=== PATIENT | male | born 1960 | race Caucasian/White ===

== ENCOUNTER 2016-12-14 13:12 | Observation (INO) | payer MEDICAID, MEDICARE ==
[~2016-12-14] VITALS: Ht 165.1 cm; Wt 77.8 kg
[~2016-12-14 13:12] MED LIST: ACET-1600 PO; ACET325T14 PO; AMLO10TA2 PO; ASPI-496 PO; ASPI-515 PO; ASPI-621 PO; CARV-39 PO; CARV3.1212 PO; CARV3.122 PO; CARV6.2512 PO; CLOP75TA PO; ENAL5TAB PO; ENAL5TAB34 PO; ESCI10TA10 PO; ESCI20TA PO; FLUO20CA8 PO; FURO-92 PO; FURO-93 PO; GABA300C PO; GABA600T2 PO; GLYB2.5T2 PO; HYDR-3138 PO; HYDR-3240 PO; IBUP800T PO; INSU100V8 SQ; INSULIN GLARGINE HUM REC ANLOG SQ; ISOS30TA8 PO; LISI2.5T PO; LISI40TA PO; LISI5TAB7 PO; LITH150C PO; LORA-445 PO; LORA10TA62 PO; MAGN400T26 PO; MAGN64TA9 PO; METF100010 PO; METF10002 PO; METF500T3 PO; METH500T7 PO; METO10TA2 PO; METO5TAB57 PO; MULT-257 PO; NITR0.4T SL; OMEP20TA62 PO; OMEP40CA6 PO; OXYC5TAB3 PO; PANT40TA3 PO; POTA20TA14 PO; SIMV20TA PO; SIMV20TA3 PO; SIMV40TA3 PO; SPIR25TA3 PO; TRAM-28 PO
[2016-12-14] MEDS ORDERED: MAALOX/HYOSCYAMINE/LIDOCAINE 45 ML BOTTLE PO ONE (13:30)
[2016-12-14] MEDS ORDERED: PLEASE ENTER HEIGHT AND WEIGHT MC SCH (13:30)
[2016-12-14] MEDS ORDERED: ASPIRIN 81 MG TABLET CHEW PO ONE (13:30)
[2016-12-14] MEDS ORDERED: SODIUM CHLORIDE FLUSH 10ML SYR IVF ONE (13:30)
[2016-12-14] MEDS ORDERED: ONDANSETRON 2MG/ML, 2ML IVPush ONE (13:30)
[2016-12-14 13:52] LABS: BLOOD UREA NITROGEN 20 mg/dL (7-18)
[2016-12-14 13:59] LABS: IS PT STATUS REG ER OR PRE ER? YES
[2016-12-14] MEDS ORDERED: MORPHINE SULFATE 4 MG/ML, 1ML ONE ×2 (14:13→15:43)
[2016-12-14] MEDS ORDERED: ONDANSETRON 2MG/ML, 2ML ONE (14:13)
[2016-12-14] MEDS ORDERED: MAALOX/HYOSCYAMINE/LIDOCAINE 45 ML BOTTLE ONE (14:13)
[2016-12-14] MEDS: MORPHINE SULFATE 4 MG/ML, 1ML IVPush PRN ×2 (14:15→15:45)
[2016-12-14] MEDS ORDERED: SODIUM CHLORIDE FLUSH 10ML SYR IVF PRN (15:00)
[2016-12-14] MEDS ORDERED: HYDROcodone/APAP 5/325 TABLET PO PRN (15:30)
[2016-12-14] MEDS ORDERED: NITROGLYCERIN 0.4 MG BOTTLE (25 TABS) SL PRN (15:30)
[2016-12-14] MEDS ORDERED: ACETAMINOPHEN 325 MG TABLET PO PRN (15:30)
[2016-12-14] MEDS ORDERED: DOCUSATE 100 MG CAPSULE PO PRN (15:30)
[2016-12-14] MEDS ORDERED: hydrALAzine 20 MG/ML, 1ML IVPush PRN (15:30)
[2016-12-14] MEDS ORDERED: LORazepam 2 MG/ML, 1ML IVPush PRN (15:30)
[2016-12-14] MEDS ORDERED: morphine SULFATE 10 MG/ML, 1ML IVPush PRN (15:30)
[2016-12-14] MEDS ORDERED: ONDANSETRON 2MG/ML, 2ML IVPush PRN (15:30)
[2016-12-14] MEDS ORDERED: POLYETHYLENE GLYCOL 17 GM PACKET PO PRN (15:30)
[2016-12-14 16:04] VITALS: BP 111/76
[2016-12-14] MEDS: HEPARIN 5,000 UNITS/ML, 1ML SQ SCH (16:46)
[2016-12-14] MEDS ORDERED: SODIUM PHOSPHATE 30 MMOL in SODIUM CHLORIDE 0.9% 500 ML IV ONE (17:00)
[2016-12-14 19:34] LABS: IS PT STATUS REG ER OR PRE ER? NO
[2016-12-14 19:45] VITALS: BP 118/76
[2016-12-14] MEDS ORDERED: SIMVASTATIN 40 MG TABLET PO SCH (21:00)
[2016-12-14] MEDS ORDERED: QUETIAPINE 100MG TABLET PO PRN (21:00)
[2016-12-14] MEDS ORDERED: QUETIAPINE 100MG TABLET PO SCH (21:00)
[2016-12-15 01:22] VITALS: BP 150/80
[2016-12-15] MEDS: HEPARIN 5,000 UNITS/ML, 1ML SQ SCH ×2 (01:24→07:36)
[2016-12-15 02:32] LABS: ASPARTATE AMINO TRANSFERASE 13 U/L (15-37); BLOOD UREA NITROGEN 22 mg/dL (7-18)
[2016-12-15 02:37] LABS: IS PT STATUS REG ER OR PRE ER? NO
[2016-12-15 07:24] VITALS: BP 114/74
[2016-12-15] MEDS ORDERED: FLUOXETINE 20 MG CAPSULE PO SCH (09:00)
[2016-12-15] MEDS ORDERED: ASPIRIN 81 MG TABLET EC PO SCH (09:00)
[2016-12-15 10:12] VITALS: BP 173/102
[2016-12-15] MEDS ORDERED: LORA-446 PO (12:32)
[2016-12-15] MEDS ORDERED: HYDR25CA PO (13:01)
== END 2016-12-15 16:01 | disposition home or self-care (01) ==
LOC: ED 14:13 → EDIP 14:35 → INTOOBSV 14:35 → 5SO 16:06
PROVIDERS: ADMIT Internal Medicine; ATTEND Internal Medicine
DX: I25.110 Atherosclerotic heart disease of native coronary artery with unstable angina pectoris (principal); I50.22 Chronic systolic (congestive) heart failure; I13.0 Hypertensive heart and chronic kidney disease with heart failure and stage 1 through stage 4 chronic kidney disease, or unspecified chronic kidney disease; I25.5 Ischemic cardiomyopathy; E11.22 Type 2 diabetes mellitus with diabetic chronic kidney disease; N18.2 Chronic kidney disease, stage 2 (mild); E78.5 Hyperlipidemia, unspecified; F41.9 Anxiety disorder, unspecified; F31.9 Bipolar disorder, unspecified; F14.10 Cocaine abuse, uncomplicated; D72.829 Elevated white blood cell count, unspecified; E83.39 Other disorders of phosphorus metabolism; D63.8 Anemia in other chronic diseases classified elsewhere; I25.2 Old myocardial infarction; K21.9 Gastro-esophageal reflux disease without esophagitis; E66.9 Obesity, unspecified; Z95.1 Presence of aortocoronary bypass graft; Z95.0 Presence of cardiac pacemaker; Z91.5 Personal history of self-harm; Z91.14 Patient's other noncompliance with medication regimen; Z95.5 Presence of coronary angioplasty implant and graft; Z95.810 Presence of automatic (implantable) cardiac defibrillator; Z80.9 Family history of malignant neoplasm, unspecified; Z82.41 Family history of sudden cardiac death; Z82.49 Family history of ischemic heart disease and other diseases of the circulatory system
CPT/HCPCS: 36415; 71010; 80048; 80053; 80061; 82040; 82962; 83036; 83735; 83880; 84100; 84443; 84484; 85025; 93005; 96365; 96366; 96372; 96375; 96376; 99285; C8929; G0378; J1644; J2060; J2270; J2405; J7040

== ENCOUNTER 2016-12-17 05:45 | Emergency (ER) | payer MEDICARE, MEDICAID ==
[~2016-12-17 05:45] MED LIST changes: +HYDR25CA PO; +LORA-446 PO
[2016-12-17 05:47] VITALS: BP 132/90
[2016-12-17] MEDS ORDERED: DIPH,PERTUSS(ACELL),TET VAC/PF 0.5 ML IM-VACC ONE ×2 (06:00→06:06)
[2016-12-17] MEDS ORDERED: LIDOCAINE 1%, 20ML SQ ONE (06:00)
[2016-12-17] MEDS ORDERED: CLOP75TA22 PO (06:02)
[2016-12-17] MEDS ORDERED: HYDR25TA6 PO (06:03)
[2016-12-17] MEDS ORDERED: LIDOCAINE 1%, 20ML ONE (06:05)
== END 2016-12-17 07:52 | disposition home or self-care (01) ==
LOC: ED 07:09
DX: S01.311A Laceration without foreign body of right ear, initial encounter (principal); I11.0 Hypertensive heart disease with heart failure; I50.9 Heart failure, unspecified; E11.9 Type 2 diabetes mellitus without complications; I25.810 Atherosclerosis of coronary artery bypass graft(s) without angina pectoris; Z95.1 Presence of aortocoronary bypass graft; W19.XXXA Unspecified fall, initial encounter; Y93.89 Activity, other specified; Y92.009 Unspecified place in unspecified non-institutional (private) residence as the place of occurrence of the external cause; Y99.9 Unspecified external cause status
CPT/HCPCS: 12011; 70450; 90471; 90715

== ENCOUNTER 2017-01-11 09:30 | Observation (INO) | payer MEDICARE, MEDICAID ==
[~2017-01-11] VITALS: Ht 170.2 cm; Wt 82.8 kg
[~2017-01-11 09:30] MED LIST changes: +CLOP75TA22 PO; +HYDR25TA6 PO
[2017-01-11] MEDS ORDERED: ONDANSETRON 2MG/ML, 2ML ONE (09:50)
[2017-01-11] MEDS ORDERED: MORPHINE SULFATE 4 MG/ML, 1ML ONE ×2 (09:50→10:14)
[2017-01-11] MEDS: MORPHINE SULFATE 4 MG/ML, 1ML IVPush PRN ×2 (09:53→10:15)
[2017-01-11] MEDS ORDERED: ONDANSETRON 2MG/ML, 2ML IVPush ONE (10:00)
[2017-01-11] MEDS ORDERED: SODIUM CHLORIDE FLUSH 10ML SYR IVF ONE (10:00)
[2017-01-11 10:24] LABS: ASPARTATE AMINO TRANSFERASE 9 U/L (15-37); BLOOD UREA NITROGEN 22 mg/dL (7-18)
[2017-01-11 10:29] LABS: IS PT STATUS REG ER OR PRE ER? YES
[2017-01-11] MEDS ORDERED: ACAM333T7 PO (10:36)
[2017-01-11] MEDS ORDERED: PANT40TA5 PO (10:36)
[2017-01-11] MEDS ORDERED: FLUO20CA8 PO (10:36)
[2017-01-11] MEDS ORDERED: ESCI20TA PO (10:36)
[2017-01-11] MEDS ORDERED: GABA300C10 PO (10:36)
[2017-01-11] MEDS ORDERED: NAPR500T3 PO (10:36)
[2017-01-11] MEDS ORDERED: QUET100T PO (10:36)
[2017-01-11] MEDS ORDERED: SODIUM CHLORIDE 0.9% 1,000ML IVBOLUS ONE (11:30)
[2017-01-11] MEDS ORDERED: ENOXAPARIN 40 MG/0.4 ML ONE (12:27)
[2017-01-11] MEDS: ENOXAPARIN 40 MG/0.4 ML SQ SCH (12:29)
[2017-01-11] MEDS ORDERED: BISACODYL 10 MG SUPP PR PRN (12:30)
[2017-01-11] MEDS ORDERED: POLYETHYLENE GLYCOL 17 GM PACKET PO PRN (12:30)
[2017-01-11] MEDS ORDERED: ONDANSETRON 2MG/ML, 2ML IVPush PRN (12:30)
[2017-01-11] MEDS ORDERED: NITROGLYCERIN 0.4 MG BOTTLE (25 TABS) SL PRN (12:30)
[2017-01-11] MEDS ORDERED: ACETAMINOPHEN 325 MG TABLET PO PRN (12:30)
[2017-01-11] MEDS ORDERED: DOCUSATE 100 MG CAPSULE PO PRN (12:30)
[2017-01-11 14:01] VITALS: BP 125/84
[2017-01-11] MEDS: morphine SULFATE 10 MG/ML, 1ML IVPush PRN ×3 (14:34→21:16)
[2017-01-11 16:26] LABS: IS PT STATUS REG ER OR PRE ER? NO
[2017-01-11] MEDS: GABAPENTIN 300 MG CAPSULE PO SCH ×2 (17:24→21:17)
[2017-01-11] MEDS: ACAMPROSATE 333 MG TABLET.DR PO SCH ×2 (17:24→21:17)
[2017-01-11 17:33] LABS: DAU SCREEN DISCLAIMER
[2017-01-11 19:59] VITALS: BP 110/75
[2017-01-11] MEDS ORDERED: SIMVASTATIN 40 MG TABLET PO SCH (21:00)
[2017-01-11] MEDS: SODIUM CHLORIDE FLUSH 3ML SYRINGE IVF SCH (21:00)
[2017-01-11] MEDS ORDERED: QUETIAPINE 100MG TABLET PO SCH (21:00)
[2017-01-11] MEDS: PANTOPROZOLE 40MG TABLET PO SCH (21:17)
[2017-01-11] MEDS: NAPROXEN 500 MG TABLET PO SCH (21:17)
[2017-01-11 23:02] LABS: IS PT STATUS REG ER OR PRE ER? NO
[2017-01-12] MEDS: morphine SULFATE 10 MG/ML, 1ML IVPush PRN ×2 (00:36→06:26)
[2017-01-12 00:38] VITALS: BP 110/74
[2017-01-12 05:25] LABS: BLOOD UREA NITROGEN 21 mg/dL (7-18)
[2017-01-12 07:34] VITALS: BP 100/67
[2017-01-12] MEDS: PANTOPROZOLE 40MG TABLET PO SCH (07:55)
[2017-01-12] MEDS: ACAMPROSATE 333 MG TABLET.DR PO SCH ×2 (07:55→14:57)
[2017-01-12] MEDS: GABAPENTIN 300 MG CAPSULE PO SCH ×2 (07:55→14:57)
[2017-01-12] MEDS: NAPROXEN 500 MG TABLET PO SCH (07:55)
[2017-01-12] MEDS: SODIUM CHLORIDE FLUSH 3ML SYRINGE IVF SCH (07:56)
[2017-01-12] MEDS ORDERED: REGADENOSON 0.4 MG/5 ML SYRINGE ONE (08:00)
[2017-01-12] MEDS ORDERED: CITALOPRAM 20 MG TABLET PO SCH (09:00)
[2017-01-12] MEDS ORDERED: ASPIRIN 81 MG TABLET EC PO SCH (09:00)
[2017-01-12] MEDS ORDERED: FLUOXETINE 20 MG CAPSULE PO SCH (09:00)
[2017-01-12] MEDS ORDERED: CLOPIDOGREL 75 MG TABLET PO SCH (09:00)
[2017-01-12 11:33] VITALS: BP 162/78
[2017-01-12] MEDS: ENOXAPARIN 40 MG/0.4 ML SQ SCH (11:34)
[2017-01-12] MEDS ORDERED: OXYcodone IR 5MG TABLET ONE (13:10)
[2017-01-12] MEDS ORDERED: OXYcodone IR 5MG TABLET PO PRN (13:30)
[2017-01-12] MEDS ORDERED: OXYC5TAB3 PO (14:16)
[2017-01-12] MEDS ORDERED: ISOS30TA8 PO (14:16)
[2017-01-12] MEDS ORDERED: OMNIPAQUE 350 MG/ML, 100ML BOTTLE ONE (16:46)
== END 2017-01-12 17:30 | disposition home or self-care (01) ==
LOC: ED 11:39 → SUATTDRO 11:58 → EDIP 12:16 → INTOOBSV 12:16 → 5SO 13:47 → UNDODISIN 01-12 17:30
DX: R07.9 Chest pain, unspecified (principal); I13.0 Hypertensive heart and chronic kidney disease with heart failure and stage 1 through stage 4 chronic kidney disease, or unspecified chronic kidney disease; E11.22 Type 2 diabetes mellitus with diabetic chronic kidney disease; N18.2 Chronic kidney disease, stage 2 (mild); I50.22 Chronic systolic (congestive) heart failure; E87.2 Acidosis; E78.5 Hyperlipidemia, unspecified; D72.829 Elevated white blood cell count, unspecified; I42.9 Cardiomyopathy, unspecified; K21.9 Gastro-esophageal reflux disease without esophagitis; I25.2 Old myocardial infarction; F31.9 Bipolar disorder, unspecified; F12.90 Cannabis use, unspecified, uncomplicated; E86.0 Dehydration; D63.8 Anemia in other chronic diseases classified elsewhere; Z79.82 Long term (current) use of aspirin; Z95.810 Presence of automatic (implantable) cardiac defibrillator; Z95.5 Presence of coronary angioplasty implant and graft; Z91.5 Personal history of self-harm; Z87.891 Personal history of nicotine dependence; Z82.49 Family history of ischemic heart disease and other diseases of the circulatory system
CPT/HCPCS: 36415; 71010; 71275; 78452; 80048; 80053; 80061; 80307; 83036; 83880; 84484; 85025; 85379; 93005; 93017; 96372; 96374; 96375; 96376; 99285; A9502; C9898; G0378; J1650; J2270; J2405; J2785; J7030; Q9967

== ENCOUNTER 2017-01-22 12:16 | Emergency (ER) | payer MEDICARE, MEDICAID ==
[~2017-01-22] VITALS: Ht 165.1 cm; Wt 82.0 kg
[~2017-01-22 12:16] MED LIST changes: +ACAM333T7 PO; +GABA300C10 PO; +NAPR500T3 PO; +PANT40TA5 PO; +QUET100T PO
[2017-01-22] MEDS ORDERED: SODIUM CHLORIDE 0.9% 1,000 ML IV ONE (12:21)
[2017-01-22] MEDS ORDERED: SODIUM CHLORIDE FLUSH 10ML SYR IVF ONE (12:30)
[2017-01-22] MEDS ORDERED: MORPHINE SULFATE 4 MG/ML, 1ML IVPush PRN (12:30)
[2017-01-22] MEDS ORDERED: KETOROLAC 30 MG/1 ML IVPush ONE (13:00)
[2017-01-22 13:05] LABS: BLOOD UREA NITROGEN 22 mg/dL (7-18)
[2017-01-22 13:10] LABS: ASPARTATE AMINO TRANSFERASE 13 U/L (15-37)
[2017-01-22 13:11] LABS: IS PT STATUS REG ER OR PRE ER? YES
[2017-01-22] MEDS ORDERED: MORPHINE SULFATE 4 MG/ML, 1ML ONE (13:30)
[2017-01-22] MEDS ORDERED: ONDANSETRON 2MG/ML, 2ML ONE (13:30)
[2017-01-22] MEDS ORDERED: KETOROLAC 30 MG/1 ML ONE (14:16)
[2017-01-22] MEDS ORDERED: ONDANSETRON 2MG/ML, 2ML IVPush ONE (15:00)
[2017-01-22 15:14] VITALS: BP 119/80
== END 2017-01-22 15:31 | disposition home or self-care (01) ==
LOC: ED 12:35
DX: R07.89 Other chest pain (principal); E11.9 Type 2 diabetes mellitus without complications; E78.00 Pure hypercholesterolemia, unspecified; E66.9 Obesity, unspecified; I11.9 Hypertensive heart disease without heart failure; I25.10 Atherosclerotic heart disease of native coronary artery without angina pectoris; Z79.82 Long term (current) use of aspirin; Z95.0 Presence of cardiac pacemaker; Z95.1 Presence of aortocoronary bypass graft; Z95.5 Presence of coronary angioplasty implant and graft
CPT/HCPCS: 36415; 71010; 80053; 83690; 83880; 84484; 85025; 85379; 93005; 96374; 96375; 99285; J1885; J2405; J7030

== ENCOUNTER 2017-02-05 09:11 | Inpatient (IN) | payer MEDICARE, MEDICAID ==
[~2017-02-05] VITALS: Ht 165.1 cm; Wt 80.4 kg
[2017-02-05] MEDS ORDERED: SODIUM CHLORIDE FLUSH 10ML SYR IVF ONE (09:30)
[2017-02-05] MEDS ORDERED: MORPHINE SULFATE 4 MG/ML, 1ML ONE ×2 (09:49→11:07)
[2017-02-05] MEDS: MORPHINE SULFATE 4 MG/ML, 1ML IVPush PRN ×2 (09:51→11:11)
[2017-02-05 10:03] LABS: ASPARTATE AMINO TRANSFERASE 13 U/L (15-37); BLOOD UREA NITROGEN 14 mg/dL (7-18)
[2017-02-05 10:07] LABS: IS PT STATUS REG ER OR PRE ER? YES
[2017-02-05] MEDS ORDERED: SODIUM CHLORIDE FLUSH 10ML SYR IVF PRN (10:30)
[2017-02-05] MEDS ORDERED: METHOCARBAMOL 500 MG TABLET PO SCH (11:00)
[2017-02-05] MEDS ORDERED: METHOCARBAMOL 750 MG TABLET ONE ×2 (11:07→11:13)
[2017-02-05] MEDS ORDERED: ACETAMINOPHEN 650 MG/20.3 ML UDC PO PRN (11:30)
[2017-02-05] MEDS ORDERED: NITROGLYCERIN SINGLE TAB 0.4 MG SL PRN (11:30)
[2017-02-05] MEDS ORDERED: OXYcodone IR 5MG TABLET PO PRN (11:30)
[2017-02-05] MEDS ORDERED: morphine SULFATE 10 MG/ML, 1ML IV PRN (11:30)
[2017-02-05] MEDS ORDERED: KETOROLAC 30 MG/1 ML IVPush PRN (11:30)
[2017-02-05] MEDS ORDERED: ONDANSETRON 2MG/ML, 2ML IVP PRN (11:30)
[2017-02-05 12:15] VITALS: BP 107/73
[2017-02-05] MEDS: LIDODERM 5% PATCH TD SCH (13:04)
[2017-02-05] MEDS: ENOXAPARIN 40 MG/0.4 ML SQ SCH (13:04)
[2017-02-05] MEDS: GABAPENTIN 300 MG CAPSULE PO SCH ×2 (15:05→20:54)
[2017-02-05] MEDS: METHOCARBAMOL 750 MG TABLET PO SCH ×2 (15:05→20:54)
[2017-02-05 15:14] VITALS: BP 122/76
[2017-02-05 16:17] LABS: IS PT STATUS REG ER OR PRE ER? NO
[2017-02-05 20:35] VITALS: BP 119/82
[2017-02-05] MEDS: PANTOPROZOLE 40MG TABLET PO SCH (20:54)
[2017-02-05] MEDS: SODIUM CHLORIDE FLUSH 10ML SYR IVF SCH (20:54)
[2017-02-05] MEDS: OXYcodone IR 5MG TABLET PO PRN (20:55)
[2017-02-05] MEDS ORDERED: SIMVASTATIN 40 MG TABLET PO SCH (21:00)
[2017-02-05] MEDS ORDERED: QUETIAPINE 100MG TABLET PO SCH (21:00)
[2017-02-05 21:32] LABS: IS PT STATUS REG ER OR PRE ER? NO
[2017-02-06 01:03] VITALS: BP 149/81
[2017-02-06 05:12] LABS: BLOOD UREA NITROGEN 26 mg/dL (7-18)
[2017-02-06 05:15] LABS: ASPARTATE AMINO TRANSFERASE 13 U/L (15-37)
[2017-02-06] MEDS ORDERED: ASPIRIN 325 MG TABLET EC PO SCH (06:00)
[2017-02-06] MEDS: METHOCARBAMOL 750 MG TABLET PO SCH ×2 (07:08→09:57)
[2017-02-06 07:58] VITALS: BP 111/83
[2017-02-06] MEDS: PANTOPROZOLE 40MG TABLET PO SCH (08:24)
[2017-02-06] MEDS: OXYcodone IR 5MG TABLET PO PRN (08:24)
[2017-02-06] MEDS: SODIUM CHLORIDE FLUSH 10ML SYR IVF SCH (08:24)
[2017-02-06] MEDS: GABAPENTIN 300 MG CAPSULE PO SCH (08:25)
[2017-02-06] MEDS ORDERED: ISOSORBIDE MONONITRATE ER 30 MG TABLET PO SCH (09:00)
[2017-02-06] MEDS ORDERED: CITALOPRAM 20 MG TABLET PO SCH (09:00)
[2017-02-06] MEDS ORDERED: QUETIAPINE 100MG TABLET PO SCH (09:00)
[2017-02-06] MEDS ORDERED: OXYC5TAB3 PO (09:12)
[2017-02-06] MEDS ORDERED: METH750T2 PO (09:12)
[2017-02-06] MEDS ORDERED: GABA300C10 PO (09:12)
[2017-02-06] MEDS ORDERED: LIDO700A5 TD (09:12)
[2017-02-06] MEDS ORDERED: FENO54TA17 PO (09:12)
[2017-02-06] MEDS ORDERED: OMEG1CAP6 PO (09:12)
[2017-02-06] MEDS: ENOXAPARIN 40 MG/0.4 ML SQ SCH (11:00)
[2017-02-06] MEDS: LIDODERM 5% PATCH TD SCH (11:00)
[2017-02-06] MEDS ORDERED: GABAPENTIN 300 MG CAPSULE PO SCH (16:00)
[2017-02-07] MEDS ORDERED: OMEGA-3/FISH OIL CAPSULE PO SCH (09:00)
[2017-02-07] MEDS ORDERED: FENOFIBRATE 54 MG TABLET PO SCH (09:00)
== END 2017-02-06 13:25 | disposition home or self-care (01) | DRG 206 ==
LOC: ED 09:37 → EDIP 10:19 → 5SO 12:13 → DCLOUNGE 02-06 12:21
PROVIDERS: ADMIT Hospitalist; ATTEND Hospitalist
DX: M94.0 Chondrocostal junction syndrome [Tietze] (principal); I25.110 Atherosclerotic heart disease of native coronary artery with unstable angina pectoris; I50.22 Chronic systolic (congestive) heart failure; I13.0 Hypertensive heart and chronic kidney disease with heart failure and stage 1 through stage 4 chronic kidney disease, or unspecified chronic kidney disease; D63.8 Anemia in other chronic diseases classified elsewhere; E78.1 Pure hyperglyceridemia; E78.5 Hyperlipidemia, unspecified; F31.9 Bipolar disorder, unspecified; I25.5 Ischemic cardiomyopathy; K21.9 Gastro-esophageal reflux disease without esophagitis; F41.9 Anxiety disorder, unspecified; N18.2 Chronic kidney disease, stage 2 (mild); E11.22 Type 2 diabetes mellitus with diabetic chronic kidney disease; Z82.49 Family history of ischemic heart disease and other diseases of the circulatory system; I25.2 Old myocardial infarction; Z91.5 Personal history of self-harm; Z95.5 Presence of coronary angioplasty implant and graft; Z95.810 Presence of automatic (implantable) cardiac defibrillator; Z82.62 Family history of osteoporosis
CPT/HCPCS: 36415; 71010; 80053; 80061; 82962; 83880; 84484; 85025; 85610; 85730; 93005; 96374; 96375; J1650; J1885; Q0177

== ENCOUNTER 2017-02-16 20:17 | Emergency (ER) | payer MEDICARE, MEDICAID ==
[~2017-02-16] VITALS: Ht 172.7 cm; Wt 86.4 kg
[~2017-02-16 20:17] MED LIST changes: +FENO54TA17 PO; +LIDO700A5 TD; +METH750T2 PO; +OMEG1CAP6 PO
[2017-02-16] MEDS ORDERED: SODIUM CHLORIDE FLUSH 10ML SYR IVF ONE (20:30)
[2017-02-16 20:54] LABS: BLOOD UREA NITROGEN 24 mg/dL (7-18)
[2017-02-16] MEDS ORDERED: KETOROLAC 30 MG/1 ML IVPush ONE (21:30)
[2017-02-16] MEDS ORDERED: KETOROLAC 30 MG/1 ML ONE (22:10)
[2017-02-16 23:30] VITALS: BP 162/98
== END 2017-02-17 00:02 | disposition home or self-care (01) ==
LOC: ED 20:42
DX: R07.89 Other chest pain (principal); K21.9 Gastro-esophageal reflux disease without esophagitis; I11.0 Hypertensive heart disease with heart failure; I50.9 Heart failure, unspecified; E11.9 Type 2 diabetes mellitus without complications; I25.2 Old myocardial infarction; Z95.5 Presence of coronary angioplasty implant and graft; Z95.0 Presence of cardiac pacemaker
CPT/HCPCS: 36415; 71010; 80048; 82040; 84484; 85025; 93005; 96374; 99285; J1885

== ENCOUNTER 2017-04-19 10:19 | Inpatient (IN) | payer MEDICARE, MEDICAID ==
[~2017-04-19] VITALS: Ht 165.1 cm; Wt 80.0 kg
[~2017-04-19 10:19] MED LIST changes: -CLOP75TA22 PO; +CLOP75TA52 PO; -ENAL5TAB34 PO; +ENAL5TAB70 PO; -HYDR-3138 PO; +HYDR-3237 PO; +IBUP-1223 PO; -IBUP800T PO; -TRAM-28 PO; +TRAM-47 PO
[2017-04-19] MEDS ORDERED: HYDR10TA4 PO (10:46)
[2017-04-19] MEDS ORDERED: GABA300C10 PO (10:50)
[2017-04-19] MEDS ORDERED: NITR0.6T4 PO (10:52)
[2017-04-19] MEDS ORDERED: ACAM333T7 PO (10:53)
[2017-04-19] MEDS ORDERED: ONDANSETRON 2MG/ML, 2ML IVPush ONE (11:00)
[2017-04-19] MEDS ORDERED: SODIUM CHLORIDE FLUSH 10ML SYR IVF ONE (11:00)
[2017-04-19] MEDS ORDERED: PANT40TA5 PO (11:01)
[2017-04-19] MEDS ORDERED: NAPR500T3 PO (11:03)
[2017-04-19] MEDS ORDERED: LINA5TAB PO (11:04)
[2017-04-19] MEDS ORDERED: CLOP75TA52 PO (11:04)
[2017-04-19] MEDS ORDERED: FLUO20CA8 PO (11:05)
[2017-04-19] MEDS ORDERED: MORPHINE SULFATE 4 MG/ML, 1ML ONE ×2 (11:09→14:22)
[2017-04-19] MEDS ORDERED: ONDANSETRON 2MG/ML, 2ML ONE (11:09)
[2017-04-19] MEDS: MORPHINE SULFATE 4 MG/ML, 1ML IVPush PRN ×2 (11:11→14:23)
[2017-04-19 11:18] LABS: HEMATOCRIT 46.9 % (39.2-51.8); HEMOGLOBIN 15.8 g/dL (13.7-18.0); WHITE BLOOD COUNT 14.9 x10^3/uL (3.4-10)
[2017-04-19 11:32] LABS: ASPARTATE AMINO TRANSFERASE 12 U/L (15-37); BLOOD UREA NITROGEN 20 mg/dL (7-18)
[2017-04-19 11:37] LABS: IS PT STATUS REG ER OR PRE ER? YES
[2017-04-19] MEDS ORDERED: SODIUM CHLORIDE 0.9% 1,000 ML IV ONE (12:46)
[2017-04-19] MEDS ORDERED: SODIUM CHLORIDE FLUSH 10ML SYR IVF PRN (13:00)
[2017-04-19] MEDS ORDERED: morphine SULFATE 10 MG/ML, 1ML IVPush PRN (14:30)
[2017-04-19] MEDS ORDERED: BISACODYL 10 MG SUPP PR PRN (14:30)
[2017-04-19] MEDS ORDERED: ACETAMINOPHEN 325 MG TABLET PO PRN (14:30)
[2017-04-19] MEDS ORDERED: NITROGLYCERIN 0.4 MG BOTTLE (25 TABS) SL PRN ×2 (14:30)
[2017-04-19] MEDS ORDERED: LABETALOL 5MG/ML, 20ML IVPush PRN (14:30)
[2017-04-19] MEDS ORDERED: POLYETHYLENE GLYCOL 17 GM PACKET PO PRN (14:30)
[2017-04-19] MEDS ORDERED: ENALAPRILAT 1.25 MG/ML, 2ML IVPush PRN (14:30)
[2017-04-19] MEDS ORDERED: DEXTROSE 50%, 50ML SYRINGE IVPush PRN (15:00)
[2017-04-19] MEDS ORDERED: GLUCAGON 1 MG IM PRN (15:00)
[2017-04-19] MEDS ORDERED: DEXTROSE 4 GM TAB.CHEW PO PRN (15:00)
[2017-04-19 15:10] LABS: IS PT STATUS REG ER OR PRE ER? YES
[2017-04-19] MEDS: INSULIN ASPART 100 UNITS/ML, PEN SQ-INSULIN SCH ×2 (16:00→21:00)
[2017-04-19 16:33] VITALS: BP 114/80
[2017-04-19] MEDS: MAALOX/HYOSCYAMINE/LIDOCAINE 45 ML BTL PO PRN (18:43)
[2017-04-19 20:10] VITALS: BP 127/84
[2017-04-19] MEDS ORDERED: DOCUSATE 100 MG CAPSULE PO PRN (21:00)
[2017-04-19] MEDS: SIMVASTATIN 40 MG TABLET PO SCH (21:12)
[2017-04-19] MEDS: FAMOTIDINE 20 MG/2 ML IVPush SCH (21:12)
[2017-04-19] MEDS: GABAPENTIN 300 MG CAPSULE PO SCH (21:12)
[2017-04-19] MEDS: SODIUM CHLORIDE FLUSH 10ML SYR IVF SCH (21:14)
[2017-04-19 21:15] LABS: IS PT STATUS REG ER OR PRE ER? NO
[2017-04-19 21:16] VITALS: BP 134/93
[2017-04-19] MEDS: ONDANSETRON 2MG/ML, 2ML IVPush PRN (21:24)
[2017-04-19 21:37] VITALS: BP 176/110
[2017-04-19 21:45] VITALS: BP 143/95
[2017-04-19] MEDS: QUETIAPINE 100MG TABLET PO SCH (22:34)
[2017-04-20 01:59] VITALS: BP 117/77
[2017-04-20 05:19] LABS: HEMATOCRIT 42.5 % (39.2-51.8); HEMOGLOBIN 14.3 g/dL (13.7-18.0); WHITE BLOOD COUNT 11.3 x10^3/uL (3.4-10)
[2017-04-20 05:31] LABS: ASPARTATE AMINO TRANSFERASE 12 U/L (15-37); BLOOD UREA NITROGEN 30 mg/dL (7-18)
[2017-04-20] MEDS ORDERED: ASPIRIN 325 MG TABLET EC PO SCH (06:00)
[2017-04-20] MEDS: INSULIN ASPART 100 UNITS/ML, PEN SQ-INSULIN SCH ×4 (07:00→20:15)
[2017-04-20 07:35] VITALS: BP 134/72
[2017-04-20] MEDS: GABAPENTIN 300 MG CAPSULE PO SCH ×2 (08:39→20:06)
[2017-04-20] MEDS: CITALOPRAM 20 MG TABLET PO SCH (08:39)
[2017-04-20] MEDS: SODIUM CHLORIDE FLUSH 10ML SYR IVF SCH ×2 (08:39→20:05)
[2017-04-20] MEDS: CLOPIDOGREL 75 MG TABLET PO SCH (08:39)
[2017-04-20] MEDS: FAMOTIDINE 20 MG/2 ML IVPush SCH ×2 (08:39→20:05)
[2017-04-20] MEDS ORDERED: QUETIAPINE 100MG TABLET PO SCH (09:00)
[2017-04-20 14:17] VITALS: BP 147/79
[2017-04-20] MEDS: ISOSORBIDE MONONITRATE ER 30 MG TABLET PO SCH (14:18)
[2017-04-20] MEDS: METOPROLOL SUCCINATE 50 MG TAB.ER.24H PO SCH (14:19)
[2017-04-20 14:57] VITALS: BP 108/73
[2017-04-20] MEDS: MAALOX/HYOSCYAMINE/LIDOCAINE 45 ML BTL PO PRN (17:46)
[2017-04-20] MEDS: QUETIAPINE 100MG TABLET PO SCH (20:06)
[2017-04-20] MEDS: SIMVASTATIN 40 MG TABLET PO SCH (20:06)
[2017-04-20] MEDS: OXYcodone IR 5MG TABLET PO PRN (20:06)
[2017-04-20 21:08] VITALS: BP 101/66
[2017-04-21] VITALS (12 sets, daily range): BP systolic 69–136; BP diastolic 47–80
[2017-04-21] MEDS: INSULIN ASPART 100 UNITS/ML, PEN SQ-INSULIN SCH ×4 (07:00→20:06)
[2017-04-21] MEDS: ISOSORBIDE MONONITRATE ER 30 MG TABLET PO SCH (08:22)
[2017-04-21] MEDS: CITALOPRAM 20 MG TABLET PO SCH (08:22)
[2017-04-21] MEDS: ASPIRIN 81 MG TABLET EC PO SCH (08:22)
[2017-04-21] MEDS: CLOPIDOGREL 75 MG TABLET PO SCH (08:23)
[2017-04-21] MEDS: GABAPENTIN 300 MG CAPSULE PO SCH ×2 (08:24→20:26)
[2017-04-21] MEDS: SODIUM CHLORIDE FLUSH 10ML SYR IVF SCH ×2 (08:24→20:26)
[2017-04-21] MEDS: FAMOTIDINE 20 MG/2 ML IVPush SCH (08:24)
[2017-04-21] MEDS: MAALOX/HYOSCYAMINE/LIDOCAINE 45 ML BTL PO PRN (08:47)
[2017-04-21] MEDS: LISINOPRIL 5 MG TABLET PO SCH (10:58)
[2017-04-21] MEDS: OXYcodone IR 5MG TABLET PO PRN (10:58)
[2017-04-21] MEDS: OMEPRAZOLE 20 MG CAPSULE.DR PO SCH ×2 (10:58→20:26)
[2017-04-21 12:12] LABS: DAU SCREEN DISCLAIMER
[2017-04-21] MEDS: METOPROLOL SUCCINATE 50 MG TAB.ER.24H PO SCH (14:56)
[2017-04-21] MEDS: SIMVASTATIN 40 MG TABLET PO SCH (20:26)
[2017-04-21] MEDS: QUETIAPINE 100MG TABLET PO SCH (20:26)
[2017-04-22 00:23] VITALS: BP_SYST 149; BP_SYST 88; BP_DIAS 62; BP_DIAS 66
[2017-04-22] MEDS: ASPIRIN 81 MG TABLET EC PO SCH (06:34)
[2017-04-22] MEDS: METOPROLOL SUCCINATE 50 MG TAB.ER.24H PO SCH (06:34)
[2017-04-22] MEDS: INSULIN ASPART 100 UNITS/ML, PEN SQ-INSULIN SCH ×4 (07:00→20:28)
[2017-04-22 07:19] VITALS: BP 116/81
[2017-04-22] MEDS: ONDANSETRON 2MG/ML, 2ML IVPush PRN (07:25)
[2017-04-22] MEDS: SODIUM CHLORIDE FLUSH 10ML SYR IVF SCH ×2 (07:25→20:36)
[2017-04-22] MEDS: CLOPIDOGREL 75 MG TABLET PO SCH (08:19)
[2017-04-22] MEDS: ISOSORBIDE MONONITRATE ER 30 MG TABLET PO SCH (08:19)
[2017-04-22] MEDS: GABAPENTIN 300 MG CAPSULE PO SCH ×2 (08:19→20:36)
[2017-04-22] MEDS: OXYcodone IR 5MG TABLET PO PRN ×2 (08:19→16:58)
[2017-04-22] MEDS: CITALOPRAM 20 MG TABLET PO SCH (08:19)
[2017-04-22] MEDS: OMEPRAZOLE 20 MG CAPSULE.DR PO SCH ×2 (08:20→20:36)
[2017-04-22] MEDS: LISINOPRIL 5 MG TABLET PO SCH (08:20)
[2017-04-22 13:59] VITALS: BP 110/68
[2017-04-22 19:29] VITALS: BP 95/61
[2017-04-22] MEDS: SENNA/DOCUSATE TABLET PO SCH (20:36)
[2017-04-22] MEDS: SIMVASTATIN 40 MG TABLET PO SCH (20:36)
[2017-04-22] MEDS: QUETIAPINE 100MG TABLET PO SCH (20:36)
[2017-04-23 01:34] VITALS: BP 97/52
[2017-04-23] MEDS: METOPROLOL SUCCINATE 50 MG TAB.ER.24H PO SCH (06:33)
[2017-04-23] MEDS: ASPIRIN 81 MG TABLET EC PO SCH (06:33)
[2017-04-23] MEDS: INSULIN ASPART 100 UNITS/ML, PEN SQ-INSULIN SCH ×2 (07:00→11:00)
[2017-04-23 07:37] VITALS: BP 117/81
[2017-04-23] MEDS: SODIUM CHLORIDE FLUSH 10ML SYR IVF SCH (07:50)
[2017-04-23] MEDS: CITALOPRAM 20 MG TABLET PO SCH (07:50)
[2017-04-23] MEDS: GABAPENTIN 300 MG CAPSULE PO SCH (07:50)
[2017-04-23] MEDS: ONDANSETRON 2MG/ML, 2ML IVPush PRN (07:50)
[2017-04-23] MEDS: OMEPRAZOLE 20 MG CAPSULE.DR PO SCH (07:50)
[2017-04-23] MEDS: CLOPIDOGREL 75 MG TABLET PO SCH (07:50)
[2017-04-23] MEDS: SENNA/DOCUSATE TABLET PO SCH (07:50)
[2017-04-23] MEDS: LISINOPRIL 5 MG TABLET PO SCH (07:54)
[2017-04-23] MEDS: ISOSORBIDE MONONITRATE ER 30 MG TABLET PO SCH (07:55)
[2017-04-23] MEDS ORDERED: TRAM50TA2 PO (10:31)
[2017-04-23] MEDS ORDERED: OMEP-110 PO (10:31)
[2017-04-23] MEDS ORDERED: ONDA4TAB10 PO (12:18)
== END 2017-04-23 12:40 | disposition home or self-care (01) | DRG 74 ==
LOC: ED 10:49 → EDIP 12:46 → 5SO 15:42 → DCLOUNGE 04-23 12:11
PROVIDERS: ADMIT Internal Medicine; ATTEND Internal Medicine
DX: E11.43 Type 2 diabetes mellitus with diabetic autonomic (poly)neuropathy (principal); I50.9 Heart failure, unspecified; I13.0 Hypertensive heart and chronic kidney disease with heart failure and stage 1 through stage 4 chronic kidney disease, or unspecified chronic kidney disease; E11.22 Type 2 diabetes mellitus with diabetic chronic kidney disease; E11.51 Type 2 diabetes mellitus with diabetic peripheral angiopathy without gangrene; I25.2 Old myocardial infarction; K31.84 Gastroparesis; R07.89 Other chest pain; K29.70 Gastritis, unspecified, without bleeding; E11.40 Type 2 diabetes mellitus with diabetic neuropathy, unspecified; N18.3 Chronic kidney disease, stage 3 (moderate); E78.00 Pure hypercholesterolemia, unspecified; F12.90 Cannabis use, unspecified, uncomplicated; F14.10 Cocaine abuse, uncomplicated; F31.9 Bipolar disorder, unspecified; F41.9 Anxiety disorder, unspecified; I25.10 Atherosclerotic heart disease of native coronary artery without angina pectoris; I25.5 Ischemic cardiomyopathy; I34.0 Nonrheumatic mitral (valve) insufficiency; K21.9 Gastro-esophageal reflux disease without esophagitis; K76.0 Fatty (change of) liver, not elsewhere classified; Z79.02 Long term (current) use of antithrombotics/antiplatelets; Z79.899 Other long term (current) drug therapy; Z79.82 Long term (current) use of aspirin; Z82.49 Family history of ischemic heart disease and other diseases of the circulatory system; Z87.11 Personal history of peptic ulcer disease; Z91.19 Patient's noncompliance with other medical treatment and regimen; Z95.1 Presence of aortocoronary bypass graft; Z95.5 Presence of coronary angioplasty implant and graft; Z95.810 Presence of automatic (implantable) cardiac defibrillator; Z83.3 Family history of diabetes mellitus; Z79.4 Long term (current) use of insulin
CPT/HCPCS: 36415; 71010; 74245; 76700; 80053; 80061; 80307; 82962; 83605; 83690; 83735; 83880; 84484; 85025; 85610; 85730; 93005; 96361; 96374; 96375; 96376; J1815; J2405; G0479; J2270; J7030; S0028

== ENCOUNTER 2017-05-05 19:42 | Inpatient (IN) | payer MEDICARE, MEDICAID ==
[~2017-05-05] VITALS: Ht 165.1 cm; Wt 78.7 kg
[~2017-05-05 19:42] MED LIST changes: +HYDR10TA4 PO; +LINA5TAB PO; +NITR0.6T4 PO; +OMEP-110 PO; +ONDA4TAB10 PO; +TRAM50TA2 PO
[2017-05-05] MEDS ORDERED: SODIUM CHLORIDE 0.9% 1,000ML IVBOLUS ONE (20:30)
[2017-05-05] MEDS ORDERED: ONDANSETRON 2MG/ML, 2ML IVPush ONE (20:30)
[2017-05-05] MEDS ORDERED: SODIUM CHLORIDE FLUSH 10ML SYR IVF ONE (20:30)
[2017-05-05] MEDS ORDERED: ASPIRIN 81 MG TABLET CHEW PO ONE (20:30)
[2017-05-05] MEDS ORDERED: ONDANSETRON 2MG/ML, 2ML ONE (20:35)
[2017-05-05] MEDS ORDERED: MORPHINE SULFATE 4 MG/ML, 1ML ONE ×2 (20:35→22:06)
[2017-05-05] MEDS ORDERED: ASPIRIN 81 MG TABLET CHEW ONE (20:36)
[2017-05-05] MEDS: MORPHINE SULFATE 4 MG/ML, 1ML IVPush PRN ×2 (20:38→22:09)
[2017-05-05 20:55] LABS: HEMATOCRIT 40.9 % (39.2-51.8); HEMOGLOBIN 13.9 g/dL (13.7-18.0); WHITE BLOOD COUNT 12.8 x10^3/uL (3.4-10)
[2017-05-05 21:08] LABS: ASPARTATE AMINO TRANSFERASE 14 U/L (15-37); BLOOD UREA NITROGEN 21 mg/dL (7-18)
[2017-05-05 21:13] LABS: IS PT STATUS REG ER OR PRE ER? YES
[2017-05-05] MEDS: INSULIN ASPART 100 UNITS/ML, PEN SQ-INSULIN SCH (23:00)
[2017-05-05] MEDS ORDERED: DOCUSATE 100 MG CAPSULE PO PRN (23:00)
[2017-05-05] MEDS ORDERED: LIDODERM 5% PATCH TD PRN (23:00)
[2017-05-05] MEDS ORDERED: ACETAMINOPHEN 325 MG TABLET PO PRN (23:00)
[2017-05-05] MEDS ORDERED: POLYETHYLENE GLYCOL 17 GM PACKET PO PRN (23:00)
[2017-05-05] MEDS ORDERED: FAMOTIDINE 20 MG TABLET ONE (23:14)
[2017-05-06] VITALS (10 sets, daily range): BP systolic 116–149; BP diastolic 78–100
[2017-05-06] MEDS: NS + 20MEQ KCL 1,000 ML IV SCH ×2 (00:12→12:44)
[2017-05-06] MEDS: hydrOXyzine 10MG TABLET PO SCH ×2 (00:12→20:20)
[2017-05-06] MEDS: GABAPENTIN 300 MG CAPSULE PO SCH ×3 (00:12→20:20)
[2017-05-06] MEDS: SIMVASTATIN 40 MG TABLET PO SCH ×2 (00:12→20:20)
[2017-05-06] MEDS: FAMOTIDINE 20 MG TABLET PO SCH ×3 (00:12→20:20)
[2017-05-06] MEDS: morphine SULFATE 10 MG/ML, 1ML IVPush PRN ×5 (01:53→21:47)
[2017-05-06 05:59] LABS: BLOOD UREA NITROGEN 20 mg/dL (7-18)
[2017-05-06 06:07] LABS: IS PT STATUS REG ER OR PRE ER? NO
[2017-05-06] MEDS: INSULIN ASPART 100 UNITS/ML, PEN SQ-INSULIN SCH ×4 (07:39→21:00)
[2017-05-06] MEDS ORDERED: ACAMPROSATE 333 MG TABLET.DR PO SCH (09:00)
[2017-05-06] MEDS ORDERED: TEMPLATE NON-FORMULARY MED. (Linagliptin** (Tradjenta**) 5 MG) PO SCH (09:00)
[2017-05-06] MEDS: CLOPIDOGREL 75 MG TABLET PO SCH (09:16)
[2017-05-06] MEDS: SENNA/DOCUSATE TABLET PO SCH (09:16)
[2017-05-06] MEDS: QUETIAPINE 100MG TABLET PO SCH (09:16)
[2017-05-06] MEDS: ASPIRIN 81 MG TABLET EC PO SCH (09:17)
[2017-05-06] MEDS: CITALOPRAM 20 MG TABLET PO SCH (09:17)
[2017-05-06] MEDS: NITROGLYCERIN 0.4 MG BOTTLE (25 TABS) SL PRN ×2 (09:27→09:34)
[2017-05-06] MEDS: PANTOPRAZOLE 40 MG IV IVPush SCH (17:27)
[2017-05-06] MEDS ORDERED: OMNIPAQUE 350 MG/ML, 100ML BOTTLE ONE (21:36)
[2017-05-06] MEDS: D5%-0.9% NACL+KCL 20MEQ 1,000 ML IV SCH (21:40)
[2017-05-06] MEDS ORDERED: MORPHINE SULFATE 4 MG/ML, 1ML ONE (21:45)
[2017-05-07 02:00] VITALS: BP 140/95
[2017-05-07] MEDS ORDERED: MORPHINE SULFATE 4 MG/ML, 1ML ONE (03:29)
[2017-05-07] MEDS: morphine SULFATE 10 MG/ML, 1ML IVPush PRN ×3 (03:41→19:20)
[2017-05-07 06:01] LABS: HEMATOCRIT 41.8 % (39.2-51.8); HEMOGLOBIN 14.1 g/dL (13.7-18.0)
[2017-05-07 06:11] LABS: BLOOD UREA NITROGEN 15 mg/dL (7-18)
[2017-05-07] MEDS: INSULIN ASPART 100 UNITS/ML, PEN SQ-INSULIN SCH ×3 (07:00→16:00)
[2017-05-07] MEDS: ASPIRIN 81 MG TABLET EC PO SCH (08:37)
[2017-05-07] MEDS: D5%-0.9% NACL+KCL 20MEQ 1,000 ML IV SCH ×2 (08:37→22:06)
[2017-05-07] MEDS: QUETIAPINE 100MG TABLET PO SCH (08:37)
[2017-05-07] MEDS: GABAPENTIN 300 MG CAPSULE PO SCH ×2 (08:37→20:15)
[2017-05-07] MEDS: FAMOTIDINE 20 MG TABLET PO SCH (08:37)
[2017-05-07] MEDS: CITALOPRAM 20 MG TABLET PO SCH (08:37)
[2017-05-07] MEDS: CLOPIDOGREL 75 MG TABLET PO SCH (08:37)
[2017-05-07] MEDS: OMEGA-3/FISH OIL CAPSULE PO SCH (08:38)
[2017-05-07] MEDS: PANTOPRAZOLE 40 MG IV IVPush SCH ×2 (08:38→20:15)
[2017-05-07] MEDS: SENNA/DOCUSATE TABLET PO SCH (08:39)
[2017-05-07 08:58] VITALS: BP 149/94
[2017-05-07] MEDS ORDERED: DEXTROSE 50%, 50ML SYRINGE IVPush PRN (12:30)
[2017-05-07] MEDS ORDERED: DEXTROSE 4 GM TAB.CHEW PO PRN (12:30)
[2017-05-07] MEDS ORDERED: MAALOX/HYOSCYAMINE/LIDOCAINE 45 ML BTL PO ONE (12:30)
[2017-05-07] MEDS ORDERED: GLUCAGON 1 MG IM PRN (12:30)
[2017-05-07 12:51] VITALS: BP 135/94
[2017-05-07 18:53] VITALS: BP 128/88
[2017-05-07] MEDS: SODIUM CHLORIDE FLUSH 10ML SYR IVF SCH (20:15)
[2017-05-07] MEDS: hydrOXyzine 10MG TABLET PO SCH (20:15)
[2017-05-07] MEDS: SIMVASTATIN 40 MG TABLET PO SCH (20:16)
[2017-05-07] MEDS ORDERED: FAMOTIDINE 20 MG TABLET PO SCH (21:00)
[2017-05-08] VITALS (8 sets, daily range): BP systolic 126–160; BP diastolic 82–120
[2017-05-08] MEDS: morphine SULFATE 10 MG/ML, 1ML IVPush PRN ×2 (05:46→20:13)
[2017-05-08] MEDS: QUETIAPINE 100MG TABLET PO SCH (07:19)
[2017-05-08] MEDS: SENNA/DOCUSATE TABLET PO SCH (07:19)
[2017-05-08] MEDS: CLOPIDOGREL 75 MG TABLET PO SCH (07:19)
[2017-05-08] MEDS: CITALOPRAM 20 MG TABLET PO SCH (07:19)
[2017-05-08] MEDS: GABAPENTIN 300 MG CAPSULE PO SCH ×2 (07:19→20:11)
[2017-05-08] MEDS: PANTOPRAZOLE 40 MG IV IVPush SCH (07:20)
[2017-05-08] MEDS: ASPIRIN 81 MG TABLET EC PO SCH (07:20)
[2017-05-08] MEDS: OMEGA-3/FISH OIL CAPSULE PO SCH (07:20)
[2017-05-08] MEDS: SODIUM CHLORIDE FLUSH 10ML SYR IVF SCH ×2 (07:20→19:58)
[2017-05-08] MEDS: D5%-0.9% NACL+KCL 20MEQ 1,000 ML IV SCH (09:40)
[2017-05-08 11:51] LABS: HEMOGLOBIN 13.9 g/dL (13.7-18.0); WHITE BLOOD COUNT 9.8 x10^3/uL (3.4-10)
[2017-05-08 12:06] LABS: BLOOD UREA NITROGEN 10 mg/dL (7-18)
[2017-05-08] MEDS: SUCRALFATE 1 GM/10 ML UDC PO SCH ×3 (12:27→22:22)
[2017-05-08] MEDS: PANTOPRAZOLE 20MG TABLET PO SCH (18:10)
[2017-05-08] MEDS: ONDANSETRON 2MG/ML, 2ML IVPush PRN (19:58)
[2017-05-08] MEDS: SIMVASTATIN 40 MG TABLET PO SCH (20:11)
[2017-05-08] MEDS: hydrOXyzine 10MG TABLET PO SCH (20:11)
[2017-05-09 01:30] VITALS: BP 130/88
[2017-05-09] MEDS: SUCRALFATE 1 GM/10 ML UDC PO SCH ×4 (06:21→19:56)
[2017-05-09] MEDS: PANTOPRAZOLE 20MG TABLET PO SCH (06:24)
[2017-05-09 06:28] VITALS: BP 138/92
[2017-05-09] MEDS: OXYcodone IR 5MG TABLET PO PRN ×2 (06:31→17:47)
[2017-05-09] MEDS: CLOPIDOGREL 75 MG TABLET PO SCH (08:45)
[2017-05-09] MEDS: ASPIRIN 81 MG TABLET EC PO SCH (08:45)
[2017-05-09] MEDS: GABAPENTIN 300 MG CAPSULE PO SCH ×2 (08:45→19:56)
[2017-05-09] MEDS: SODIUM CHLORIDE FLUSH 10ML SYR IVF SCH ×2 (08:45→19:56)
[2017-05-09] MEDS: QUETIAPINE 100MG TABLET PO SCH (08:45)
[2017-05-09] MEDS: CITALOPRAM 20 MG TABLET PO SCH (08:45)
[2017-05-09] MEDS: OMEGA-3/FISH OIL CAPSULE PO SCH (08:45)
[2017-05-09] MEDS: SENNA/DOCUSATE TABLET PO SCH (08:45)
[2017-05-09 09:01] VITALS: BP 144/99
[2017-05-09] MEDS: ONDANSETRON 2MG/ML, 2ML IVPush PRN (12:44)
[2017-05-09] MEDS: MAALOX/HYOSCYAMINE/LIDOCAINE 45 ML BTL PO PRN ×2 (13:36→17:47)
[2017-05-09 13:55] VITALS: BP 169/98
[2017-05-09] MEDS: hydrOXyzine 10MG TABLET PO SCH (19:56)
[2017-05-09] MEDS: SIMVASTATIN 40 MG TABLET PO SCH (19:57)
[2017-05-09 20:04] VITALS: BP 106/72
[2017-05-09] MEDS: FAMOTIDINE 20 MG TABLET PO SCH (21:00)
[2017-05-10 02:55] VITALS: BP 107/78
[2017-05-10] MEDS: OXYcodone IR 5MG TABLET PO PRN (05:05)
[2017-05-10 05:29] LABS: ASPARTATE AMINO TRANSFERASE 9 U/L (15-37); BLOOD UREA NITROGEN 23 mg/dL (7-18)
[2017-05-10 08:04] VITALS: BP 112/90
[2017-05-10] MEDS ORDERED: POLY17PO5 PO (08:20)
[2017-05-10] MEDS ORDERED: Maalox/Hyoscyamine/Lidocaine PO (08:20)
[2017-05-10] MEDS ORDERED: SENN1TAB7 PO (08:20)
[2017-05-10] MEDS ORDERED: FAMO20TA7 PO (08:20)
[2017-05-10] MEDS ORDERED: SUCR1ORA5 PO (08:20)
[2017-05-10] MEDS ORDERED: LISI5TAB7 PO (08:20)
[2017-05-10] MEDS ORDERED: OMEG1CAP6 PO (08:20)
[2017-05-10] MEDS: OMEGA-3/FISH OIL CAPSULE PO SCH (08:33)
[2017-05-10] MEDS: SODIUM CHLORIDE FLUSH 10ML SYR IVF SCH (08:33)
[2017-05-10] MEDS: SUCRALFATE 1 GM/10 ML UDC PO SCH (08:33)
[2017-05-10] MEDS: QUETIAPINE 100MG TABLET PO SCH (08:33)
[2017-05-10] MEDS: SENNA/DOCUSATE TABLET PO SCH (08:33)
[2017-05-10] MEDS: CITALOPRAM 20 MG TABLET PO SCH (08:34)
[2017-05-10] MEDS: GABAPENTIN 300 MG CAPSULE PO SCH (08:34)
[2017-05-10] MEDS: CLOPIDOGREL 75 MG TABLET PO SCH (08:34)
[2017-05-10] MEDS: FAMOTIDINE 20 MG TABLET PO SCH (08:34)
[2017-05-10] MEDS: ASPIRIN 81 MG TABLET EC PO SCH (08:34)
[2017-05-10] MEDS ORDERED: LISINOPRIL 5 MG TABLET PO SCH (09:00)
[2017-05-13] MEDS ORDERED: HYDR1KIT TD (16:32)
[2017-05-13] MEDS ORDERED: ACET-1600 PO (16:34)
[2017-05-14] MEDS ORDERED: LINA5TAB PO (15:54)
== END 2017-05-10 12:13 | disposition home or self-care (01) | DRG 391 ==
LOC: ED 20:13 → SUATTDRO 22:29 → EDIP 22:33 → 5SO 05-06 01:15
PROVIDERS: ADMIT Family Medicine; ATTEND Family Medicine
DX: K21.9 Gastro-esophageal reflux disease without esophagitis (principal); K85.90 Acute pancreatitis without necrosis or infection, unspecified; E11.40 Type 2 diabetes mellitus with diabetic neuropathy, unspecified; I50.42 Chronic combined systolic (congestive) and diastolic (congestive) heart failure; I11.0 Hypertensive heart disease with heart failure; F14.90 Cocaine use, unspecified, uncomplicated; E78.00 Pure hypercholesterolemia, unspecified; E78.5 Hyperlipidemia, unspecified; F32.9 Major depressive disorder, single episode, unspecified; I25.10 Atherosclerotic heart disease of native coronary artery without angina pectoris; I25.5 Ischemic cardiomyopathy; K59.00 Constipation, unspecified; R13.10 Dysphagia, unspecified; I25.2 Old myocardial infarction; Z79.02 Long term (current) use of antithrombotics/antiplatelets; Z80.9 Family history of malignant neoplasm, unspecified; Z82.49 Family history of ischemic heart disease and other diseases of the circulatory system; Z83.3 Family history of diabetes mellitus; Z91.5 Personal history of self-harm; Z95.1 Presence of aortocoronary bypass graft; Z95.5 Presence of coronary angioplasty implant and graft; Z95.810 Presence of automatic (implantable) cardiac defibrillator
CPT/HCPCS: 36415; 71010; 74177; 74220; 80048; 80053; 80061; 81003; 82947; 82962; 83605; 83690; 84484; 85025; 86677; 93005; 96361; 96374; 96375; 96376; J1815; J2405; J3480; Q9967; C9113; J2270; J7030

== ENCOUNTER 2017-06-02 12:39 | Inpatient (IN) | payer MEDICARE, MEDICAID ==
[~2017-06-02] VITALS: Ht 165.1 cm; Wt 81.7 kg
[~2017-06-02 12:39] MED LIST changes: +FAMO20TA7 PO; +HYDR1KIT TD; +Maalox/Hyoscyamine/Lidocaine PO; -NAPR500T3 PO; +NAPR500T4 PO; +POLY17PO5 PO; +QUET100T4 PO; +SENN1TAB7 PO; +SUCR1ORA5 PO
[2017-06-02 13:38] LABS: PATH.CAST-FLAG NOT PRESENT; SPERM-FLAG NOT PRESENT; SRC-FLAG NOT PRESENT; XTAL-FLAG NOT PRESENT; YLC-FLAG NOT PRESENT
[2017-06-02 14:13] LABS: HEMATOCRIT 45.7 % (39.2-51.8); HEMOGLOBIN 15.1 g/dL (13.7-18.0); WHITE BLOOD COUNT 8.4 x10^3/uL (3.4-10)
[2017-06-02 14:23] LABS: BLOOD UREA NITROGEN 14 mg/dL (7-18)
[2017-06-02 14:30] LABS: IS PT STATUS REG ER OR PRE ER? YES
[2017-06-02] MEDS ORDERED: MAALOX/HYOSCYAMINE/LIDOCAINE 45 ML BTL PO ONE ×2 (15:30→20:30)
[2017-06-02] MEDS ORDERED: FAMOTIDINE 20 MG/2 ML ONE (15:38)
[2017-06-02] MEDS ORDERED: ONDANSETRON 2MG/ML, 2ML ONE (15:38)
[2017-06-02] MEDS ORDERED: MAALOX/HYOSCYAMINE/LIDOCAINE 45 ML BTL ONE (15:40)
[2017-06-02] MEDS ORDERED: METOPROLOL 1 MG/ML, 5ML ONE (16:18)
[2017-06-02] MEDS ORDERED: KETOROLAC 30 MG/1 ML ONE (16:18)
[2017-06-02] MEDS ORDERED: KETOROLAC 30 MG/1 ML IVPush SCH (16:30)
[2017-06-02] MEDS ORDERED: METOPROLOL 1 MG/ML, 5ML IVPush PRN ×2 (16:30)
[2017-06-02] MEDS ORDERED: SODIUM CHLORIDE 0.9% 1,000 ML IV SCH (16:49)
[2017-06-02] MEDS ORDERED: ACETAMINOPHEN 325 MG TABLET PO PRN (17:00)
[2017-06-02] MEDS ORDERED: GLUCAGON 1 MG IM PRN (17:00)
[2017-06-02] MEDS ORDERED: DEXTROSE 4 GM TAB.CHEW PO PRN (17:00)
[2017-06-02] MEDS ORDERED: POLYETHYLENE GLYCOL 17 GM PACKET PO PRN ×2 (17:00)
[2017-06-02] MEDS ORDERED: DEXTROSE 50%, 50ML SYRINGE IVPush PRN (17:00)
[2017-06-02] MEDS ORDERED: ACETAMINOPHEN 500 MG TABLET PO PRN (17:00)
[2017-06-02] MEDS ORDERED: BISACODYL 10 MG SUPP PR PRN (17:00)
[2017-06-02] MEDS ORDERED: OMNIPAQUE 350 MG/ML, 100ML BOTTLE ONE (17:07)
[2017-06-02 17:27] LABS: IS PT STATUS REG ER OR PRE ER? YES
[2017-06-02] MEDS ORDERED: ENOXAPARIN 40 MG/0.4 ML ONE (17:38)
[2017-06-02] MEDS: ENOXAPARIN 40 MG/0.4 ML SQ SCH (17:39)
[2017-06-02] MEDS ORDERED: POTASSIUM CHLORIDE 20 MEQ TAB.ER.PRT PO ONE (18:00)
[2017-06-02] MEDS ORDERED: LABETALOL 5MG/ML, 20ML IVPush PRN (18:00)
[2017-06-02] MEDS ORDERED: POTASSIUM PHOSPHATE 44 MEQ in SODIUM CHLORIDE 0.9% 500 ML IV ONE (18:13)
[2017-06-02] MEDS: morphine SULFATE 10 MG/ML, 1ML IVPush PRN (18:22)
[2017-06-02 18:23] VITALS: BP 152/111
[2017-06-02] MEDS ORDERED: ONDANSETRON 2MG/ML, 2ML IVPush PRN (19:00)
[2017-06-02] MEDS: NS + 20MEQ KCL 1,000 ML IV SCH (19:22)
[2017-06-02 20:01] VITALS: BP 183/96
[2017-06-02] MEDS: SODIUM CHLORIDE FLUSH 10ML SYR IVF SCH (20:03)
[2017-06-02] MEDS: NITROGLYCERIN 0.4 MG BOTTLE (25 TABS) SL PRN ×2 (20:03→20:10)
[2017-06-02] MEDS: GABAPENTIN 300 MG CAPSULE PO SCH (20:04)
[2017-06-02] MEDS: QUETIAPINE 100MG TABLET PO SCH (20:04)
[2017-06-02] MEDS: INSULIN ASPART 100 UNITS/ML, PEN SQ-INSULIN SCH (20:05)
[2017-06-02 20:09] VITALS: BP 164/109
[2017-06-02] MEDS ORDERED: DOCUSATE 100 MG CAPSULE PO PRN (21:00)
[2017-06-02] MEDS: SIMVASTATIN 40 MG TABLET PO SCH (21:00)
[2017-06-02 22:35] LABS: IS PT STATUS REG ER OR PRE ER? NO
[2017-06-03 00:59] VITALS: BP 98/74
[2017-06-03 05:41] LABS: HEMATOCRIT 42.6 % (39.2-51.8); HEMOGLOBIN 14.1 g/dL (13.7-18.0); WHITE BLOOD COUNT 6.9 x10^3/uL (3.4-10)
[2017-06-03 06:04] LABS: ASPARTATE AMINO TRANSFERASE 11 U/L (15-37); BLOOD UREA NITROGEN 19 mg/dL (7-18)
[2017-06-03] MEDS: INSULIN ASPART 100 UNITS/ML, PEN SQ-INSULIN SCH ×4 (07:00→20:38)
[2017-06-03 07:29] VITALS: BP 106/70
[2017-06-03] MEDS: morphine SULFATE 10 MG/ML, 1ML IVPush PRN ×2 (08:26→20:38)
[2017-06-03] MEDS: LISINOPRIL 5 MG TABLET PO SCH (08:26)
[2017-06-03] MEDS: CITALOPRAM 20 MG TABLET PO SCH (08:26)
[2017-06-03] MEDS: CLOPIDOGREL 75 MG TABLET PO SCH (08:26)
[2017-06-03] MEDS: GABAPENTIN 300 MG CAPSULE PO SCH ×3 (08:26→20:37)
[2017-06-03] MEDS: ASPIRIN 81 MG TABLET EC PO SCH (08:26)
[2017-06-03] MEDS: OMEGA-3/FISH OIL CAPSULE PO SCH (08:26)
[2017-06-03] MEDS: SENNA/DOCUSATE TABLET PO SCH (08:26)
[2017-06-03] MEDS: SODIUM CHLORIDE FLUSH 10ML SYR IVF SCH ×2 (08:27→20:37)
[2017-06-03 11:32] VITALS: BP 120/85
[2017-06-03] MEDS: METOPROLOL SUCCINATE 25 MG TAB.ER.24H PO SCH (11:35)
[2017-06-03 13:55] VITALS: BP 103/75
[2017-06-03] MEDS ORDERED: FENTANYL PF 100 MCG/2ML ONE (15:35)
[2017-06-03] MEDS ORDERED: BIVALIRUDIN 250 MG ONE (15:35)
[2017-06-03] MEDS ORDERED: MIDAZOLAM 1 MG/ML, 5ML ONE (15:35)
[2017-06-03] MEDS ORDERED: HEPARIN 1,000 UNITS/ML, 10ML ONE (15:35)
[2017-06-03] MEDS ORDERED: LIDOCAINE 2%, 20ML ONE (15:35)
[2017-06-03] MEDS ORDERED: VERAPAMIL 2.5 MG/ML, 2ML ONE (15:35)
[2017-06-03] MEDS: NS + 20MEQ KCL 1,000 ML IV SCH (16:00)
[2017-06-03] MEDS: SODIUM CHLORIDE 0.9% 1,000 ML IV SCH ×2 (16:51→19:43)
[2017-06-03] MEDS: ENOXAPARIN 40 MG/0.4 ML SQ SCH (17:00)
[2017-06-03 19:07] VITALS: BP 102/70
[2017-06-03] MEDS: QUETIAPINE 100MG TABLET PO SCH (20:38)
[2017-06-03] MEDS: SIMVASTATIN 40 MG TABLET PO SCH (20:38)
[2017-06-04 01:05] VITALS: BP 96/74
[2017-06-04] MEDS: NS + 20MEQ KCL 1,000 ML IV SCH (04:07)
[2017-06-04 05:33] LABS: BLOOD UREA NITROGEN 22 mg/dL (7-18)
[2017-06-04] MEDS: morphine SULFATE 10 MG/ML, 1ML IVPush PRN (05:47)
[2017-06-04] MEDS: INSULIN ASPART 100 UNITS/ML, PEN SQ-INSULIN SCH ×2 (07:00→11:00)
[2017-06-04 07:42] VITALS: BP 110/75
[2017-06-04] MEDS: SODIUM CHLORIDE 0.9% 1,000 ML IV SCH (08:19)
[2017-06-04] MEDS: LISINOPRIL 5 MG TABLET PO SCH (08:21)
[2017-06-04] MEDS: GABAPENTIN 300 MG CAPSULE PO SCH (08:22)
[2017-06-04] MEDS: CLOPIDOGREL 75 MG TABLET PO SCH (08:22)
[2017-06-04] MEDS: SENNA/DOCUSATE TABLET PO SCH (08:22)
[2017-06-04] MEDS: METOPROLOL SUCCINATE 25 MG TAB.ER.24H PO SCH (08:22)
[2017-06-04] MEDS: ASPIRIN 81 MG TABLET EC PO SCH (08:22)
[2017-06-04] MEDS: SODIUM CHLORIDE FLUSH 10ML SYR IVF SCH (08:23)
[2017-06-04] MEDS: CITALOPRAM 20 MG TABLET PO SCH (08:23)
[2017-06-04] MEDS: OMEGA-3/FISH OIL CAPSULE PO SCH (08:23)
[2017-06-04] MEDS ORDERED: TRAM50TA2 PO (11:15)
[2017-06-04] MEDS ORDERED: METO25TA91 PO (11:15)
== END 2017-06-04 14:01 | disposition home or self-care (01) | DRG 287 ==
LOC: ED 13:52 → EDIP 15:45 → 5SO 17:45 → DCLOUNGE 06-04 13:50
PROVIDERS: ADMIT Family Medicine; ATTEND Family Medicine
PROC: 4A023N7 Measurement of Cardiac Sampling and Pressure, Left Heart, Percutaneous Approach (ICD-10-PCS; principal; 2017-06-02)
PROC: B2111ZZ Fluoroscopy of Multiple Coronary Arteries using Low Osmolar Contrast (ICD-10-PCS; 2017-06-02)
PROC: B2151ZZ Fluoroscopy of Left Heart using Low Osmolar Contrast (ICD-10-PCS; 2017-06-02)
PROC: B2131ZZ Fluoroscopy of Multiple Coronary Artery Bypass Grafts using Low Osmolar Contrast (ICD-10-PCS; 2017-06-02)
PROC: B2121ZZ Fluoroscopy of Single Coronary Artery Bypass Graft using Low Osmolar Contrast (ICD-10-PCS; 2017-06-02)
PROC: B21F1ZZ Fluoroscopy of Other Bypass Graft using Low Osmolar Contrast (ICD-10-PCS; 2017-06-02)
DX: I25.110 Atherosclerotic heart disease of native coronary artery with unstable angina pectoris (principal); I25.82 Chronic total occlusion of coronary artery; I82.B12 Acute embolism and thrombosis of left subclavian vein; I11.0 Hypertensive heart disease with heart failure; I50.9 Heart failure, unspecified; E11.9 Type 2 diabetes mellitus without complications; F31.9 Bipolar disorder, unspecified; I25.5 Ischemic cardiomyopathy; E78.5 Hyperlipidemia, unspecified; E87.6 Hypokalemia; F12.90 Cannabis use, unspecified, uncomplicated; G89.29 Other chronic pain; I16.0 Hypertensive urgency; K21.9 Gastro-esophageal reflux disease without esophagitis; K80.20 Calculus of gallbladder without cholecystitis without obstruction; Z87.891 Personal history of nicotine dependence; Z91.19 Patient's noncompliance with other medical treatment and regimen; Z95.5 Presence of coronary angioplasty implant and graft; I25.2 Old myocardial infarction; Z82.3 Family history of stroke; Z95.810 Presence of automatic (implantable) cardiac defibrillator
CPT/HCPCS: 36415; 71010; 71275; 80048; 80053; 80061; 81001; 82040; 82962; 83690; 83735; 84100; 84443; 84484; 85025; 93005; 93459; 96374; 96375; 99156; 99157; C1760; C1769; C1894; J0583; J1644; J1650; J1815; J1885; J2250; J2405; J3010; J3480; J3490; Q9967; J2270; J7030; J7040

== ENCOUNTER 2017-06-08 07:43 | Emergency (ER) | payer MEDICARE, MEDICAID ==
[~2017-06-08] VITALS: Ht 165.1 cm; Wt 82.0 kg
[~2017-06-08 07:43] MED LIST changes: +METO25TA91 PO
[2017-06-08 08:26] LABS: IS PT STATUS REG ER OR PRE ER? YES
[2017-06-08] MEDS ORDERED: morphine SULFATE 10 MG/ML, 1ML ONE (10:21)
[2017-06-08] MEDS ORDERED: ONDANSETRON 2MG/ML, 2ML ONE (10:24)
[2017-06-08] MEDS ORDERED: MORPHINE SULFATE 4 MG/ML, 1ML IVPush PRN (10:30)
[2017-06-08] MEDS ORDERED: morphine SULFATE 10 MG/ML, 1ML IVPush PRN (10:30)
[2017-06-08] MEDS ORDERED: ONDANSETRON 2MG/ML, 2ML IVPush ONE (10:30)
[2017-06-08 10:55] LABS: IS PT STATUS REG ER OR PRE ER? YES
[2017-06-08 11:47] VITALS: BP 163/94
== END 2017-06-08 11:52 | disposition home or self-care (01) ==
LOC: ED 07:56
DX: R07.89 Other chest pain (principal); I11.0 Hypertensive heart disease with heart failure; I50.9 Heart failure, unspecified; E11.9 Type 2 diabetes mellitus without complications; I25.10 Atherosclerotic heart disease of native coronary artery without angina pectoris
CPT/HCPCS: 36415; 84484; 93005; 96374; 96375; 99285; J2405

== ENCOUNTER 2017-07-22 05:12 | Observation (INO) | payer MEDICARE, MEDICAID ==
[~2017-07-22] VITALS: Ht 165.1 cm; Wt 77.8 kg
[2017-07-22] MEDS ORDERED: ONDANSETRON 2MG/ML, 2ML ONE (05:38)
[2017-07-22] MEDS ORDERED: MORPHINE SULFATE 4 MG/ML, 1ML ONE ×2 (05:38→07:00)
[2017-07-22] MEDS: MORPHINE SULFATE 4 MG/ML, 1ML IVPush PRN ×5 (05:42→17:29)
[2017-07-22 05:59] LABS: BASOPHILS # (AUTO) 0.04 x10^3/uL (0-0.1); BASOPHILS % (AUTO) 0 % (0-1); EOSINOPHILS # (AUTO) 0.46 x10^3/uL (0-0.4); EOSINOPHILS % (AUTO) 4 % (1-7); LYMPHOCYTES # (AUTO) 1.65 x10^3/uL (1-3.4); LYMPHOCYTES % (AUTO) 14 % (22-44); MD NO; MEAN CORPUSCULAR HEMOGLOBIN 29.9 pg (27.5-34.5); MEAN CORPUSCULAR HGB CONC 32.9 g/dL (33.2-36.2); MEAN CORPUSCULAR VOLUME 90.8 fL (81-97); MEAN PLATELET VOLUME 8.3 fL (7.4-10.4); MONOCYTES # (AUTO) 0.48 x10^3/uL (0.2-0.8); MONOCYTES % (AUTO) 4 % (2-9); NEUTROPHILS # (AUTO) 8.94 x10^3/uL (1.8-6.8); NEUTROPHILS % (AUTO) 77 % (42-75); PLATELET COUNT 220 x10^3/uL (130-400); RED BLOOD COUNT 4.88 x10^6/uL (4.38-5.82); RED CELL DISTRIBUTION WIDTH 15.2 % (9.4-14.8)
[2017-07-22] MEDS ORDERED: ONDANSETRON 2MG/ML, 2ML IVPush ONE (06:00)
[2017-07-22] MEDS ORDERED: SODIUM CHLORIDE FLUSH 10ML SYR IVF ONE (06:00)
[2017-07-22 06:12] LABS: ALANINE AMINOTRANSFERASE 15 U/L (12-78); ALBUMIN 3.6 g/dL (3.4-5.0); ANION GAP 8 mmol/L (5-15); CALCIUM 8.3 mg/dL (8.5-10.1); CHLORIDE 108 mmol/L (98-107); CREATININE 0.83 mg/dL (0.7-1.3)
[2017-07-22 06:15] LABS: ALKALINE PHOSPHATASE 76 U/L (45-117); BILIRUBIN,TOTAL 0.6 mg/dL (0.2-1.0); TOTAL PROTEIN 7.4 g/dL (6.4-8.2); TROPONIN I < 0.015 ng/mL (0.000-0.045)
[2017-07-22] MEDS ORDERED: ONDANSETRON 2MG/ML, 2ML IVPush PRN (07:30)
[2017-07-22] MEDS ORDERED: POLYETHYLENE GLYCOL 17 GM PACKET PO PRN (07:30)
[2017-07-22] MEDS ORDERED: ACETAMINOPHEN 325 MG TABLET PO PRN (07:30)
[2017-07-22] MEDS ORDERED: LABETALOL 5MG/ML, 20ML IVPush PRN (07:30)
[2017-07-22] MEDS ORDERED: SODIUM CHLORIDE FLUSH 10ML SYR IVF PRN (07:30)
[2017-07-22] MEDS: (Linagliptin** (Tradjenta**) 5 MG) PO SCH (09:00)
[2017-07-22] MEDS: (Escitalopram Oxalate** 20 MG) PO SCH (09:00)
[2017-07-22] MEDS: SODIUM CHLORIDE FLUSH 10ML SYR IVF SCH ×2 (10:08→20:38)
[2017-07-22] MEDS: ENOXAPARIN 40 MG/0.4 ML SQ SCH (10:08)
[2017-07-22] MEDS: GABAPENTIN 300 MG CAPSULE PO SCH ×3 (10:10→20:38)
[2017-07-22] MEDS: CLOPIDOGREL 75 MG TABLET PO SCH (10:10)
[2017-07-22] MEDS: ASPIRIN 81 MG TABLET EC PO SCH (10:10)
[2017-07-22] MEDS: OMEGA-3/FISH OIL CAPSULE PO SCH (10:11)
[2017-07-22] MEDS: LISINOPRIL 5 MG TABLET PO SCH (10:12)
[2017-07-22] MEDS: SENNA/DOCUSATE TABLET PO SCH (10:12)
[2017-07-22 10:31] VITALS: BP 142/83
[2017-07-22] MEDS: NITROGLYCERIN 0.4 MG BOTTLE (25 TABS) SL PRN (11:03)
[2017-07-22 11:04] VITALS: BP_SYST 113; BP_SYST 150; BP_SYST 164; BP_SYST 168; BP_DIAS 78; BP_DIAS 87; BP_DIAS 94; BP_DIAS 95
[2017-07-22 11:46] LABS: TROPONIN I < 0.015 ng/mL (0.000-0.045)
[2017-07-22] MEDS ORDERED: morphine SULFATE 10 MG/ML, 1ML ONE (12:07)
[2017-07-22 14:07] VITALS: BP 141/80
[2017-07-22 17:21] LABS: TROPONIN I < 0.015 ng/mL (0.000-0.045)
[2017-07-22 19:18] VITALS: BP 149/78
[2017-07-22] MEDS: RANOLAZINE 500 MG TAB.ER.12H PO SCH (20:38)
[2017-07-22] MEDS ORDERED: QUETIAPINE 100MG TABLET PO SCH (21:00)
[2017-07-22] MEDS ORDERED: SIMVASTATIN 40 MG TABLET PO SCH (21:00)
[2017-07-23 03:46] VITALS: BP 131/78
[2017-07-23 05:44] VITALS: BP 148/88
[2017-07-23] MEDS ORDERED: ASPIRIN 325 MG TABLET EC PO SCH (06:00)
[2017-07-23] MEDS ORDERED: METOPROLOL SUCCINATE 25 MG TAB.ER.24H PO SCH (06:00)
[2017-07-23 06:04] LABS: BASOPHILS # (AUTO) 0.04 x10^3/uL (0-0.1); BASOPHILS % (AUTO) 1 % (0-1); EOSINOPHILS # (AUTO) 0.49 x10^3/uL (0-0.4); EOSINOPHILS % (AUTO) 5 % (1-7); LYMPHOCYTES # (AUTO) 2.51 x10^3/uL (1-3.4); LYMPHOCYTES % (AUTO) 27 % (22-44); MD NO; MEAN CORPUSCULAR HEMOGLOBIN 29.9 pg (27.5-34.5); MEAN CORPUSCULAR HGB CONC 32.9 g/dL (33.2-36.2); MEAN CORPUSCULAR VOLUME 90.9 fL (81-97); MEAN PLATELET VOLUME 8.5 fL (7.4-10.4); MONOCYTES # (AUTO) 0.66 x10^3/uL (0.2-0.8); MONOCYTES % (AUTO) 7 % (2-9); NEUTROPHILS # (AUTO) 5.66 x10^3/uL (1.8-6.8); NEUTROPHILS % (AUTO) 61 % (42-75); PLATELET COUNT 173 x10^3/uL (130-400); RED BLOOD COUNT 4.32 x10^6/uL (4.38-5.82); RED CELL DISTRIBUTION WIDTH 14.8 % (9.4-14.8)
[2017-07-23 06:05] LABS: ANION GAP 6 mmol/L (5-15); CALCIUM 8.4 mg/dL (8.5-10.1); CHLORIDE 107 mmol/L (98-107)
[2017-07-23 06:07] LABS: CREATININE 1.24 mg/dL (0.7-1.3)
[2017-07-23] MEDS: CLOPIDOGREL 75 MG TABLET PO SCH (07:58)
[2017-07-23] MEDS: ASPIRIN 81 MG TABLET EC PO SCH (07:58)
[2017-07-23] MEDS: GABAPENTIN 300 MG CAPSULE PO SCH (07:58)
[2017-07-23] MEDS: LISINOPRIL 5 MG TABLET PO SCH (07:58)
[2017-07-23] MEDS: ENOXAPARIN 40 MG/0.4 ML SQ SCH (07:58)
[2017-07-23] MEDS: SENNA/DOCUSATE TABLET PO SCH (07:59)
[2017-07-23] MEDS: OMEGA-3/FISH OIL CAPSULE PO SCH (07:59)
[2017-07-23] MEDS: SODIUM CHLORIDE FLUSH 10ML SYR IVF SCH (08:01)
[2017-07-23] MEDS: (Escitalopram Oxalate** 20 MG) PO SCH (08:02)
[2017-07-23] MEDS: (Linagliptin** (Tradjenta**) 5 MG) PO SCH (08:02)
[2017-07-23] MEDS: RANOLAZINE 500 MG TAB.ER.12H PO SCH (08:02)
[2017-07-23 08:03] VITALS: BP 148/72
[2017-07-23] MEDS ORDERED: RANO500T2 PO (13:03)
== END 2017-07-23 14:30 | disposition home or self-care (01) ==
LOC: ED 05:58 → EDIP 07:02 → INTOOBSV 07:02 → 5SO 08:27
PROVIDERS: ADMIT Hospitalist; ATTEND Hospitalist
DX: R07.89 Other chest pain (principal); D72.829 Elevated white blood cell count, unspecified; R19.7 Diarrhea, unspecified; I13.0 Hypertensive heart and chronic kidney disease with heart failure and stage 1 through stage 4 chronic kidney disease, or unspecified chronic kidney disease; E11.22 Type 2 diabetes mellitus with diabetic chronic kidney disease; E11.65 Type 2 diabetes mellitus with hyperglycemia; I50.42 Chronic combined systolic (congestive) and diastolic (congestive) heart failure; N18.3 Chronic kidney disease, stage 3 (moderate); E78.5 Hyperlipidemia, unspecified; F12.90 Cannabis use, unspecified, uncomplicated; F31.9 Bipolar disorder, unspecified; F41.9 Anxiety disorder, unspecified; G89.29 Other chronic pain; I21.09 ST elevation (STEMI) myocardial infarction involving other coronary artery of anterior wall; I25.110 Atherosclerotic heart disease of native coronary artery with unstable angina pectoris; I25.5 Ischemic cardiomyopathy; I25.82 Chronic total occlusion of coronary artery; I82.B12 Acute embolism and thrombosis of left subclavian vein; K21.9 Gastro-esophageal reflux disease without esophagitis; Z79.84 Long term (current) use of oral hypoglycemic drugs; Z82.49 Family history of ischemic heart disease and other diseases of the circulatory system; Z83.3 Family history of diabetes mellitus; Z87.891 Personal history of nicotine dependence; Z95.1 Presence of aortocoronary bypass graft; Z95.5 Presence of coronary angioplasty implant and graft; Z95.810 Presence of automatic (implantable) cardiac defibrillator
CPT/HCPCS: 36415; 71010; 80048; 80053; 84484; 85025; 93005; 96372; 96374; 96375; 96376; 99285; G0378; J1650; J2405

== ENCOUNTER 2017-10-14 19:04 | Emergency (ER) | payer MEDICARE, MEDICAID ==
[~2017-10-14] VITALS: Ht 165.1 cm; Wt 82.0 kg
[~2017-10-14 19:04] MED LIST changes: +ATOR40TA78 PO; +LISI-167 PO; +METO200T47 PO; +NAPR-685 PO; -NAPR500T4 PO; +RANO500T2 PO
[2017-10-14] MEDS ORDERED: SODIUM CHLORIDE FLUSH 10ML SYR IVF ONE (19:30)
[2017-10-14] MEDS ORDERED: MORPHINE SULFATE 4 MG/ML, 1ML ONE ×2 (19:37→20:43)
[2017-10-14] MEDS: MORPHINE SULFATE 4 MG/ML, 1ML IVPush PRN ×2 (19:42→20:45)
[2017-10-14 19:58] LABS: BASOPHILS # (AUTO) 0.04 x10^3/uL (0-0.1); BASOPHILS % (AUTO) 0 % (0-1); EOSINOPHILS # (AUTO) 0.43 x10^3/uL (0-0.4); EOSINOPHILS % (AUTO) 4 % (1-7); LYMPHOCYTES # (AUTO) 2.35 x10^3/uL (1-3.4); LYMPHOCYTES % (AUTO) 19 % (22-44); MD NO; MEAN CORPUSCULAR HGB CONC 33.2 g/dL (33.2-36.2); MEAN CORPUSCULAR VOLUME 93.4 fL (81-97); MEAN PLATELET VOLUME 8.1 fL (7.4-10.4); MONOCYTES # (AUTO) 1.01 x10^3/uL (0.2-0.8); MONOCYTES % (AUTO) 8 % (2-9); NEUTROPHILS # (AUTO) 8.44 x10^3/uL (1.8-6.8); NEUTROPHILS % (AUTO) 69 % (42-75); PLATELET COUNT 251 x10^3/uL (130-400); RED BLOOD COUNT 4.58 x10^6/uL (4.38-5.82); RED CELL DISTRIBUTION WIDTH 16.2 % (9.4-14.8)
[2017-10-14 20:09] LABS: ALANINE AMINOTRANSFERASE 16 U/L (12-78); ALBUMIN 3.7 g/dL (3.4-5.0); ANION GAP 7 mmol/L (5-15); CALCIUM 8.7 mg/dL (8.5-10.1); CHLORIDE 108 mmol/L (98-107); CREATININE 0.96 mg/dL (0.7-1.3)
[2017-10-14 20:13] LABS: ALKALINE PHOSPHATASE 79 U/L (45-117); BILIRUBIN,TOTAL 0.3 mg/dL (0.2-1.0); TROPONIN I < 0.015 ng/mL (0.000-0.045)
[2017-10-14 21:34] VITALS: BP 186/93
== END 2017-10-14 21:36 | disposition home or self-care (01) ==
LOC: ED 21:05
DX: I20.0 Unstable angina (principal); I10 Essential (primary) hypertension; E78.5 Hyperlipidemia, unspecified; E11.9 Type 2 diabetes mellitus without complications; Z79.82 Long term (current) use of aspirin; Z86.718 Personal history of other venous thrombosis and embolism; Z95.810 Presence of automatic (implantable) cardiac defibrillator
CPT/HCPCS: 36415; 71045; 80053; 84484; 85025; 93005; 96374; 96376

== ENCOUNTER 2017-10-23 11:20 | Emergency (ER) | payer MEDICARE, MEDICAID ==
[~2017-10-23] VITALS: Ht 165.1 cm; Wt 83.0 kg
[2017-10-23] MEDS ORDERED: NITR0.4T28 SL (11:45)
[2017-10-23] MEDS ORDERED: NITROGLYCERIN OINT 2%, 1GM TP ONE ×2 (12:00→12:30)
[2017-10-23] MEDS ORDERED: morphine SULFATE 10 MG/ML, 1ML IVPush ONE (12:00)
[2017-10-23 12:14] LABS: BASOPHILS # (AUTO) 0.04 x10^3/uL (0-0.1); BASOPHILS % (AUTO) 0 % (0-1); EOSINOPHILS # (AUTO) 0.21 x10^3/uL (0-0.4); EOSINOPHILS % (AUTO) 2 % (1-7); LYMPHOCYTES # (AUTO) 2.14 x10^3/uL (1-3.4); LYMPHOCYTES % (AUTO) 21 % (22-44); MD NO; MEAN CORPUSCULAR HEMOGLOBIN 31.4 pg (27.5-34.5); MEAN CORPUSCULAR HGB CONC 33.8 g/dL (33.2-36.2); MEAN CORPUSCULAR VOLUME 92.8 fL (81-97); MEAN PLATELET VOLUME 8.5 fL (7.4-10.4); MONOCYTES # (AUTO) 0.68 x10^3/uL (0.2-0.8); MONOCYTES % (AUTO) 7 % (2-9); NEUTROPHILS % (AUTO) 70 % (42-75); PLATELET COUNT 211 x10^3/uL (130-400); RED BLOOD COUNT 4.41 x10^6/uL (4.38-5.82)
[2017-10-23 12:26] LABS: ALBUMIN 3.8 g/dL (3.4-5.0); ANION GAP 8 mmol/L (5-15); CALCIUM 8.5 mg/dL (8.5-10.1); CHLORIDE 108 mmol/L (98-107); CREATININE 0.98 mg/dL (0.7-1.3)
[2017-10-23] MEDS ORDERED: MORPHINE SULFATE 4 MG/ML, 1ML ONE (12:30)
[2017-10-23 12:34] LABS: TROPONIN I < 0.015 ng/mL (0.000-0.045)
[2017-10-23 13:59] VITALS: BP 130/76
== END 2017-10-23 14:03 | disposition home or self-care (01) ==
LOC: ED 13:30
DX: R07.89 Other chest pain (principal); E11.9 Type 2 diabetes mellitus without complications; E78.00 Pure hypercholesterolemia, unspecified; I11.0 Hypertensive heart disease with heart failure; I50.9 Heart failure, unspecified; I25.10 Atherosclerotic heart disease of native coronary artery without angina pectoris; I25.2 Old myocardial infarction
CPT/HCPCS: 36415; 71045; 80048; 82040; 83880; 84484; 85025; 93005; 96374; 99285; J2270

== ENCOUNTER 2017-10-26 14:41 | Observation (INO) | payer MEDICARE, MEDICAID ==
[~2017-10-26] VITALS: Ht 165.1 cm; Wt 80.3 kg
[~2017-10-26 14:41] MED LIST changes: +NITR0.4T28 SL
[2017-10-26] MEDS ORDERED: NITROGLYCERIN OINT 2%, 1GM TP ONE ×2 (15:00→15:07)
[2017-10-26] MEDS ORDERED: SODIUM CHLORIDE FLUSH 10ML SYR IVF ONE (15:00)
[2017-10-26] MEDS ORDERED: NITROGLYCERIN SINGLE TAB 0.4 MG SL PRN (15:00)
[2017-10-26] MEDS ORDERED: NITROGLYCERIN SINGLE TAB 0.4 MG SL ONE (15:07)
[2017-10-26 15:16] LABS: BASOPHILS # (AUTO) 0.02 x10^3/uL (0-0.1); BASOPHILS % (AUTO) 0 % (0-1); EOSINOPHILS # (AUTO) 0.18 x10^3/uL (0-0.4); EOSINOPHILS % (AUTO) 2 % (1-7); LYMPHOCYTES # (AUTO) 2.24 x10^3/uL (1-3.4); LYMPHOCYTES % (AUTO) 20 % (22-44); MD NO; MEAN CORPUSCULAR HEMOGLOBIN 31.3 pg (27.5-34.5); MEAN CORPUSCULAR HGB CONC 33.8 g/dL (33.2-36.2); MEAN CORPUSCULAR VOLUME 92.8 fL (81-97); MEAN PLATELET VOLUME 8.5 fL (7.4-10.4); MONOCYTES # (AUTO) 0.72 x10^3/uL (0.2-0.8); MONOCYTES % (AUTO) 6 % (2-9); NEUTROPHILS # (AUTO) 8.15 x10^3/uL (1.8-6.8); NEUTROPHILS % (AUTO) 72 % (42-75); PLATELET COUNT 227 x10^3/uL (130-400); RED BLOOD COUNT 4.63 x10^6/uL (4.38-5.82); RED CELL DISTRIBUTION WIDTH 14.9 % (9.4-14.8)
[2017-10-26 15:23] LABS: ALANINE AMINOTRANSFERASE 21 U/L (12-78); ALBUMIN 3.7 g/dL (3.4-5.0); ANION GAP 9 mmol/L (5-15); CALCIUM 8.5 mg/dL (8.5-10.1); CHLORIDE 108 mmol/L (98-107); CREATININE 0.98 mg/dL (0.7-1.3)
[2017-10-26 15:27] LABS: ALKALINE PHOSPHATASE 73 U/L (45-117); BILIRUBIN,TOTAL 0.4 mg/dL (0.2-1.0); TOTAL PROTEIN 7.7 g/dL (6.4-8.2); TROPONIN I < 0.015 ng/mL (0.000-0.045)
[2017-10-26] MEDS ORDERED: hydrALAzine 20 MG/ML, 1ML ONE (15:56)
[2017-10-26] MEDS ORDERED: hydrALAzine 20 MG/ML, 1ML IV ONE (16:00)
[2017-10-26] MEDS ORDERED: ENALAPRILAT 1.25 MG/ML, 2ML IVPush PRN (17:00)
[2017-10-26] MEDS ORDERED: ACETAMINOPHEN 325 MG TABLET PO PRN (17:00)
[2017-10-26] MEDS ORDERED: LABETALOL 5MG/ML, 20ML IVPush PRN (17:00)
[2017-10-26] MEDS ORDERED: ONDANSETRON ODT 4 MG PO PRN (17:00)
[2017-10-26] MEDS ORDERED: hydrALAzine 20 MG/ML, 1ML IVPush PRN (17:00)
[2017-10-26] MEDS ORDERED: POLYETHYLENE GLYCOL 17 GM PACKET PO PRN (17:00)
[2017-10-26] MEDS ORDERED: DOCUSATE 100 MG CAPSULE PO PRN (17:00)
[2017-10-26] MEDS ORDERED: BISACODYL 10 MG SUPP PR PRN (17:00)
[2017-10-26] MEDS ORDERED: MORPHINE SULFATE 4 MG/ML, 1ML ONE ×2 (17:05→22:54)
[2017-10-26] MEDS: morphine SULFATE 10 MG/ML, 1ML IVPush PRN ×2 (17:08→23:12)
[2017-10-26 17:29] LABS: TROPONIN I < 0.015 ng/mL (0.000-0.045)
[2017-10-26 20:00] VITALS: BP_SYST 143; BP_SYST 187; BP_DIAS 119; BP_DIAS 85
[2017-10-26] MEDS ORDERED: QUETIAPINE 100MG TABLET PO SCH (21:00)
[2017-10-26] MEDS ORDERED: ATORVASTATIN 40 MG TABLET PO SCH (21:00)
[2017-10-26 21:27] VITALS: BP 162/85
[2017-10-26 21:47] VITALS: BP 165/84
[2017-10-26] MEDS: NITROGLYCERIN 0.4 MG BOTTLE (25 TABS) SL PRN ×3 (21:49→22:03)
[2017-10-26 21:51] VITALS: BP_SYST 143; BP_SYST 154; BP_SYST 187; BP_DIAS 119; BP_DIAS 79; BP_DIAS 85
[2017-10-26 22:02] VITALS: BP 166/77
[2017-10-26 22:11] VITALS: BP 147/86
[2017-10-26] MEDS: RANOLAZINE 500 MG TAB.ER.12H PO SCH (22:13)
[2017-10-26] MEDS: GABAPENTIN 300 MG CAPSULE PO SCH (22:13)
[2017-10-26 23:56] LABS: TROPONIN I < 0.015 ng/mL (0.000-0.045)
[2017-10-27 02:01] VITALS: BP 116/68
[2017-10-27 07:44] VITALS: BP 120/83
[2017-10-27] MEDS: RANOLAZINE 500 MG TAB.ER.12H PO SCH (08:15)
[2017-10-27] MEDS: GABAPENTIN 300 MG CAPSULE PO SCH (08:15)
[2017-10-27] MEDS ORDERED: RANO500T2 PO (08:33)
[2017-10-27] MEDS ORDERED: CLOPIDOGREL 75 MG TABLET PO SCH (09:00)
[2017-10-27] MEDS ORDERED: ESCITALOPRAM OXALATE 20 MG HOMEMEDPO SCH (09:00)
[2017-10-27] MEDS ORDERED: ASPIRIN 81 MG TABLET EC PO SCH (09:00)
[2017-10-27] MEDS ORDERED: METOPROLOL SUCCINATE 100 MG TAB.ER.24H PO SCH (09:00)
[2017-10-27] MEDS ORDERED: LINAGLIPTIN 5 MG HOMEMEDPO SCH (09:00)
[2017-10-27] MEDS ORDERED: LISINOPRIL 10 MG TABLET PO SCH (09:00)
== END 2017-10-27 13:25 | disposition home or self-care (01) ==
LOC: ED 15:49 → INTOOBSV 15:50 → EDIP 15:50 → ED 16:22 → 5SO 20:06 → DCLOUNGE 10-27 13:10
PROVIDERS: ADMIT Hospitalist; ATTEND Hospitalist
DX: R07.89 Other chest pain (principal); D72.829 Elevated white blood cell count, unspecified; E11.9 Type 2 diabetes mellitus without complications; E78.00 Pure hypercholesterolemia, unspecified; E78.5 Hyperlipidemia, unspecified; I11.0 Hypertensive heart disease with heart failure; F12.90 Cannabis use, unspecified, uncomplicated; I16.0 Hypertensive urgency; I25.10 Atherosclerotic heart disease of native coronary artery without angina pectoris; I25.2 Old myocardial infarction; I50.9 Heart failure, unspecified; K21.9 Gastro-esophageal reflux disease without esophagitis; Z95.5 Presence of coronary angioplasty implant and graft; Z79.82 Long term (current) use of aspirin
CPT/HCPCS: 36415; 71045; 80053; 82962; 83880; 84484; 85025; 93005; 96374; 96375; 96376; 99285; G0378; J0360; J2270

== ENCOUNTER 2017-11-01 15:50 | Inpatient (IN) | payer MEDICARE, MEDICAID ==
[~2017-11-01] VITALS: Ht 165.1 cm; Wt 82.6 kg
[2017-11-01] MEDS ORDERED: MAALOX/HYOSCYAMINE/LIDOCAINE 45 ML BTL ONE (16:22)
[2017-11-01] MEDS ORDERED: MAALOX/HYOSCYAMINE/LIDOCAINE 45 ML BTL PO ONE (16:30)
[2017-11-01] MEDS ORDERED: RANITIDINE 50 MG in SODIUM CHLORIDE 0.9% 100 ML IV ONE (16:30)
[2017-11-01] MEDS ORDERED: FAMOTIDINE 20 MG/2 ML IVP ONE (16:30)
[2017-11-01 16:34] LABS: BASOPHILS # (AUTO) 0.06 x10^3/uL (0-0.1); BASOPHILS % (AUTO) 0 % (0-1); EOSINOPHILS # (AUTO) 0.31 x10^3/uL (0-0.4); EOSINOPHILS % (AUTO) 2 % (1-7); LYMPHOCYTES # (AUTO) 1.87 x10^3/uL (1-3.4); LYMPHOCYTES % (AUTO) 12 % (22-44); MD NO; MEAN CORPUSCULAR HEMOGLOBIN 31.6 pg (27.5-34.5); MEAN CORPUSCULAR HGB CONC 33.8 g/dL (33.2-36.2); MEAN CORPUSCULAR VOLUME 93.2 fL (81-97); MEAN PLATELET VOLUME 8.1 fL (7.4-10.4); MONOCYTES % (AUTO) 5 % (2-9); NEUTROPHILS # (AUTO) 12.17 x10^3/uL (1.8-6.8); NEUTROPHILS % (AUTO) 80 % (42-75); PLATELET COUNT 217 x10^3/uL (130-400); RED BLOOD COUNT 4.39 x10^6/uL (4.38-5.82)
[2017-11-01 16:42] LABS: ALANINE AMINOTRANSFERASE 17 U/L (12-78); ALBUMIN 3.6 g/dL (3.4-5.0); ANION GAP 8 mmol/L (5-15); CALCIUM 8.1 mg/dL (8.5-10.1); CHLORIDE 109 mmol/L (98-107); CREATININE 0.89 mg/dL (0.7-1.3)
[2017-11-01 16:47] LABS: ALKALINE PHOSPHATASE 69 U/L (45-117); BILIRUBIN,TOTAL 0.7 mg/dL (0.2-1.0); TOTAL PROTEIN 7.6 g/dL (6.4-8.2); TROPONIN I < 0.015 ng/mL (0.000-0.045)
[2017-11-01] MEDS ORDERED: ONDANSETRON 2MG/ML, 2ML ONE (17:37)
[2017-11-01] MEDS ORDERED: MORPHINE SULFATE 4 MG/ML, 1ML ONE (17:38)
[2017-11-01] MEDS ORDERED: ONDANSETRON ODT 4 MG PO ONE (18:00)
[2017-11-01] MEDS ORDERED: MORPHINE SULFATE 4 MG/ML, 1ML IVPush PRN (18:00)
[2017-11-01] MEDS ORDERED: CEFOTETAN PMX 2GM/50ML 50 ML IV ONE (18:00)
[2017-11-01] MEDS ORDERED: ONDANSETRON 2MG/ML, 2ML IVPush ONE (18:00)
[2017-11-01] MEDS ORDERED: SODIUM CHLORIDE 0.9% 1,000 ML IV SCH (18:44)
[2017-11-01] MEDS ORDERED: NITROGLYCERIN 0.4 MG BOTTLE (25 TABS) SL PRN (19:00)
[2017-11-01] MEDS ORDERED: hydrALAzine 20 MG/ML, 1ML IVPush PRN (19:00)
[2017-11-01] MEDS ORDERED: ONDANSETRON 2MG/ML, 2ML IVPush PRN (19:00)
[2017-11-01] MEDS ORDERED: GLUCAGON 1 MG IM PRN (19:00)
[2017-11-01] MEDS ORDERED: DEXTROSE 50%, 50ML SYRINGE IVPush PRN (19:00)
[2017-11-01] MEDS ORDERED: ACETAMINOPHEN 325 MG TABLET PO PRN (19:00)
[2017-11-01] MEDS ORDERED: DEXTROSE 4 GM TAB.CHEW PO PRN (19:00)
[2017-11-01 19:33] VITALS: BP 124/85
[2017-11-01] MEDS: INSULIN LISPRO 100 UNITS/ML, PEN SQ-INSULIN SCH (20:48)
[2017-11-01] MEDS: ATORVASTATIN 40 MG TABLET PO SCH (21:00)
[2017-11-01] MEDS: GABAPENTIN 300 MG CAPSULE PO SCH (21:37)
[2017-11-01] MEDS: RANOLAZINE 500 MG TAB.ER.12H PO SCH (21:38)
[2017-11-01] MEDS: QUETIAPINE 100MG TABLET PO SCH (21:38)
[2017-11-01] MEDS: morphine SULFATE 10 MG/ML, 1ML IVPush PRN (21:39)
[2017-11-01] MEDS: SODIUM CHLORIDE FLUSH 10ML SYR IVF SCH (21:39)
[2017-11-02] MEDS: morphine SULFATE 10 MG/ML, 1ML IVPush PRN ×4 (00:53→21:09)
[2017-11-02 02:59] VITALS: BP 138/77
[2017-11-02 05:22] LABS: CHLORIDE 109 mmol/L (98-107)
[2017-11-02 05:23] LABS: BASOPHILS # (AUTO) 0.02 x10^3/uL (0-0.1); BASOPHILS % (AUTO) 0 % (0-1); EOSINOPHILS # (AUTO) 0.28 x10^3/uL (0-0.4); EOSINOPHILS % (AUTO) 3 % (1-7); LYMPHOCYTES # (AUTO) 2.54 x10^3/uL (1-3.4); LYMPHOCYTES % (AUTO) 27 % (22-44); MD NO; MEAN CORPUSCULAR HEMOGLOBIN 31.2 pg (27.5-34.5); MEAN CORPUSCULAR HGB CONC 33.4 g/dL (33.2-36.2); MEAN CORPUSCULAR VOLUME 93.5 fL (81-97); MEAN PLATELET VOLUME 7.9 fL (7.4-10.4); MONOCYTES # (AUTO) 0.62 x10^3/uL (0.2-0.8); MONOCYTES % (AUTO) 7 % (2-9); NEUTROPHILS # (AUTO) 5.81 x10^3/uL (1.8-6.8); NEUTROPHILS % (AUTO) 63 % (42-75); PLATELET COUNT 163 x10^3/uL (130-400); RED BLOOD COUNT 3.93 x10^6/uL (4.38-5.82); RED CELL DISTRIBUTION WIDTH 15.4 % (9.4-14.8)
[2017-11-02 05:30] LABS: ALANINE AMINOTRANSFERASE 14 U/L (12-78); ALKALINE PHOSPHATASE 58 U/L (45-117); ANION GAP 6 mmol/L (5-15); BILIRUBIN,TOTAL 0.6 mg/dL (0.2-1.0); CREATININE 1.14 mg/dL (0.7-1.3); TOTAL PROTEIN 6.6 g/dL (6.4-8.2)
[2017-11-02 06:33] VITALS: BP 115/71
[2017-11-02] MEDS: INSULIN LISPRO 100 UNITS/ML, PEN SQ-INSULIN SCH ×4 (07:00→22:34)
[2017-11-02] MEDS: CITALOPRAM 20 MG TABLET PO SCH (08:22)
[2017-11-02] MEDS: LISINOPRIL 10 MG TABLET PO SCH (08:22)
[2017-11-02] MEDS: RANOLAZINE 500 MG TAB.ER.12H PO SCH ×2 (08:22→21:09)
[2017-11-02] MEDS: GABAPENTIN 300 MG CAPSULE PO SCH ×3 (08:22→21:10)
[2017-11-02] MEDS: METOPROLOL SUCCINATE 100 MG TAB.ER.24H PO SCH (08:23)
[2017-11-02] MEDS: SODIUM CHLORIDE FLUSH 10ML SYR IVF SCH ×2 (08:23→21:13)
[2017-11-02] MEDS: TEMPLATE NON-FORMULARY MED. (Linagliptin** (Tradjenta**) 5 MG) PO SCH (09:00)
[2017-11-02] MEDS ORDERED: SINCALIDE (KINEVAC) 5 MCG ONE (12:50)
[2017-11-02 13:38] VITALS: BP 124/79
[2017-11-02 19:18] VITALS: BP 119/80
[2017-11-02] MEDS: ATORVASTATIN 40 MG TABLET PO SCH (21:09)
[2017-11-02] MEDS: QUETIAPINE 100MG TABLET PO SCH (21:09)
[2017-11-03 02:14] VITALS: BP 142/71
[2017-11-03] MEDS: morphine SULFATE 10 MG/ML, 1ML IVPush PRN ×4 (04:48→17:18)
[2017-11-03] MEDS: INSULIN LISPRO 100 UNITS/ML, PEN SQ-INSULIN SCH ×3 (07:00→16:00)
[2017-11-03 08:06] VITALS: BP 112/75
[2017-11-03] MEDS: RANOLAZINE 500 MG TAB.ER.12H PO SCH (08:39)
[2017-11-03] MEDS: METOPROLOL SUCCINATE 100 MG TAB.ER.24H PO SCH (08:39)
[2017-11-03] MEDS: CITALOPRAM 20 MG TABLET PO SCH (08:39)
[2017-11-03] MEDS: GABAPENTIN 300 MG CAPSULE PO SCH ×2 (08:39→16:41)
[2017-11-03] MEDS: TEMPLATE NON-FORMULARY MED. (Linagliptin** (Tradjenta**) 5 MG) PO SCH (08:40)
[2017-11-03] MEDS: SODIUM CHLORIDE FLUSH 10ML SYR IVF SCH (08:40)
[2017-11-03] MEDS: LISINOPRIL 10 MG TABLET PO SCH (08:40)
[2017-11-03 13:58] VITALS: BP 108/71
[2017-11-04] MEDS ORDERED: CLOP75TA52 PO (12:43)
== END 2017-11-03 18:09 | disposition home or self-care (01) | DRG 446 ==
LOC: ED 17:56 → EDIP 17:57 → 4EST 19:12
PROVIDERS: ADMIT Hospitalist; ATTEND Family Medicine
DX: K80.00 Calculus of gallbladder with acute cholecystitis without obstruction (principal); E11.40 Type 2 diabetes mellitus with diabetic neuropathy, unspecified; I11.0 Hypertensive heart disease with heart failure; I50.9 Heart failure, unspecified; K21.9 Gastro-esophageal reflux disease without esophagitis; E78.5 Hyperlipidemia, unspecified; I25.119 Atherosclerotic heart disease of native coronary artery with unspecified angina pectoris; F14.90 Cocaine use, unspecified, uncomplicated; G89.29 Other chronic pain; E66.9 Obesity, unspecified; Z68.30 Body mass index [BMI] 30.0-30.9, adult; E78.00 Pure hypercholesterolemia, unspecified; F12.90 Cannabis use, unspecified, uncomplicated; F32.9 Major depressive disorder, single episode, unspecified; I25.2 Old myocardial infarction; I25.5 Ischemic cardiomyopathy; K82.8 Other specified diseases of gallbladder; Z79.02 Long term (current) use of antithrombotics/antiplatelets; Z79.82 Long term (current) use of aspirin; Z82.41 Family history of sudden cardiac death; Z82.5 Family history of asthma and other chronic lower respiratory diseases; Z95.0 Presence of cardiac pacemaker; Z95.1 Presence of aortocoronary bypass graft; Z95.5 Presence of coronary angioplasty implant and graft
CPT/HCPCS: 36415; 71045; 76700; 78227; 80053; 82962; 83690; 83735; 84100; 84484; 85025; 86677; 93005; 96365; 96366; 96368; 96375; J2405; J2780; A9537; C9898; J1815; J2270; J2805; J7030; S0074

== ENCOUNTER 2017-11-30 13:43 | Emergency (ER) | payer MEDICARE, MEDICAID ==
[~2017-11-30] VITALS: Ht 165.1 cm; Wt 81.0 kg
[~2017-11-30 13:43] MED LIST changes: -MAGN64TA9 PO; +MAGNESIUM DR64 MG PO
[2017-11-30] MEDS ORDERED: ONDANSETRON ODT 4 MG ONE (14:17)
[2017-11-30] MEDS ORDERED: MAALOX/HYOSCYAMINE/LIDOCAINE 45 ML BTL ONE (14:17)
[2017-11-30] MEDS ORDERED: MORPHINE SULFATE 4 MG/ML, 1ML ONE ×2 (14:17→17:30)
[2017-11-30] MEDS: MORPHINE SULFATE 4 MG/ML, 1ML IVPush PRN ×2 (14:23→17:35)
[2017-11-30] MEDS ORDERED: OMEP20TA62 PO (14:29)
[2017-11-30] MEDS ORDERED: MAALOX/HYOSCYAMINE/LIDOCAINE 45 ML BTL PO ONE (14:30)
[2017-11-30] MEDS ORDERED: ONDANSETRON ODT 4 MG PO ONE (14:30)
[2017-11-30 15:04] LABS: BASOPHILS # (AUTO) 0.06 x10^3/uL (0-0.1); BASOPHILS % (AUTO) 1 % (0-1); EOSINOPHILS # (AUTO) 0.48 x10^3/uL (0-0.4); EOSINOPHILS % (AUTO) 4 % (1-7); LYMPHOCYTES # (AUTO) 1.65 x10^3/uL (1-3.4); LYMPHOCYTES % (AUTO) 13 % (22-44); MD NO; MEAN CORPUSCULAR HEMOGLOBIN 31.2 pg (27.5-34.5); MEAN CORPUSCULAR HGB CONC 33.2 g/dL (33.2-36.2); MEAN CORPUSCULAR VOLUME 93.9 fL (81-97); MEAN PLATELET VOLUME 8.5 fL (7.4-10.4); MONOCYTES # (AUTO) 0.79 x10^3/uL (0.2-0.8); MONOCYTES % (AUTO) 6 % (2-9); NEUTROPHILS # (AUTO) 9.51 x10^3/uL (1.8-6.8); NEUTROPHILS % (AUTO) 76 % (42-75); PLATELET COUNT 208 x10^3/uL (130-400); RED BLOOD COUNT 4.18 x10^6/uL (4.38-5.82); RED CELL DISTRIBUTION WIDTH 14.5 % (9.4-14.8)
[2017-11-30 15:13] LABS: CHLORIDE 112 mmol/L (98-107)
[2017-11-30 15:22] LABS: ALANINE AMINOTRANSFERASE 28 U/L (12-78); ALBUMIN 3.2 g/dL (3.4-5.0); ALKALINE PHOSPHATASE 76 U/L (45-117); ANION GAP 8 mmol/L (5-15); BILIRUBIN,TOTAL 0.3 mg/dL (0.2-1.0); CALCIUM 8.2 mg/dL (8.5-10.1); CREATININE 0.92 mg/dL (0.7-1.3); TOTAL PROTEIN 6.9 g/dL (6.4-8.2); TROPONIN I < 0.015 ng/mL (0.000-0.045)
[2017-11-30] MEDS ORDERED: OMNIPAQUE 350 MG/ML, 100ML BOTTLE ONE (16:42)
[2017-11-30 18:10] LABS: TROPONIN I < 0.015 ng/mL (0.000-0.045)
[2017-11-30 19:31] VITALS: BP 136/72
== END 2017-11-30 19:32 | disposition home or self-care (01) ==
LOC: ED 18:50
DX: R10.12 Left upper quadrant pain (principal); E78.00 Pure hypercholesterolemia, unspecified; I25.5 Ischemic cardiomyopathy; I50.9 Heart failure, unspecified; I11.0 Hypertensive heart disease with heart failure; I25.2 Old myocardial infarction; E11.9 Type 2 diabetes mellitus without complications; E78.5 Hyperlipidemia, unspecified; I25.10 Atherosclerotic heart disease of native coronary artery without angina pectoris; I95.9 Hypotension, unspecified; Z90.49 Acquired absence of other specified parts of digestive tract
CPT/HCPCS: 36415; 71045; 74177; 80053; 83690; 84484; 85025; 93005; 96374; 96376; 99285; Q0162; Q9967

== ENCOUNTER 2017-12-07 08:18 | Inpatient (IN) | payer MEDICARE, MEDICAID ==
[~2017-12-07] VITALS: Ht 165.1 cm; Wt 86.6 kg
[2017-12-07] MEDS ORDERED: ASPIRIN 81 MG TABLET CHEW PO ONE (09:00)
[2017-12-07 09:28] LABS: BASOPHILS # (AUTO) 0.03 x10^3/uL (0-0.1); BASOPHILS % (AUTO) 0 % (0-1); EOSINOPHILS # (AUTO) 0.47 x10^3/uL (0-0.4); EOSINOPHILS % (AUTO) 5 % (1-7); LYMPHOCYTES # (AUTO) 1.26 x10^3/uL (1-3.4); LYMPHOCYTES % (AUTO) 13 % (22-44); MD NO; MEAN CORPUSCULAR HGB CONC 32.9 g/dL (33.2-36.2); MEAN CORPUSCULAR VOLUME 94.3 fL (81-97); MEAN PLATELET VOLUME 8.3 fL (7.4-10.4); MONOCYTES # (AUTO) 0.64 x10^3/uL (0.2-0.8); MONOCYTES % (AUTO) 7 % (2-9); NEUTROPHILS # (AUTO) 7.45 x10^3/uL (1.8-6.8); NEUTROPHILS % (AUTO) 76 % (42-75); PLATELET COUNT 197 x10^3/uL (130-400); RED BLOOD COUNT 3.72 x10^6/uL (4.38-5.82); RED CELL DISTRIBUTION WIDTH 14.8 % (9.4-14.8)
[2017-12-07 09:41] LABS: ALBUMIN 3.1 g/dL (3.4-5.0); ANION GAP 7 mmol/L (5-15); CALCIUM 7.9 mg/dL (8.5-10.1); CHLORIDE 109 mmol/L (98-107)
[2017-12-07 09:46] LABS: ALANINE AMINOTRANSFERASE 21 U/L (12-78); ALKALINE PHOSPHATASE 85 U/L (45-117); BILIRUBIN,TOTAL 0.7 mg/dL (0.2-1.0); CREATININE 1.02 mg/dL (0.7-1.3); TOTAL PROTEIN 6.7 g/dL (6.4-8.2); TROPONIN I < 0.015 ng/mL (0.000-0.045)
[2017-12-07] MEDS ORDERED: ONDANSETRON 2MG/ML, 2ML IVPush PRN (12:30)
[2017-12-07] MEDS: INSULIN LISPRO 100 UNITS/ML, PEN SQ-INSULIN SCH ×3 (12:30→21:00)
[2017-12-07] MEDS ORDERED: HEPARIN 5,000 UNITS/ML, 1ML ONE (13:26)
[2017-12-07] MEDS: HEPARIN 5,000 UNITS/ML, 1ML SQ SCH ×2 (13:31→21:08)
[2017-12-07] MEDS: LACTATED RINGERS 1,000 ML IV SCH ×2 (13:35→23:19)
[2017-12-07 14:57] LABS: HEMOGLOBIN A1C 6.3 % (4.2-6.3)
[2017-12-07 15:47] LABS: TROPONIN I < 0.015 ng/mL (0.000-0.045)
[2017-12-07 16:14] VITALS: BP 151/85
[2017-12-07] MEDS: GABAPENTIN 300 MG CAPSULE PO SCH ×2 (17:41→21:08)
[2017-12-07] MEDS: MORPHINE SULFATE 4 MG/ML, 1ML IVPush PRN ×2 (17:50→21:09)
[2017-12-07 19:19] VITALS: BP 144/82
[2017-12-07] MEDS: ATORVASTATIN 40 MG TABLET PO SCH (21:08)
[2017-12-07] MEDS: QUETIAPINE 100MG TABLET PO SCH (21:08)
[2017-12-07] MEDS: RANOLAZINE 500 MG TAB.ER.12H PO SCH (21:08)
[2017-12-07 21:25] LABS: TROPONIN I < 0.015 ng/mL (0.000-0.045)
[2017-12-08 02:02] VITALS: BP 144/82
[2017-12-08 04:42] LABS: BASOPHILS # (AUTO) 0.03 x10^3/uL (0-0.1); BASOPHILS % (AUTO) 0 % (0-1); EOSINOPHILS # (AUTO) 0.47 x10^3/uL (0-0.4); EOSINOPHILS % (AUTO) 6 % (1-7); LYMPHOCYTES # (AUTO) 2.28 x10^3/uL (1-3.4); LYMPHOCYTES % (AUTO) 27 % (22-44); MD NO; MEAN CORPUSCULAR HEMOGLOBIN 32.2 pg (27.5-34.5); MEAN CORPUSCULAR HGB CONC 33.8 g/dL (33.2-36.2); MEAN CORPUSCULAR VOLUME 95.2 fL (81-97); MEAN PLATELET VOLUME 8.2 fL (7.4-10.4); MONOCYTES # (AUTO) 0.76 x10^3/uL (0.2-0.8); MONOCYTES % (AUTO) 9 % (2-9); NEUTROPHILS # (AUTO) 4.77 x10^3/uL (1.8-6.8); NEUTROPHILS % (AUTO) 57 % (42-75); PLATELET COUNT 161 x10^3/uL (130-400); RED BLOOD COUNT 3.37 x10^6/uL (4.38-5.82); RED CELL DISTRIBUTION WIDTH 14.9 % (9.4-14.8)
[2017-12-08 04:51] LABS: CHLORIDE 109 mmol/L (98-107)
[2017-12-08 04:52] LABS: ALBUMIN 2.7 g/dL (3.4-5.0); ANION GAP 6 mmol/L (5-15)
[2017-12-08 04:56] LABS: ALANINE AMINOTRANSFERASE 18 U/L (12-78); ALKALINE PHOSPHATASE 75 U/L (45-117); BILIRUBIN,TOTAL 0.5 mg/dL (0.2-1.0); CHOL/HDL RATIO 3.7; CHOLESTEROL, TOTAL 142 mg/dL (140-239); CREATININE 0.98 mg/dL (0.7-1.3); HDL CHOL % 27 % (26-37); HDL CHOLESTEROL (DIRECT) 38 mg/dL (40-60); LDL CHOLESTEROL,CALCULATED 59 mg/dL (54-169); LDL/HDL RATIO 1.6 (0.5-3.0); TRIGLYCERIDES 226 mg/dL (50-200); VLDL CHOLESTEROL 45 mg/dL (0-25)
[2017-12-08] MEDS: HEPARIN 5,000 UNITS/ML, 1ML SQ SCH ×3 (05:00→20:35)
[2017-12-08] MEDS: MORPHINE SULFATE 4 MG/ML, 1ML IVPush PRN ×6 (05:07→20:56)
[2017-12-08] MEDS: INSULIN LISPRO 100 UNITS/ML, PEN SQ-INSULIN SCH ×4 (07:00→20:58)
[2017-12-08 07:08] VITALS: BP 122/81
[2017-12-08] MEDS: PANTOPRAZOLE 40 MG IV IVPush SCH (08:08)
[2017-12-08] MEDS: CLOPIDOGREL 75 MG TABLET PO SCH (08:09)
[2017-12-08] MEDS: METOPROLOL SUCCINATE 100 MG TAB.ER.24H PO SCH (08:09)
[2017-12-08] MEDS: RANOLAZINE 500 MG TAB.ER.12H PO SCH ×2 (08:09→20:36)
[2017-12-08] MEDS: ASPIRIN 81 MG TABLET EC PO SCH (08:09)
[2017-12-08] MEDS: GABAPENTIN 300 MG CAPSULE PO SCH ×3 (08:09→20:36)
[2017-12-08] MEDS: LISINOPRIL 10 MG TABLET PO SCH (08:09)
[2017-12-08] MEDS: TEMPLATE NON-FORMULARY MED. (Escitalopram Oxalate** 20 MG) PO SCH (08:10)
[2017-12-08] MEDS ORDERED: TEMPLATE NON-FORMULARY MED. (Omeprazole Magnesium** (Prilosec Otc**) 20 MG) PO SCH (09:00)
[2017-12-08] MEDS: LACTATED RINGERS 1,000 ML IV SCH ×2 (10:04→20:15)
[2017-12-08 12:45] VITALS: BP 153/87
[2017-12-08 18:47] VITALS: BP_SYST 189; BP_SYST 195; BP_DIAS 84; BP_DIAS 91
[2017-12-08] MEDS: QUETIAPINE 100MG TABLET PO SCH (20:36)
[2017-12-08] MEDS: ATORVASTATIN 40 MG TABLET PO SCH (20:36)
[2017-12-08] MEDS ORDERED: morphine SULFATE 10 MG/ML, 1ML ONE (20:51)
[2017-12-09] MEDS: MORPHINE SULFATE 4 MG/ML, 1ML IVPush PRN ×4 (00:03→10:33)
[2017-12-09 01:40] VITALS: BP 162/78
[2017-12-09] MEDS: HEPARIN 5,000 UNITS/ML, 1ML SQ SCH ×2 (03:23→12:00)
[2017-12-09] MEDS: LACTATED RINGERS 1,000 ML IV SCH (05:49)
[2017-12-09 06:53] VITALS: BP 119/81
[2017-12-09] MEDS: INSULIN LISPRO 100 UNITS/ML, PEN SQ-INSULIN SCH ×2 (07:00→11:00)
[2017-12-09] MEDS: TEMPLATE NON-FORMULARY MED. (Escitalopram Oxalate** 20 MG) PO SCH (08:28)
[2017-12-09] MEDS: RANOLAZINE 500 MG TAB.ER.12H PO SCH (08:29)
[2017-12-09] MEDS: PANTOPRAZOLE 40 MG IV IVPush SCH (08:30)
[2017-12-09] MEDS: METOPROLOL SUCCINATE 100 MG TAB.ER.24H PO SCH (08:30)
[2017-12-09] MEDS: GABAPENTIN 300 MG CAPSULE PO SCH (08:30)
[2017-12-09] MEDS: LISINOPRIL 10 MG TABLET PO SCH (08:30)
[2017-12-09] MEDS: ASPIRIN 81 MG TABLET EC PO SCH (08:30)
[2017-12-09] MEDS: CLOPIDOGREL 75 MG TABLET PO SCH (08:30)
== END 2017-12-09 13:04 | disposition home or self-care (01) | DRG 438 ==
LOC: ED 10:17 → EDIP 10:56 → 3NE 16:07
PROVIDERS: ADMIT Hospitalist; ATTEND Hospitalist
DX: K85.30 Drug induced acute pancreatitis without necrosis or infection (principal); E43 Unspecified severe protein-calorie malnutrition; E11.42 Type 2 diabetes mellitus with diabetic polyneuropathy; I11.0 Hypertensive heart disease with heart failure; I50.9 Heart failure, unspecified; D64.9 Anemia, unspecified; E66.9 Obesity, unspecified; E78.00 Pure hypercholesterolemia, unspecified; E78.5 Hyperlipidemia, unspecified; I25.10 Atherosclerotic heart disease of native coronary artery without angina pectoris; K21.9 Gastro-esophageal reflux disease without esophagitis; I25.5 Ischemic cardiomyopathy; F12.90 Cannabis use, unspecified, uncomplicated; R55 Syncope and collapse; F31.9 Bipolar disorder, unspecified; G89.29 Other chronic pain; I25.2 Old myocardial infarction; Z79.84 Long term (current) use of oral hypoglycemic drugs; Z95.1 Presence of aortocoronary bypass graft; Z95.5 Presence of coronary angioplasty implant and graft; Z68.31 Body mass index [BMI] 31.0-31.9, adult; Z90.49 Acquired absence of other specified parts of digestive tract
CPT/HCPCS: 36415; 71046; 80053; 80061; 82962; 83036; 83690; 83735; 83880; 84100; 84484; 85025; 93005; 96360; 96361; 96372; J1644; C9113; J7120

== ENCOUNTER 2017-12-11 11:56 | Emergency (ER) | payer MEDICARE, MEDICAID ==
[~2017-12-11] VITALS: Ht 165.1 cm; Wt 82.3 kg
[2017-12-11 13:07] LABS: BASOPHILS # (AUTO) 0.03 x10^3/uL (0-0.1); BASOPHILS % (AUTO) 0 % (0-1); EOSINOPHILS # (AUTO) 0.12 x10^3/uL (0-0.4); EOSINOPHILS % (AUTO) 2 % (1-7); LYMPHOCYTES # (AUTO) 1.69 x10^3/uL (1-3.4); LYMPHOCYTES % (AUTO) 21 % (22-44); MD NO; MEAN CORPUSCULAR HEMOGLOBIN 32.2 pg (27.5-34.5); MEAN CORPUSCULAR HGB CONC 33.9 g/dL (33.2-36.2); MEAN CORPUSCULAR VOLUME 95.1 fL (81-97); MEAN PLATELET VOLUME 8.1 fL (7.4-10.4); MONOCYTES # (AUTO) 1.02 x10^3/uL (0.2-0.8); MONOCYTES % (AUTO) 13 % (2-9); NEUTROPHILS # (AUTO) 5.13 x10^3/uL (1.8-6.8); NEUTROPHILS % (AUTO) 64 % (42-75); PLATELET COUNT 237 x10^3/uL (130-400); RED BLOOD COUNT 4.09 x10^6/uL (4.38-5.82); RED CELL DISTRIBUTION WIDTH 14.9 % (9.4-14.8)
[2017-12-11 13:19] LABS: ALANINE AMINOTRANSFERASE 28 U/L (12-78); ALBUMIN 3.7 g/dL (3.4-5.0); ANION GAP 8 mmol/L (5-15); CALCIUM 8.7 mg/dL (8.5-10.1); CHLORIDE 107 mmol/L (98-107); CREATININE 1.07 mg/dL (0.7-1.3)
[2017-12-11 13:22] LABS: ALKALINE PHOSPHATASE 107 U/L (45-117); BILIRUBIN,TOTAL 0.7 mg/dL (0.2-1.0); TOTAL PROTEIN 8.3 g/dL (6.4-8.2)
[2017-12-11] MEDS ORDERED: KETOROLAC 30 MG/1 ML ONE (15:03)
[2017-12-11] MEDS ORDERED: LISINOPRIL 20 MG TABLET ONE (15:03)
[2017-12-11 15:08] LABS: MICROSCOPIC AUTO
[2017-12-11 15:09] LABS: CULTURE INDICATED? YES
[2017-12-11] MEDS ORDERED: KETOROLAC 30 MG/1 ML IM ONE (15:30)
[2017-12-11] MEDS ORDERED: LISINOPRIL 20 MG TABLET PO ONE (15:30)
[2017-12-11 15:57] VITALS: BP 201/88
== END 2017-12-11 17:10 | disposition home or self-care (01) ==
LOC: ED 13:35
DX: R10.30 Lower abdominal pain, unspecified (principal); R10.32 Left lower quadrant pain; I25.2 Old myocardial infarction; E11.9 Type 2 diabetes mellitus without complications; E78.00 Pure hypercholesterolemia, unspecified; E78.5 Hyperlipidemia, unspecified; F32.9 Major depressive disorder, single episode, unspecified; I25.10 Atherosclerotic heart disease of native coronary artery without angina pectoris; K21.9 Gastro-esophageal reflux disease without esophagitis; Z95.5 Presence of coronary angioplasty implant and graft
CPT/HCPCS: 36415; 74021; 74176; 80053; 81001; 83690; 85025; 87086; 93005; 96372; 99285; J1885

== ENCOUNTER 2017-12-16 19:41 | Observation (INO) | payer MEDICARE, MEDICAID ==
[~2017-12-16] VITALS: Ht 165.1 cm; Wt 82.9 kg
[2017-12-16] MEDS ORDERED: SODIUM CHLORIDE FLUSH 10ML SYR IVF ONE (20:30)
[2017-12-16] MEDS ORDERED: ASPIRIN 81 MG TABLET CHEW PO ONE (20:30)
[2017-12-16] MEDS ORDERED: ONDANSETRON ODT 4 MG PO ONE (20:30)
[2017-12-16 20:44] LABS: BASOPHILS # (AUTO) 0.04 x10^3/uL (0-0.1); BASOPHILS % (AUTO) 0 % (0-1); EOSINOPHILS # (AUTO) 0.33 x10^3/uL (0-0.4); EOSINOPHILS % (AUTO) 3 % (1-7); LYMPHOCYTES # (AUTO) 2.65 x10^3/uL (1-3.4); LYMPHOCYTES % (AUTO) 27 % (22-44); MD NO; MEAN CORPUSCULAR HEMOGLOBIN 31.9 pg (27.5-34.5); MEAN CORPUSCULAR HGB CONC 33.6 g/dL (33.2-36.2); MEAN CORPUSCULAR VOLUME 94.9 fL (81-97); MEAN PLATELET VOLUME 8.4 fL (7.4-10.4); MONOCYTES # (AUTO) 0.77 x10^3/uL (0.2-0.8); MONOCYTES % (AUTO) 8 % (2-9); NEUTROPHILS # (AUTO) 5.98 x10^3/uL (1.8-6.8); NEUTROPHILS % (AUTO) 61 % (42-75); PLATELET COUNT 290 x10^3/uL (130-400); RED BLOOD COUNT 4.17 x10^6/uL (4.38-5.82)
[2017-12-16] MEDS ORDERED: MORPHINE SULFATE 4 MG/ML, 1ML ONE ×2 (20:47→22:01)
[2017-12-16] MEDS ORDERED: ONDANSETRON ODT 4 MG ONE (20:47)
[2017-12-16] MEDS ORDERED: ASPIRIN 81 MG TABLET CHEW ONE (20:47)
[2017-12-16 20:49] LABS: ALANINE AMINOTRANSFERASE 24 U/L (12-78); ALBUMIN 3.6 g/dL (3.4-5.0); ANION GAP 11 mmol/L (5-15); CALCIUM 8.7 mg/dL (8.5-10.1); CHLORIDE 108 mmol/L (98-107); CREATININE 1.27 mg/dL (0.7-1.3)
[2017-12-16 20:53] LABS: ALKALINE PHOSPHATASE 85 U/L (45-117); BILIRUBIN,TOTAL 0.3 mg/dL (0.2-1.0); TOTAL PROTEIN 7.5 g/dL (6.4-8.2); TROPONIN I < 0.015 ng/mL (0.000-0.045)
[2017-12-16] MEDS: MORPHINE SULFATE 4 MG/ML, 1ML IVPush PRN ×2 (20:56→22:03)
[2017-12-16] MEDS ORDERED: MORPHINE SULFATE 4 MG/ML, 1ML IVPush PRN (22:30)
[2017-12-16] MEDS ORDERED: TRADJENTA PO (22:35)
[2017-12-16 23:05] VITALS: BP 118/82
[2017-12-16] MEDS ORDERED: POLYETHYLENE GLYCOL 17 GM PACKET PO PRN (23:30)
[2017-12-16] MEDS ORDERED: ONDANSETRON ODT 4 MG PO PRN (23:30)
[2017-12-16] MEDS ORDERED: BISACODYL 10 MG SUPP PR PRN (23:30)
[2017-12-16] MEDS ORDERED: PROMETHAZINE 25 MG/ML, 1ML IM PRN (23:30)
[2017-12-16] MEDS ORDERED: hydrALAzine 20 MG/ML, 1ML IVPush PRN (23:30)
[2017-12-16] MEDS ORDERED: LABETALOL 5MG/ML, 20ML IVPush PRN (23:30)
[2017-12-16] MEDS ORDERED: DOCUSATE 100 MG CAPSULE PO PRN (23:30)
[2017-12-16] MEDS ORDERED: ONDANSETRON 2MG/ML, 2ML IVPush PRN (23:30)
[2017-12-16] MEDS ORDERED: QUETIAPINE 25MG TABLET ONE (23:47)
[2017-12-16] MEDS: RANOLAZINE 500 MG TAB.ER.12H PO SCH (23:52)
[2017-12-16] MEDS: GABAPENTIN 300 MG CAPSULE PO SCH (23:52)
[2017-12-16 23:53] LABS: MICROSCOPIC AUTO
[2017-12-16] MEDS: HEPARIN 5,000 UNITS/ML, 1ML SQ SCH (23:54)
[2017-12-16 23:56] LABS: CULTURE INDICATED? NO
[2017-12-17] MEDS ORDERED: NITROGLYCERIN 0.4 MG BOTTLE (25 TABS) SL PRN
[2017-12-17] MEDS ORDERED: ATORVASTATIN 40 MG TABLET PO SCH
[2017-12-17] MEDS ORDERED: QUETIAPINE 100MG TABLET PO SCH
[2017-12-17 00:15] LABS: HEMOGLOBIN A1C 6.2 % (4.2-6.3)
[2017-12-17 00:18] LABS: FREE T4 (FREE THYROXINE) 1.21 ng/dL (0.76-1.46); THYROID STIMULATING HORMONE 2.07 mIU/L (0.358-3.740)
[2017-12-17 00:21] VITALS: BP 107/74
[2017-12-17] MEDS: ACETAMINOPHEN 325 MG TABLET PO PRN ×2 (01:01→16:01)
[2017-12-17 03:31] LABS: BASOPHILS # (AUTO) 0.02 x10^3/uL (0-0.1); BASOPHILS % (AUTO) 0 % (0-1); EOSINOPHILS # (AUTO) 0.21 x10^3/uL (0-0.4); EOSINOPHILS % (AUTO) 3 % (1-7); LYMPHOCYTES % (AUTO) 35 % (22-44); MD NO; MEAN CORPUSCULAR HEMOGLOBIN 31.8 pg (27.5-34.5); MEAN CORPUSCULAR HGB CONC 33.4 g/dL (33.2-36.2); MEAN CORPUSCULAR VOLUME 95.3 fL (81-97); MEAN PLATELET VOLUME 8.4 fL (7.4-10.4); MONOCYTES # (AUTO) 0.64 x10^3/uL (0.2-0.8); MONOCYTES % (AUTO) 8 % (2-9); NEUTROPHILS # (AUTO) 4.53 x10^3/uL (1.8-6.8); NEUTROPHILS % (AUTO) 55 % (42-75); PLATELET COUNT 238 x10^3/uL (130-400); RED BLOOD COUNT 3.94 x10^6/uL (4.38-5.82); RED CELL DISTRIBUTION WIDTH 14.4 % (9.4-14.8)
[2017-12-17 03:42] LABS: ALBUMIN 3.3 g/dL (3.4-5.0); ANION GAP 7 mmol/L (5-15); CALCIUM 8.3 mg/dL (8.5-10.1); CHLORIDE 108 mmol/L (98-107)
[2017-12-17 03:48] LABS: ALANINE AMINOTRANSFERASE 23 U/L (12-78); ALKALINE PHOSPHATASE 81 U/L (45-117); BILIRUBIN,TOTAL 0.3 mg/dL (0.2-1.0); CREATININE 1.13 mg/dL (0.7-1.3); TROPONIN I < 0.015 ng/mL (0.000-0.045)
[2017-12-17] MEDS: HEPARIN 5,000 UNITS/ML, 1ML SQ SCH ×2 (08:36→12:59)
[2017-12-17] MEDS: RANOLAZINE 500 MG TAB.ER.12H PO SCH (08:36)
[2017-12-17] MEDS: GABAPENTIN 300 MG CAPSULE PO SCH ×2 (08:36→16:02)
[2017-12-17 08:40] VITALS: BP 165/83
[2017-12-17] MEDS ORDERED: CLOPIDOGREL 75 MG TABLET PO SCH (09:00)
[2017-12-17] MEDS ORDERED: TEMPLATE NON-FORMULARY MED. (Escitalopram Oxalate** 20 MG) HOMEMEDPO SCH (09:00)
[2017-12-17] MEDS ORDERED: LISINOPRIL 10 MG TABLET PO SCH (09:00)
[2017-12-17] MEDS ORDERED: METOPROLOL SUCCINATE 100 MG TAB.ER.24H PO SCH (09:00)
[2017-12-17] MEDS ORDERED: ASPIRIN 81 MG TABLET EC PO SCH (09:00)
[2017-12-17] MEDS ORDERED: OMEPRAZOLE 20 MG CAPSULE.DR PO SCH (09:00)
[2017-12-17 09:02] LABS: TROPONIN I < 0.015 ng/mL (0.000-0.045)
[2017-12-17] MEDS ORDERED: CITALOPRAM 20 MG TABLET PO SCH (09:06)
[2017-12-17 13:35] VITALS: BP 109/70
[2017-12-17 15:50] VITALS: BP 116/78
== END 2017-12-17 16:40 | disposition home or self-care (01) ==
LOC: ED 21:41 → EDIP 22:15 → INTOOBSV 22:15 → 5SO 22:59 → DCLOUNGE 12-17 16:32
PROVIDERS: ADMIT Internal Medicine; ATTEND Internal Medicine
DX: R07.89 Other chest pain (principal); I25.10 Atherosclerotic heart disease of native coronary artery without angina pectoris; I11.0 Hypertensive heart disease with heart failure; I50.9 Heart failure, unspecified; I25.5 Ischemic cardiomyopathy; I25.2 Old myocardial infarction; G89.29 Other chronic pain; E78.5 Hyperlipidemia, unspecified; E78.00 Pure hypercholesterolemia, unspecified; E11.9 Type 2 diabetes mellitus without complications; K21.9 Gastro-esophageal reflux disease without esophagitis; F31.9 Bipolar disorder, unspecified; Z91.5 Personal history of self-harm
CPT/HCPCS: 36415; 71045; 80053; 81001; 83036; 83690; 83735; 83880; 84439; 84443; 84484; 85025; 93005; 96372; 96374; 96376; 99285; G0378; J1644; Q0162

== ENCOUNTER 2017-12-23 19:22 | Emergency (ER) | payer MEDICARE, MEDICAID ==
[~2017-12-23] VITALS: Ht 165.1 cm; Wt 82.0 kg
[~2017-12-23 19:22] MED LIST changes: +TRADJENTA PO
[2017-12-23 20:02] LABS: BASOPHILS % (AUTO) 1 % (0-1); EOSINOPHILS % (AUTO) 2 % (1-7); LYMPHOCYTES % (AUTO) 23 % (22-44); MEAN CORPUSCULAR HGB CONC 34.1 g/dL (33.2-36.2); MEAN CORPUSCULAR VOLUME 94.1 fL (81-97); MEAN PLATELET VOLUME 8.3 fL (7.4-10.4); MONOCYTES % (AUTO) 7 % (2-9); NEUTROPHILS % (AUTO) 68 % (42-75); PLATELET COUNT 242 x10^3/uL (130-400); RED BLOOD COUNT 4.29 x10^6/uL (4.38-5.82); RED CELL DISTRIBUTION WIDTH 14.1 % (9.4-14.8)
[2017-12-23 20:03] LABS: BASOPHILS # (AUTO) 0.11 x10^3/uL (0-0.1); EOSINOPHILS # (AUTO) 0.16 x10^3/uL (0-0.4); LYMPHOCYTES # (AUTO) 2.49 x10^3/uL (1-3.4); MD NO; MONOCYTES # (AUTO) 0.71 x10^3/uL (0.2-0.8); NEUTROPHILS # (AUTO) 7.49 x10^3/uL (1.8-6.8)
[2017-12-23 20:08] LABS: ALBUMIN 3.6 g/dL (3.4-5.0); ANION GAP 9 mmol/L (5-15); CALCIUM 8.4 mg/dL (8.5-10.1); CHLORIDE 110 mmol/L (98-107)
[2017-12-23 20:14] LABS: ALANINE AMINOTRANSFERASE 22 U/L (12-78); ALKALINE PHOSPHATASE 87 U/L (45-117); BILIRUBIN,TOTAL 0.5 mg/dL (0.2-1.0); CREATININE 0.96 mg/dL (0.7-1.3); TOTAL PROTEIN 7.4 g/dL (6.4-8.2); TROPONIN I < 0.015 ng/mL (0.000-0.045)
[2017-12-23] MEDS ORDERED: MAALOX/HYOSCYAMINE/LIDOCAINE 45 ML BTL PO ONE (22:00)
[2017-12-23 22:23] LABS: TROPONIN I < 0.015 ng/mL (0.000-0.045)
[2017-12-23] MEDS ORDERED: ONDANSETRON ODT 4 MG ONE (23:35)
[2017-12-23] MEDS ORDERED: MAALOX/HYOSCYAMINE/LIDOCAINE 45 ML BTL ONE (23:42)
[2017-12-24 00:10] VITALS: BP 156/91
[2017-12-24] MEDS ORDERED: ONDANSETRON ODT 4 MG PO ONE (00:30)
== END 2017-12-24 00:14 | disposition home or self-care (01) ==
LOC: ED 20:22
DX: R07.2 Precordial pain (principal); K85.90 Acute pancreatitis without necrosis or infection, unspecified; I25.10 Atherosclerotic heart disease of native coronary artery without angina pectoris; I25.2 Old myocardial infarction; E78.5 Hyperlipidemia, unspecified; E78.00 Pure hypercholesterolemia, unspecified; E66.9 Obesity, unspecified; E11.9 Type 2 diabetes mellitus without complications
CPT/HCPCS: 36415; 71045; 80053; 83690; 84484; 85025; 93005; 99285

== ENCOUNTER 2017-12-29 08:09 | Inpatient (IN) | payer MEDICARE, MEDICAID ==
[~2017-12-29] VITALS: Ht 165.1 cm; Wt 79.1 kg
[2017-12-29] MEDS ORDERED: SODIUM CHLORIDE 0.9% 1,000 ML IV ONE (08:23)
[2017-12-29] MEDS ORDERED: ASPIRIN 81 MG TABLET CHEW PO ONE (08:30)
[2017-12-29] MEDS ORDERED: MORPHINE SULFATE 4 MG/ML, 1ML IVPush PRN (08:30)
[2017-12-29] MEDS ORDERED: SODIUM CHLORIDE FLUSH 10ML SYR IVF ONE (08:30)
[2017-12-29] MEDS ORDERED: NITROGLYCERIN SINGLE TAB 0.4 MG SL ONE (08:32)
[2017-12-29] MEDS ORDERED: ASPIRIN 81 MG TABLET CHEW ONE (08:32)
[2017-12-29] MEDS ORDERED: MORPHINE SULFATE 4 MG/ML, 1ML ONE ×2 (08:32→11:40)
[2017-12-29 08:40] LABS: BASOPHILS # (AUTO) 0.04 x10^3/uL (0-0.1); BASOPHILS % (AUTO) 0 % (0-1); EOSINOPHILS # (AUTO) 0.09 x10^3/uL (0-0.4); EOSINOPHILS % (AUTO) 1 % (1-7); LYMPHOCYTES # (AUTO) 1.52 x10^3/uL (1-3.4); LYMPHOCYTES % (AUTO) 15 % (22-44); MD NO; MEAN CORPUSCULAR HEMOGLOBIN 31.2 pg (27.5-34.5); MEAN CORPUSCULAR HGB CONC 33.4 g/dL (33.2-36.2); MEAN CORPUSCULAR VOLUME 93.4 fL (81-97); MEAN PLATELET VOLUME 8.3 fL (7.4-10.4); MONOCYTES # (AUTO) 0.57 x10^3/uL (0.2-0.8); MONOCYTES % (AUTO) 6 % (2-9); NEUTROPHILS # (AUTO) 7.93 x10^3/uL (1.8-6.8); NEUTROPHILS % (AUTO) 78 % (42-75); PLATELET COUNT 212 x10^3/uL (130-400); RED BLOOD COUNT 4.61 x10^6/uL (4.38-5.82); RED CELL DISTRIBUTION WIDTH 13.9 % (9.4-14.8)
[2017-12-29 08:48] LABS: ALANINE AMINOTRANSFERASE 28 U/L (12-78); ALBUMIN 3.7 g/dL (3.4-5.0); ANION GAP 12 mmol/L (5-15); CALCIUM 8.6 mg/dL (8.5-10.1); CHLORIDE 107 mmol/L (98-107); CREATININE 1.08 mg/dL (0.7-1.3)
[2017-12-29 08:53] LABS: ALKALINE PHOSPHATASE 92 U/L (45-117); BILIRUBIN,TOTAL 0.6 mg/dL (0.2-1.0); TOTAL PROTEIN 7.9 g/dL (6.4-8.2); TROPONIN I < 0.015 ng/mL (0.000-0.045)
[2017-12-29] MEDS: NITROGLYCERIN SINGLE TAB 0.4 MG SL PRN ×2 (09:08→09:55)
[2017-12-29] MEDS ORDERED: HEPARIN 5,000 UNITS/ML, 1ML IV ONE (11:00)
[2017-12-29] MEDS ORDERED: HEPARIN 5,000 UNITS/ML, 1ML IV PRN (11:00)
[2017-12-29] MEDS ORDERED: HEPARIN 25,000 UNITS/500ML PMX 500 ML IV PRN (11:00)
[2017-12-29] MEDS ORDERED: HEPARIN 5,000 UNITS/ML, 1ML ONE (11:39)
[2017-12-29 11:53] VITALS: BP 131/89
[2017-12-29] MEDS: RANOLAZINE 500 MG TAB.ER.12H PO SCH ×2 (12:55→21:01)
[2017-12-29] MEDS: ISOSORBIDE MONONITRATE ER 30 MG TABLET PO SCH (12:57)
[2017-12-29] MEDS ORDERED: ONDANSETRON 2MG/ML, 2ML IVPush PRN (13:30)
[2017-12-29] MEDS ORDERED: ONDANSETRON ODT 4 MG PO PRN (13:30)
[2017-12-29 14:06] VITALS: BP 147/103
[2017-12-29 14:19] VITALS: BP 151/98
[2017-12-29] MEDS: ENOXAPARIN 40 MG/0.4 ML SQ SCH (14:46)
[2017-12-29] MEDS: GABAPENTIN 300 MG CAPSULE PO SCH ×2 (14:46→21:01)
[2017-12-29 15:30] LABS: TROPONIN I < 0.015 ng/mL (0.000-0.045)
[2017-12-29 20:24] VITALS: BP 133/89
[2017-12-29 20:52] LABS: TROPONIN I < 0.015 ng/mL (0.000-0.045)
[2017-12-29] MEDS: ACETAMINOPHEN 325 MG TABLET PO PRN (21:01)
[2017-12-29] MEDS: ATORVASTATIN 40 MG TABLET PO SCH (21:01)
[2017-12-29] MEDS: QUETIAPINE 100MG TABLET PO SCH (21:19)
[2017-12-30 02:05] VITALS: BP 137/81
[2017-12-30 05:57] LABS: BASOPHILS # (AUTO) 0.03 x10^3/uL (0-0.1); BASOPHILS % (AUTO) 0 % (0-1); EOSINOPHILS # (AUTO) 0.18 x10^3/uL (0-0.4); EOSINOPHILS % (AUTO) 2 % (1-7); LYMPHOCYTES # (AUTO) 2.22 x10^3/uL (1-3.4); LYMPHOCYTES % (AUTO) 27 % (22-44); MD NO; MEAN CORPUSCULAR HEMOGLOBIN 30.7 pg (27.5-34.5); MEAN CORPUSCULAR HGB CONC 32.5 g/dL (33.2-36.2); MEAN CORPUSCULAR VOLUME 94.6 fL (81-97); MEAN PLATELET VOLUME 7.8 fL (7.4-10.4); MONOCYTES # (AUTO) 0.81 x10^3/uL (0.2-0.8); MONOCYTES % (AUTO) 10 % (2-9); NEUTROPHILS # (AUTO) 5.04 x10^3/uL (1.8-6.8); NEUTROPHILS % (AUTO) 61 % (42-75); PLATELET COUNT 171 x10^3/uL (130-400); RED BLOOD COUNT 3.88 x10^6/uL (4.38-5.82); RED CELL DISTRIBUTION WIDTH 13.9 % (9.4-14.8)
[2017-12-30 06:04] LABS: ALBUMIN 3.2 g/dL (3.4-5.0); ANION GAP 6 mmol/L (5-15); CALCIUM 8.3 mg/dL (8.5-10.1); CHLORIDE 108 mmol/L (98-107)
[2017-12-30 06:07] LABS: ALANINE AMINOTRANSFERASE 24 U/L (12-78); ALKALINE PHOSPHATASE 73 U/L (45-117); BILIRUBIN,TOTAL 0.6 mg/dL (0.2-1.0); CREATININE 1.05 mg/dL (0.7-1.3); TOTAL PROTEIN 6.5 g/dL (6.4-8.2)
[2017-12-30 07:10] VITALS: BP 170/95
[2017-12-30] MEDS: CLOPIDOGREL 75 MG TABLET PO SCH (07:51)
[2017-12-30] MEDS: RANOLAZINE 500 MG TAB.ER.12H PO SCH ×2 (07:51→21:19)
[2017-12-30] MEDS: CITALOPRAM 20 MG TABLET PO SCH (07:51)
[2017-12-30] MEDS: OMEPRAZOLE 20 MG CAPSULE.DR PO SCH (07:51)
[2017-12-30] MEDS: LISINOPRIL 10 MG TABLET PO SCH (07:51)
[2017-12-30] MEDS: ASPIRIN 81 MG TABLET EC PO SCH (07:51)
[2017-12-30] MEDS: GABAPENTIN 300 MG CAPSULE PO SCH ×3 (07:51→21:19)
[2017-12-30] MEDS: ISOSORBIDE MONONITRATE ER 30 MG TABLET PO SCH (07:51)
[2017-12-30] MEDS: METOPROLOL SUCCINATE 100 MG TAB.ER.24H PO SCH (07:52)
[2017-12-30 13:45] VITALS: BP 128/87
[2017-12-30] MEDS: ENOXAPARIN 40 MG/0.4 ML SQ SCH (14:33)
[2017-12-30 15:05] LABS: CLOSTRIDIUM DIFFICILE ANTIGEN NEGATIVE; CLOSTRIDIUM DIFFICILE TOXIN NEGATIVE (Negative)
[2017-12-30] MEDS ORDERED: MAALOX/HYOSCYAMINE/LIDOCAINE 45 ML BTL PO ONE (16:30)
[2017-12-30] MEDS: SIMETHICONE 80 MG CHEW TAB PO PRN (18:13)
[2017-12-30 19:13] VITALS: BP 118/56
[2017-12-30] MEDS: ATORVASTATIN 40 MG TABLET PO SCH (21:19)
[2017-12-30] MEDS: QUETIAPINE 100MG TABLET PO SCH (21:19)
[2017-12-30] MEDS: ACETAMINOPHEN 325 MG TABLET PO PRN (21:21)
[2017-12-31 02:45] VITALS: BP 122/62
[2017-12-31 06:55] VITALS: BP 131/84
[2017-12-31 07:42] VITALS: BP_SYST 132; BP_SYST 176; BP_DIAS 88; BP_DIAS 99
[2017-12-31] MEDS: SIMETHICONE 80 MG CHEW TAB PO PRN (07:44)
[2017-12-31] MEDS: METOPROLOL SUCCINATE 100 MG TAB.ER.24H PO SCH (07:45)
[2017-12-31] MEDS: OMEPRAZOLE 20 MG CAPSULE.DR PO SCH (07:45)
[2017-12-31] MEDS: ASPIRIN 81 MG TABLET EC PO SCH (07:45)
[2017-12-31] MEDS: GABAPENTIN 300 MG CAPSULE PO SCH (07:45)
[2017-12-31] MEDS: CLOPIDOGREL 75 MG TABLET PO SCH (07:45)
[2017-12-31] MEDS: RANOLAZINE 500 MG TAB.ER.12H PO SCH (07:45)
[2017-12-31] MEDS: CITALOPRAM 20 MG TABLET PO SCH (07:45)
[2017-12-31] MEDS: ISOSORBIDE MONONITRATE ER 30 MG TABLET PO SCH (07:45)
[2017-12-31] MEDS: LISINOPRIL 10 MG TABLET PO SCH (07:46)
[2017-12-31] MEDS ORDERED: MAALOX/HYOSCYAMINE/LIDOCAINE 45 ML BTL PO ONE (10:00)
[2017-12-31] MEDS ORDERED: ISOS60TA36 PO (13:47)
[2017-12-31 14:00] VITALS: BP 126/84
[2017-12-31] MEDS: ENOXAPARIN 40 MG/0.4 ML SQ SCH (14:22)
[2018-01-01] MEDS ORDERED: ISOSORBIDE MONONITRATE ER 60 MG TABLET PO SCH (09:00)
== END 2017-12-31 16:43 | disposition home or self-care (01) | DRG 303 ==
LOC: ED 09:17 → EDIP 10:25 → 5SO 11:45 → DCLOUNGE 12-31 16:25
PROVIDERS: ADMIT Hospitalist; ATTEND Hospitalist
DX: I25.10 Atherosclerotic heart disease of native coronary artery without angina pectoris (principal); F31.9 Bipolar disorder, unspecified; E66.9 Obesity, unspecified; F41.9 Anxiety disorder, unspecified; D72.829 Elevated white blood cell count, unspecified; E11.9 Type 2 diabetes mellitus without complications; I25.82 Chronic total occlusion of coronary artery; I50.9 Heart failure, unspecified; R19.7 Diarrhea, unspecified; K21.9 Gastro-esophageal reflux disease without esophagitis; E78.00 Pure hypercholesterolemia, unspecified; E78.5 Hyperlipidemia, unspecified; F12.90 Cannabis use, unspecified, uncomplicated; G89.4 Chronic pain syndrome; I11.0 Hypertensive heart disease with heart failure; I25.5 Ischemic cardiomyopathy; Z95.810 Presence of automatic (implantable) cardiac defibrillator; Z68.29 Body mass index [BMI] 29.0-29.9, adult; I25.2 Old myocardial infarction; Z79.82 Long term (current) use of aspirin; Z79.84 Long term (current) use of oral hypoglycemic drugs; Z82.49 Family history of ischemic heart disease and other diseases of the circulatory system; Z86.718 Personal history of other venous thrombosis and embolism; Z87.891 Personal history of nicotine dependence; Z91.14 Patient's other noncompliance with medication regimen; Z91.5 Personal history of self-harm; Z95.5 Presence of coronary angioplasty implant and graft; Z95.1 Presence of aortocoronary bypass graft; Z90.49 Acquired absence of other specified parts of digestive tract
CPT/HCPCS: 36415; 71045; 80053; 83690; 84484; 85025; 85520; 87324; 93005; J1650; J2405; Q0162; J7030

== ENCOUNTER 2018-02-07 08:10 | Inpatient (IN) | payer MEDICARE, MEDICAID ==
[~2018-02-07] VITALS: Ht 165.1 cm; Wt 83.5 kg
[~2018-02-07 08:10] MED LIST changes: +ISOS60TA36 PO
[2018-02-07] MEDS ORDERED: PLEASE ENTER HEIGHT AND WEIGHT MC SCH (08:30)
[2018-02-07] MEDS ORDERED: SODIUM CHLORIDE FLUSH 10ML SYR IVF ONE (08:30)
[2018-02-07] MEDS ORDERED: NITROGLYCERIN SINGLE TAB 0.4 MG SL ONE (08:30)
[2018-02-07 08:34] LABS: BASOPHILS # (AUTO) 0.06 x10^3/uL (0-0.1); BASOPHILS % (AUTO) 0 % (0-1); EOSINOPHILS # (AUTO) 0.11 x10^3/uL (0-0.4); EOSINOPHILS % (AUTO) 1 % (1-7); LYMPHOCYTES # (AUTO) 1.82 x10^3/uL (1-3.4); LYMPHOCYTES % (AUTO) 14 % (22-44); MD NO; MEAN CORPUSCULAR HEMOGLOBIN 30.6 pg (27.5-34.5); MEAN CORPUSCULAR HGB CONC 33.2 g/dL (33.2-36.2); MEAN CORPUSCULAR VOLUME 92.1 fL (81-97); MEAN PLATELET VOLUME 8.3 fL (7.4-10.4); MONOCYTES # (AUTO) 0.69 x10^3/uL (0.2-0.8); MONOCYTES % (AUTO) 5 % (2-9); NEUTROPHILS % (AUTO) 79 % (42-75); PLATELET COUNT 257 x10^3/uL (130-400); RED BLOOD COUNT 5.07 x10^6/uL (4.38-5.82); RED CELL DISTRIBUTION WIDTH 13.8 % (9.4-14.8)
[2018-02-07] MEDS: NITROGLYCERIN SINGLE TAB 0.4 MG SL PRN ×3 (08:35→10:58)
[2018-02-07 08:48] LABS: ALANINE AMINOTRANSFERASE 26 U/L (12-78); ALBUMIN 3.9 g/dL (3.4-5.0); ANION GAP 8 mmol/L (5-15); CALCIUM 8.8 mg/dL (8.5-10.1); CHLORIDE 109 mmol/L (98-107); INTERNATIONAL NORMALIZED RATIO 1.04 (0.93-1.1); PROTHROMBIN TIME 10.8 Seconds (9.6-11.5)
[2018-02-07 08:52] LABS: ALKALINE PHOSPHATASE 98 U/L (45-117); BILIRUBIN,TOTAL 0.6 mg/dL (0.2-1.0); TOTAL PROTEIN 8.1 g/dL (6.4-8.2); TROPONIN I < 0.015 ng/mL (0.000-0.045)
[2018-02-07 13:00] LABS: TROPONIN I < 0.015 ng/mL (0.000-0.045)
[2018-02-07 13:05] LABS: THYROID STIMULATING HORMONE 0.423 mIU/L (0.358-3.740)
[2018-02-07 13:20] VITALS: BP 145/94
[2018-02-07] MEDS: ENOXAPARIN 30 MG/0.3 ML SQ SCH (13:55)
[2018-02-07] MEDS: LISINOPRIL 10 MG TABLET PO SCH (13:55)
[2018-02-07] MEDS: ISOSORBIDE MONONITRATE ER 60 MG TABLET PO SCH (13:55)
[2018-02-07 14:50] VITALS: BP 143/99
[2018-02-07] MEDS: ONDANSETRON ODT 4 MG PO PRN (14:50)
[2018-02-07] MEDS: GABAPENTIN 300 MG CAPSULE PO SCH ×2 (14:50→20:30)
[2018-02-07] MEDS ORDERED: PROMETHAZINE 25MG TABLET PO PRN (16:00)
[2018-02-07] MEDS ORDERED: PROCHLORPERAZINE 10MG TABLET PO PRN (16:00)
[2018-02-07 17:33] LABS: AMPHETAMINE SCREEN, URINE Negative (Negative); BARBITURATE SCREEN, URINE Negative (Negative); BENZODIAZEPINE SCREEN, URINE Negative (Negative); CANNABINOID SCREEN, URINE Positive (Negative); COCAINE SCREEN, URINE Negative (Negative); METHADONE SCREEN, URINE Negative (Negative); OPIATE SCREEN, URINE Negative (Negative)
[2018-02-07 18:44] LABS: TROPONIN I < 0.015 ng/mL (0.000-0.045)
[2018-02-07 20:00] VITALS: BP 132/85
[2018-02-07] MEDS: RANOLAZINE 500 MG HOMEMEDPO SCH (20:30)
[2018-02-07 20:43] LABS: CLOSTRIDIUM DIFFICILE ANTIGEN NEGATIVE; CLOSTRIDIUM DIFFICILE TOXIN NEGATIVE (Negative)
[2018-02-07] MEDS ORDERED: QUETIAPINE 100MG TABLET PO SCH (21:00)
[2018-02-07] MEDS ORDERED: ATORVASTATIN 40 MG TABLET PO SCH (21:00)
[2018-02-08] MEDS: ENOXAPARIN 30 MG/0.3 ML SQ SCH ×2 (00:34→13:04)
[2018-02-08 02:00] VITALS: BP 131/72
[2018-02-08 05:21] LABS: ALBUMIN 3.6 g/dL (3.4-5.0); ANION GAP 11 mmol/L (5-15); CALCIUM 8.6 mg/dL (8.5-10.1); CHLORIDE 107 mmol/L (98-107)
[2018-02-08 05:24] LABS: ALANINE AMINOTRANSFERASE 23 U/L (12-78); ALKALINE PHOSPHATASE 82 U/L (45-117); BILIRUBIN,TOTAL 0.5 mg/dL (0.2-1.0); TOTAL PROTEIN 7.1 g/dL (6.4-8.2)
[2018-02-08 05:45] LABS: BASOPHILS # (AUTO) 0.03 x10^3/uL (0-0.1); BASOPHILS % (AUTO) 0 % (0-1); EOSINOPHILS # (AUTO) 0.15 x10^3/uL (0-0.4); EOSINOPHILS % (AUTO) 1 % (1-7); LYMPHOCYTES % (AUTO) 26 % (22-44); MD NO; MEAN CORPUSCULAR HEMOGLOBIN 31.2 pg (27.5-34.5); MEAN CORPUSCULAR HGB CONC 33.8 g/dL (33.2-36.2); MEAN CORPUSCULAR VOLUME 92.5 fL (81-97); MEAN PLATELET VOLUME 8.7 fL (7.4-10.4); MONOCYTES # (AUTO) 1.38 x10^3/uL (0.2-0.8); MONOCYTES % (AUTO) 11 % (2-9); NEUTROPHILS # (AUTO) 8.04 x10^3/uL (1.8-6.8); NEUTROPHILS % (AUTO) 62 % (42-75); PLATELET COUNT 223 x10^3/uL (130-400); RED CELL DISTRIBUTION WIDTH 14.2 % (9.4-14.8)
[2018-02-08] MEDS ORDERED: SODIUM CHLORIDE 0.9% 500 ML IV SCH (08:00)
[2018-02-08 08:47] VITALS: BP 103/69
[2018-02-08] MEDS: GABAPENTIN 300 MG CAPSULE PO SCH (08:58)
[2018-02-08] MEDS: ONDANSETRON ODT 4 MG PO PRN (08:59)
[2018-02-08] MEDS ORDERED: OMEPRAZOLE 20 MG CAPSULE.DR PO SCH (09:00)
[2018-02-08] MEDS: LISINOPRIL 10 MG TABLET PO SCH (09:00)
[2018-02-08] MEDS: ISOSORBIDE MONONITRATE ER 60 MG TABLET PO SCH (09:00)
[2018-02-08] MEDS ORDERED: ASPIRIN 81 MG TABLET EC PO SCH (09:00)
[2018-02-08] MEDS ORDERED: CLOPIDOGREL 75 MG TABLET PO SCH (09:00)
[2018-02-08] MEDS ORDERED: CITALOPRAM 20 MG TABLET PO SCH (09:00)
[2018-02-08] MEDS ORDERED: METOPROLOL SUCCINATE 100 MG TAB.ER.24H PO SCH (09:00)
[2018-02-08] MEDS: RANOLAZINE 500 MG HOMEMEDPO SCH (09:01)
[2018-02-08] MEDS ORDERED: MAALOX/HYOSCYAMINE/LIDOCAINE 45 ML BTL PO ONE (11:00)
[2018-02-08 14:00] VITALS: BP 120/83
== END 2018-02-08 16:26 | disposition home or self-care (01) | DRG 303 ==
LOC: ED 09:55 → EDIP 11:45 → 5SO 13:04 → DCLOUNGE 02-08 16:16
PROVIDERS: ADMIT Hospitalist; ATTEND Hospitalist
DX: I25.10 Atherosclerotic heart disease of native coronary artery without angina pectoris (principal); I42.8 Other cardiomyopathies; F12.90 Cannabis use, unspecified, uncomplicated; F17.200 Nicotine dependence, unspecified, uncomplicated; F31.9 Bipolar disorder, unspecified; I25.5 Ischemic cardiomyopathy; D72.829 Elevated white blood cell count, unspecified; E11.9 Type 2 diabetes mellitus without complications; E78.00 Pure hypercholesterolemia, unspecified; E78.5 Hyperlipidemia, unspecified; G89.29 Other chronic pain; I11.0 Hypertensive heart disease with heart failure; I25.2 Old myocardial infarction; I50.9 Heart failure, unspecified; K21.9 Gastro-esophageal reflux disease without esophagitis; Z82.49 Family history of ischemic heart disease and other diseases of the circulatory system; Z86.718 Personal history of other venous thrombosis and embolism; Z91.19 Patient's noncompliance with other medical treatment and regimen; Z95.1 Presence of aortocoronary bypass graft; Z95.5 Presence of coronary angioplasty implant and graft; Z95.810 Presence of automatic (implantable) cardiac defibrillator
CPT/HCPCS: 36415; 71045; 76700; 80053; 80307; 82962; 83690; 83735; 84100; 84443; 84484; 85025; 85610; 87324; 93005; 99285; J1650; Q0162; Q0164; J7040

== ENCOUNTER 2018-03-08 09:06 | Emergency (ER) | payer MEDICARE, MEDICAID ==
[~2018-03-08] VITALS: Ht 160 cm; Wt 83.3 kg
[~2018-03-08 09:06] MED LIST changes: +ATOR10TA9 PO; -SPIR25TA3 PO; +SPIR25TA5 PO
[2018-03-08 10:05] LABS: TROPONIN I < 0.015 ng/mL (0.000-0.045)
[2018-03-08 10:26] LABS: BASOPHILS # (AUTO) 0.06 x10^3/uL (0-0.1); BASOPHILS % (AUTO) 1 % (0-1); EOSINOPHILS # (AUTO) 0.08 x10^3/uL (0-0.4); EOSINOPHILS % (AUTO) 1 % (1-7); LYMPHOCYTES # (AUTO) 1.57 x10^3/uL (1-3.4); LYMPHOCYTES % (AUTO) 14 % (22-44); MD NO; MEAN CORPUSCULAR HEMOGLOBIN 31.5 pg (27.5-34.5); MEAN CORPUSCULAR HGB CONC 34.2 g/dL (33.2-36.2); MEAN CORPUSCULAR VOLUME 92.3 fL (81-97); MONOCYTES % (AUTO) 6 % (2-9); NEUTROPHILS % (AUTO) 79 % (42-75); PLATELET COUNT 235 x10^3/uL (130-400); RED CELL DISTRIBUTION WIDTH 14.3 % (9.4-14.8)
[2018-03-08 10:37] LABS: ALBUMIN 3.7 g/dL (3.4-5.0); ANION GAP 6 mmol/L (5-15); CALCIUM 8.7 mg/dL (8.5-10.1); CHLORIDE 107 mmol/L (98-107); CREATININE 1.29 mg/dL (0.7-1.3)
[2018-03-08 10:49] VITALS: BP 180/78
== END 2018-03-08 11:39 | disposition home or self-care (01) ==
LOC: ED 10:11
DX: R07.89 Other chest pain (principal); I25.2 Old myocardial infarction; I50.9 Heart failure, unspecified; I11.0 Hypertensive heart disease with heart failure; I25.10 Atherosclerotic heart disease of native coronary artery without angina pectoris; E11.9 Type 2 diabetes mellitus without complications; E78.00 Pure hypercholesterolemia, unspecified
CPT/HCPCS: 36415; 80048; 82040; 84484; 85025; 93005; 99285

== ENCOUNTER 2018-04-18 07:08 | Emergency (ER) | payer MEDICARE, MEDICAID ==
[~2018-04-18] VITALS: Ht 165.1 cm; Wt 83.5 kg
[~2018-04-18 07:08] MED LIST changes: -AMLO10TA2 PO; +AMLO10TA6 PO; -SENN1TAB7 PO; +SENN1TAB8 PO
[2018-04-18] MEDS ORDERED: ASPIRIN 81 MG TABLET CHEW ONE (07:30)
[2018-04-18] MEDS ORDERED: NITROGLYCERIN SINGLE TAB 0.4 MG SL ONE (07:30)
[2018-04-18] MEDS ORDERED: NITROGLYCERIN SINGLE TAB 0.4 MG SL PRN (07:30)
[2018-04-18] MEDS ORDERED: ASPIRIN 81 MG TABLET CHEW PO ONE (07:30)
[2018-04-18 07:52] LABS: BASOPHILS # (AUTO) 0.03 x10^3/uL (0-0.1); BASOPHILS % (AUTO) 0 % (0-1); EOSINOPHILS # (AUTO) 0.12 x10^3/uL (0-0.4); EOSINOPHILS % (AUTO) 1 % (1-7); LYMPHOCYTES # (AUTO) 1.63 x10^3/uL (1-3.4); LYMPHOCYTES % (AUTO) 15 % (22-44); MD NO; MEAN CORPUSCULAR HEMOGLOBIN 31.1 pg (27.5-34.5); MEAN CORPUSCULAR HGB CONC 33.7 g/dL (33.2-36.2); MEAN CORPUSCULAR VOLUME 92.3 fL (81-97); MEAN PLATELET VOLUME 8.4 fL (7.4-10.4); MONOCYTES # (AUTO) 0.62 x10^3/uL (0.2-0.8); MONOCYTES % (AUTO) 6 % (2-9); NEUTROPHILS # (AUTO) 8.46 x10^3/uL (1.8-6.8); NEUTROPHILS % (AUTO) 78 % (42-75); PLATELET COUNT 208 x10^3/uL (130-400); RED CELL DISTRIBUTION WIDTH 14.5 % (9.4-14.8)
[2018-04-18 08:04] LABS: ALANINE AMINOTRANSFERASE 19 U/L (12-78); ALBUMIN 3.8 g/dL (3.4-5.0); ANION GAP 11 mmol/L (5-15); CALCIUM 8.3 mg/dL (8.5-10.1); CHLORIDE 110 mmol/L (98-107); CREATININE 1.08 mg/dL (0.7-1.3)
[2018-04-18 08:09] LABS: ALKALINE PHOSPHATASE 103 U/L (45-117); BILIRUBIN,TOTAL 0.5 mg/dL (0.2-1.0); TOTAL PROTEIN 7.8 g/dL (6.4-8.2); TROPONIN I < 0.015 ng/mL (0.000-0.045)
[2018-04-18 08:21] LABS: INTERNATIONAL NORMALIZED RATIO 1.03 (0.93-1.1); PROTHROMBIN TIME 10.7 Seconds (9.6-11.5)
[2018-04-18] MEDS ORDERED: MORPHINE SULFATE 4 MG/ML, 1ML IVPush PRN (09:00)
[2018-04-18] MEDS ORDERED: MORPHINE SULFATE 4 MG/ML, 1ML ONE (09:22)
[2018-04-18] MEDS ORDERED: MAALOX/HYOSCYAMINE/LIDOCAINE 45 ML BTL PO ONE (10:00)
[2018-04-18] MEDS ORDERED: MAALOX/HYOSCYAMINE/LIDOCAINE 45 ML BTL ONE (10:02)
[2018-04-18 10:13] VITALS: BP 150/87
== END 2018-04-18 10:16 | disposition home or self-care (01) ==
LOC: ED 08:46
DX: R10.13 Epigastric pain (principal); K21.9 Gastro-esophageal reflux disease without esophagitis; E78.00 Pure hypercholesterolemia, unspecified; I11.0 Hypertensive heart disease with heart failure; I50.9 Heart failure, unspecified; E11.9 Type 2 diabetes mellitus without complications; I25.2 Old myocardial infarction; Z90.49 Acquired absence of other specified parts of digestive tract
CPT/HCPCS: 36415; 71045; 80053; 83690; 84484; 85025; 85610; 93005; 96374

== ENCOUNTER 2018-04-19 13:57 | Emergency (ER) | payer MEDICARE, MEDICAID ==
[~2018-04-19] VITALS: Ht 165.1 cm; Wt 84.0 kg
[2018-04-19 14:15] VITALS: BP 117/85
[2018-04-19 14:26] LABS: BASOPHILS # (AUTO) 0.04 x10^3/uL (0-0.1); BASOPHILS % (AUTO) 0 % (0-1); EOSINOPHILS # (AUTO) 0.07 x10^3/uL (0-0.4); EOSINOPHILS % (AUTO) 1 % (1-7); LYMPHOCYTES # (AUTO) 2.04 x10^3/uL (1-3.4); LYMPHOCYTES % (AUTO) 20 % (22-44); MD NO; MEAN CORPUSCULAR HEMOGLOBIN 30.9 pg (27.5-34.5); MEAN CORPUSCULAR HGB CONC 33.5 g/dL (33.2-36.2); MEAN CORPUSCULAR VOLUME 92.1 fL (81-97); MEAN PLATELET VOLUME 8.2 fL (7.4-10.4); MONOCYTES # (AUTO) 0.62 x10^3/uL (0.2-0.8); MONOCYTES % (AUTO) 6 % (2-9); NEUTROPHILS # (AUTO) 7.67 x10^3/uL (1.8-6.8); NEUTROPHILS % (AUTO) 73 % (42-75); PLATELET COUNT 205 x10^3/uL (130-400); RED BLOOD COUNT 4.53 x10^6/uL (4.38-5.82); RED CELL DISTRIBUTION WIDTH 15.1 % (9.4-14.8)
[2018-04-19] MEDS ORDERED: SODIUM CHLORIDE FLUSH 10ML SYR IVF ONE (14:30)
[2018-04-19] MEDS ORDERED: MORPHINE SULFATE 4 MG/ML, 1ML IVPush PRN (14:30)
[2018-04-19] MEDS ORDERED: ONDANSETRON 2MG/ML, 2ML IVPush ONE (14:30)
[2018-04-19 14:32] LABS: ALANINE AMINOTRANSFERASE 19 U/L (12-78); ALBUMIN 3.7 g/dL (3.4-5.0); ANION GAP 11 mmol/L (5-15); CALCIUM 8.7 mg/dL (8.5-10.1); CHLORIDE 107 mmol/L (98-107)
[2018-04-19 14:34] LABS: ALKALINE PHOSPHATASE 102 U/L (45-117); BILIRUBIN,TOTAL 0.6 mg/dL (0.2-1.0); TOTAL PROTEIN 7.8 g/dL (6.4-8.2)
[2018-04-19] MEDS ORDERED: MORPHINE SULFATE 4 MG/ML, 1ML ONE (14:38)
[2018-04-19] MEDS ORDERED: ONDANSETRON ODT 4 MG ONE (14:38)
[2018-04-19] MEDS ORDERED: ONDANSETRON ODT 4 MG PO ONE (15:00)
[2018-04-19] MEDS ORDERED: OMNIPAQUE 350 MG/ML, 100ML BOTTLE ONE (15:25)
== END 2018-04-19 16:37 | disposition home or self-care (01) ==
LOC: ED 14:59
DX: R10.84 Generalized abdominal pain (principal); I11.0 Hypertensive heart disease with heart failure; I25.2 Old myocardial infarction; I50.9 Heart failure, unspecified; E11.21 Type 2 diabetes mellitus with diabetic nephropathy; K21.9 Gastro-esophageal reflux disease without esophagitis; I25.810 Atherosclerosis of coronary artery bypass graft(s) without angina pectoris; R11.2 Nausea with vomiting, unspecified; Z95.0 Presence of cardiac pacemaker; Z90.49 Acquired absence of other specified parts of digestive tract
CPT/HCPCS: 36415; 74177; 80053; 83605; 83690; 85025; 93005; 96374; 99285; Q0162; Q9967

== ENCOUNTER 2018-04-20 11:07 | Emergency (ER) | payer MEDICARE, MEDICAID ==
[~2018-04-20] VITALS: Ht 165.1 cm; Wt 82.6 kg
[2018-04-20] MEDS ORDERED: SODIUM CHLORIDE FLUSH 10ML SYR IVF ONE (11:30)
[2018-04-20 12:05] LABS: BASOPHILS # (AUTO) 0.03 x10^3/uL (0-0.1); BASOPHILS % (AUTO) 0 % (0-1); EOSINOPHILS # (AUTO) 0.02 x10^3/uL (0-0.4); EOSINOPHILS % (AUTO) 0 % (1-7); LYMPHOCYTES # (AUTO) 1.72 x10^3/uL (1-3.4); LYMPHOCYTES % (AUTO) 17 % (22-44); MD NO; MEAN CORPUSCULAR HEMOGLOBIN 31.4 pg (27.5-34.5); MEAN CORPUSCULAR HGB CONC 33.7 g/dL (33.2-36.2); MEAN CORPUSCULAR VOLUME 93.2 fL (81-97); MEAN PLATELET VOLUME 8.4 fL (7.4-10.4); MONOCYTES % (AUTO) 6 % (2-9); NEUTROPHILS # (AUTO) 7.67 x10^3/uL (1.8-6.8); NEUTROPHILS % (AUTO) 76 % (42-75); PLATELET COUNT 227 x10^3/uL (130-400); RED BLOOD COUNT 4.84 x10^6/uL (4.38-5.82); RED CELL DISTRIBUTION WIDTH 14.8 % (9.4-14.8)
[2018-04-20 12:17] LABS: ALBUMIN 4.2 g/dL (3.4-5.0); ANION GAP 12 mmol/L (5-15); CHLORIDE 105 mmol/L (98-107)
[2018-04-20 12:22] LABS: ALANINE AMINOTRANSFERASE 23 U/L (12-78); ALKALINE PHOSPHATASE 108 U/L (45-117); BILIRUBIN,TOTAL 0.5 mg/dL (0.2-1.0); CREATININE 1.27 mg/dL (0.7-1.3); TOTAL PROTEIN 8.5 g/dL (6.4-8.2)
[2018-04-20 12:59] LABS: MICROSCOPIC AUTO
[2018-04-20 13:04] LABS: CULTURE INDICATED? NO
[2018-04-20 13:21] LABS: TROPONIN I < 0.015 ng/mL (0.000-0.045)
[2018-04-20] MEDS ORDERED: LORazepam 2 MG/ML, 1ML IVPush ONE (13:30)
[2018-04-20] MEDS ORDERED: KETOROLAC 30 MG/1 ML IVPush ONE (13:30)
[2018-04-20] MEDS ORDERED: KETOROLAC 30 MG/1 ML ONE (13:34)
[2018-04-20] MEDS ORDERED: LORazepam 2 MG/ML, 1ML ONE (13:35)
[2018-04-20 14:00] VITALS: BP 117/88
== END 2018-04-20 14:44 | disposition home or self-care (01) ==
LOC: ED 14:03
DX: R10.13 Epigastric pain (principal); R10.11 Right upper quadrant pain; E78.00 Pure hypercholesterolemia, unspecified; I25.2 Old myocardial infarction; F32.9 Major depressive disorder, single episode, unspecified; E11.9 Type 2 diabetes mellitus without complications; I11.0 Hypertensive heart disease with heart failure; I50.9 Heart failure, unspecified; E78.5 Hyperlipidemia, unspecified
CPT/HCPCS: 36415; 80053; 81001; 83690; 84484; 85025; 93005; 96374; 96375; 99285; J1885; J2060

== ENCOUNTER 2018-05-06 19:55 | Emergency (ER) | payer MEDICARE, MEDICAID ==
[~2018-05-06] VITALS: Ht 165.1 cm; Wt 84.0 kg
[2018-05-06] MEDS ORDERED: KETOROLAC 30 MG/1 ML IVPush ONE (20:30)
[2018-05-06] MEDS ORDERED: SODIUM CHLORIDE FLUSH 10ML SYR IVF ONE (20:30)
[2018-05-06 20:43] LABS: BASOPHILS # (AUTO) 0.04 x10^3/uL (0-0.1); BASOPHILS % (AUTO) 1 % (0-1); EOSINOPHILS # (AUTO) 0.17 x10^3/uL (0-0.4); EOSINOPHILS % (AUTO) 2 % (1-7); LYMPHOCYTES # (AUTO) 2.12 x10^3/uL (1-3.4); LYMPHOCYTES % (AUTO) 22 % (22-44); MD NO; MEAN CORPUSCULAR HEMOGLOBIN 31.2 pg (27.5-34.5); MEAN CORPUSCULAR HGB CONC 33.6 g/dL (33.2-36.2); MEAN PLATELET VOLUME 8.4 fL (7.4-10.4); MONOCYTES % (AUTO) 7 % (2-9); NEUTROPHILS # (AUTO) 6.56 x10^3/uL (1.8-6.8); NEUTROPHILS % (AUTO) 68 % (42-75); PLATELET COUNT 205 x10^3/uL (130-400); RED CELL DISTRIBUTION WIDTH 14.1 % (9.4-14.8)
[2018-05-06 20:55] LABS: ALANINE AMINOTRANSFERASE 18 U/L (12-78); ALBUMIN 3.4 g/dL (3.4-5.0); ANION GAP 11 mmol/L (5-15); CALCIUM 8.7 mg/dL (8.5-10.1); CHLORIDE 106 mmol/L (98-107); CREATININE 1.04 mg/dL (0.7-1.3)
[2018-05-06 20:57] LABS: ALKALINE PHOSPHATASE 95 U/L (45-117); BILIRUBIN,TOTAL 0.5 mg/dL (0.2-1.0); TOTAL PROTEIN 7.3 g/dL (6.4-8.2)
[2018-05-06] MEDS ORDERED: KETOROLAC 30 MG/1 ML ONE (21:00)
[2018-05-06 21:28] LABS: MICROSCOPIC NOT IND
[2018-05-06 21:30] LABS: CULTURE INDICATED? NO
[2018-05-06 21:48] VITALS: BP 131/74
== END 2018-05-06 22:20 | disposition home or self-care (01) ==
LOC: ED 22:01
DX: R10.11 Right upper quadrant pain (principal); R10.13 Epigastric pain; E78.5 Hyperlipidemia, unspecified; I11.0 Hypertensive heart disease with heart failure; I50.9 Heart failure, unspecified; E78.00 Pure hypercholesterolemia, unspecified; I25.2 Old myocardial infarction; E11.9 Type 2 diabetes mellitus without complications; F32.9 Major depressive disorder, single episode, unspecified; Z90.49 Acquired absence of other specified parts of digestive tract; Z95.0 Presence of cardiac pacemaker
CPT/HCPCS: 36415; 74022; 80053; 81003; 83690; 85025; 93005; 96374; 99285; J1885

== ENCOUNTER 2018-05-08 14:17 | Emergency (ER) | payer MEDICARE, MEDICAID ==
[~2018-05-08] VITALS: Ht 165.1 cm; Wt 84.0 kg
[2018-05-08] MEDS ORDERED: SODIUM CHLORIDE 0.9% 1,000ML IVBOLUS ONE (14:30)
[2018-05-08] MEDS ORDERED: SODIUM CHLORIDE FLUSH 10ML SYR IVF ONE (14:30)
[2018-05-08] MEDS ORDERED: ASPIRIN 81 MG TABLET CHEW PO ONE (14:30)
[2018-05-08] MEDS ORDERED: NITROGLYCERIN OINT 2%, 1GM TP ONE ×2 (14:30→14:47)
[2018-05-08] MEDS ORDERED: ASPIRIN 81 MG TABLET CHEW ONE (14:47)
[2018-05-08 15:07] LABS: BASOPHILS # (AUTO) 0.03 x10^3/uL (0-0.1); BASOPHILS % (AUTO) 0 % (0-1); EOSINOPHILS # (AUTO) 0.04 x10^3/uL (0-0.4); EOSINOPHILS % (AUTO) 0 % (1-7); LYMPHOCYTES # (AUTO) 1.68 x10^3/uL (1-3.4); LYMPHOCYTES % (AUTO) 15 % (22-44); MD NO; MEAN CORPUSCULAR HEMOGLOBIN 30.6 pg (27.5-34.5); MEAN CORPUSCULAR HGB CONC 33.1 g/dL (33.2-36.2); MEAN CORPUSCULAR VOLUME 92.6 fL (81-97); MEAN PLATELET VOLUME 8.4 fL (7.4-10.4); MONOCYTES # (AUTO) 0.72 x10^3/uL (0.2-0.8); MONOCYTES % (AUTO) 6 % (2-9); NEUTROPHILS # (AUTO) 8.72 x10^3/uL (1.8-6.8); NEUTROPHILS % (AUTO) 78 % (42-75); PLATELET COUNT 221 x10^3/uL (130-400); RED BLOOD COUNT 4.82 x10^6/uL (4.38-5.82); RED CELL DISTRIBUTION WIDTH 14.3 % (9.4-14.8)
[2018-05-08 15:13] LABS: ALANINE AMINOTRANSFERASE 21 U/L (12-78); ALBUMIN 3.7 g/dL (3.4-5.0); ANION GAP 12 mmol/L (5-15); CALCIUM 8.6 mg/dL (8.5-10.1); CHLORIDE 107 mmol/L (98-107); CREATININE 1.03 mg/dL (0.7-1.3)
[2018-05-08 15:17] LABS: ALKALINE PHOSPHATASE 104 U/L (45-117); BILIRUBIN,TOTAL 0.6 mg/dL (0.2-1.0); TOTAL PROTEIN 7.9 g/dL (6.4-8.2); TROPONIN I < 0.015 ng/mL (0.000-0.045)
[2018-05-08 15:51] LABS: CULTURE INDICATED? NO; MICROSCOPIC NOT IND
[2018-05-08] MEDS ORDERED: METOCLOPRAMIDE 5 MG/ML, 2ML IVPush ONE (16:30)
[2018-05-08] MEDS ORDERED: METOCLOPRAMIDE 5 MG/ML, 2ML ONE (16:41)
[2018-05-08 18:04] LABS: TROPONIN I < 0.015 ng/mL (0.000-0.045)
[2018-05-08 18:41] VITALS: BP 194/112
== END 2018-05-08 18:52 | disposition home or self-care (01) ==
LOC: ED 14:23
DX: R07.9 Chest pain, unspecified (principal); I25.10 Atherosclerotic heart disease of native coronary artery without angina pectoris; I10 Essential (primary) hypertension; R11.2 Nausea with vomiting, unspecified; E78.00 Pure hypercholesterolemia, unspecified; I11.0 Hypertensive heart disease with heart failure; I50.9 Heart failure, unspecified; I25.2 Old myocardial infarction; E78.5 Hyperlipidemia, unspecified; Z90.49 Acquired absence of other specified parts of digestive tract; Z95.0 Presence of cardiac pacemaker
CPT/HCPCS: 36415; 71045; 80053; 81003; 83690; 84484; 85025; 93005; 96361; 96374; 99285; J2765; J7030

== ENCOUNTER 2018-05-24 19:28 | Emergency (ER) | payer MEDICARE, MEDICAID ==
[~2018-05-24] VITALS: Ht 165.1 cm; Wt 83.6 kg
[2018-05-24] MEDS ORDERED: MAALOX/HYOSCYAMINE/LIDOCAINE 45 ML BTL ONE (19:56)
[2018-05-24] MEDS ORDERED: MAALOX/HYOSCYAMINE/LIDOCAINE 45 ML BTL PO ONE (20:00)
[2018-05-24 20:42] LABS: BASOPHILS # (AUTO) 0.04 x10^3/uL (0-0.1); BASOPHILS % (AUTO) 0 % (0-1); EOSINOPHILS # (AUTO) 0.15 x10^3/uL (0-0.4); EOSINOPHILS % (AUTO) 1 % (1-7); LYMPHOCYTES # (AUTO) 2.04 x10^3/uL (1-3.4); LYMPHOCYTES % (AUTO) 16 % (22-44); MD NO; MEAN CORPUSCULAR HEMOGLOBIN 31.3 pg (27.5-34.5); MEAN CORPUSCULAR HGB CONC 33.7 g/dL (33.2-36.2); MEAN CORPUSCULAR VOLUME 92.8 fL (81-97); MEAN PLATELET VOLUME 8.4 fL (7.4-10.4); MONOCYTES # (AUTO) 0.83 x10^3/uL (0.2-0.8); MONOCYTES % (AUTO) 6 % (2-9); NEUTROPHILS # (AUTO) 9.92 x10^3/uL (1.8-6.8); NEUTROPHILS % (AUTO) 76 % (42-75); PLATELET COUNT 184 x10^3/uL (130-400); RED BLOOD COUNT 4.51 x10^6/uL (4.38-5.82); RED CELL DISTRIBUTION WIDTH 14.3 % (9.4-14.8)
[2018-05-24 20:50] LABS: ALANINE AMINOTRANSFERASE 23 U/L (12-78); ALBUMIN 3.7 g/dL (3.4-5.0); ANION GAP 9 mmol/L (5-15); CALCIUM 8.7 mg/dL (8.5-10.1); CHLORIDE 111 mmol/L (98-107); CREATININE 1.02 mg/dL (0.7-1.3)
[2018-05-24 20:53] LABS: ALKALINE PHOSPHATASE 92 U/L (45-117); BILIRUBIN,TOTAL 0.5 mg/dL (0.2-1.0); TOTAL PROTEIN 7.5 g/dL (6.4-8.2)
[2018-05-24 20:55] LABS: TROPONIN I < 0.015 ng/mL (0.000-0.045)
[2018-05-24 21:16] LABS: MICROSCOPIC AUTO
[2018-05-24 21:20] LABS: CULTURE INDICATED? NO
[2018-05-24 21:38] VITALS: BP 154/98
[2018-05-25] MEDS ORDERED: TRAZ-136 PO (23:11)
== END 2018-05-24 22:07 | disposition home or self-care (01) ==
LOC: ED 21:30
DX: R10.84 Generalized abdominal pain (principal); R07.9 Chest pain, unspecified; R19.7 Diarrhea, unspecified; I25.10 Atherosclerotic heart disease of native coronary artery without angina pectoris; I25.2 Old myocardial infarction; I50.9 Heart failure, unspecified; E78.00 Pure hypercholesterolemia, unspecified; I11.0 Hypertensive heart disease with heart failure
CPT/HCPCS: 36415; 74022; 80053; 81001; 83690; 84484; 85025; 93005; 99285

== ENCOUNTER 2018-05-25 07:05 | Inpatient (IN) | payer MEDICARE, MEDICAID ==
[~2018-05-25] VITALS: Ht 165.1 cm; Wt 81.8 kg
[2018-05-25] MEDS ORDERED: SODIUM CHLORIDE FLUSH 10ML SYR IVF ONE (07:30)
[2018-05-25] MEDS ORDERED: NITROGLYCERIN OINT 2%, 1GM TP ONE ×3 (07:30→07:41)
[2018-05-25 07:41] LABS: BASOPHILS # (AUTO) 0.01 x10^3/uL (0-0.1); BASOPHILS % (AUTO) 0 % (0-1); EOSINOPHILS # (AUTO) 0.03 x10^3/uL (0-0.4); EOSINOPHILS % (AUTO) 0 % (1-7); LYMPHOCYTES # (AUTO) 1.42 x10^3/uL (1-3.4); LYMPHOCYTES % (AUTO) 10 % (22-44); MD NO; MEAN CORPUSCULAR HEMOGLOBIN 30.8 pg (27.5-34.5); MEAN CORPUSCULAR HGB CONC 33.3 g/dL (33.2-36.2); MEAN CORPUSCULAR VOLUME 92.6 fL (81-97); MEAN PLATELET VOLUME 8.5 fL (7.4-10.4); MONOCYTES % (AUTO) 4 % (2-9); NEUTROPHILS # (AUTO) 11.61 x10^3/uL (1.8-6.8); NEUTROPHILS % (AUTO) 86 % (42-75); PLATELET COUNT 193 x10^3/uL (130-400); RED CELL DISTRIBUTION WIDTH 13.7 % (9.4-14.8)
[2018-05-25 07:49] LABS: ALANINE AMINOTRANSFERASE 22 U/L (12-78); ANION GAP 13 mmol/L (5-15); CALCIUM 8.5 mg/dL (8.5-10.1); CHLORIDE 107 mmol/L (98-107)
[2018-05-25 07:53] LABS: ALKALINE PHOSPHATASE 92 U/L (45-117); BILIRUBIN,TOTAL 0.6 mg/dL (0.2-1.0); TOTAL PROTEIN 7.9 g/dL (6.4-8.2); TROPONIN I < 0.015 ng/mL (0.000-0.045)
[2018-05-25 09:02] LABS: MICROSCOPIC AUTO
[2018-05-25 09:03] LABS: CULTURE INDICATED? NO
[2018-05-25] MEDS ORDERED: OMNIPAQUE 350 MG/ML, 100ML BOTTLE ONE (09:46)
[2018-05-25] MEDS ORDERED: morphine SULFATE 10 MG/ML, 1ML IVPush ONE (10:30)
[2018-05-25] MEDS ORDERED: MORPHINE SULFATE 4 MG/ML, 1ML ONE ×2 (10:46→13:17)
[2018-05-25 11:25] LABS: TROPONIN I 0.017 ng/mL (0.000-0.045)
[2018-05-25] MEDS ORDERED: hydrALAzine 20 MG/ML, 1ML ONE (11:51)
[2018-05-25] MEDS ORDERED: hydrALAzine 20 MG/ML, 1ML IV ONE (12:00)
[2018-05-25 13:02] VITALS: BP 120/86
[2018-05-25] MEDS ORDERED: LORazepam 2 MG/ML, 1ML ONE (13:17)
[2018-05-25] MEDS ORDERED: ACETAMINOPHEN 325 MG TABLET PO PRN (13:30)
[2018-05-25] MEDS ORDERED: LORazepam 2 MG/ML, 1ML IVPush PRN (13:30)
[2018-05-25] MEDS ORDERED: ONDANSETRON ODT 4 MG PO PRN (13:30)
[2018-05-25] MEDS ORDERED: NITROGLYCERIN 0.4 MG/SPRAY SL PRN (13:30)
[2018-05-25] MEDS ORDERED: hydrALAzine 20 MG/ML, 1ML IVPush PRN (13:30)
[2018-05-25] MEDS ORDERED: ONDANSETRON 2MG/ML, 2ML IVPush PRN (13:30)
[2018-05-25] MEDS ORDERED: NITROGLYCERIN 0.4 MG BOTTLE (25 TABS) SL PRN ×2 (13:30)
[2018-05-25] MEDS ORDERED: MORPHINE SULFATE 4 MG/ML, 1ML IVPush PRN (13:30)
[2018-05-25 14:06] LABS: THYROID STIMULATING HORMONE 0.484 mIU/L (0.358-3.740)
[2018-05-25] MEDS ORDERED: MAGNESIUM SULFATE PMX 2GM/50ML 50 ML IV ONE (14:30)
[2018-05-25] MEDS: GABAPENTIN 300 MG CAPSULE PO SCH ×2 (15:06→19:54)
[2018-05-25] MEDS: HEPARIN 5,000 UNITS/ML, 1ML SQ SCH ×2 (15:07→23:09)
[2018-05-25 15:40] LABS: AMPHETAMINE SCREEN, URINE Negative (Negative); BARBITURATE SCREEN, URINE Negative (Negative); BENZODIAZEPINE SCREEN, URINE Negative (Negative); CANNABINOID SCREEN, URINE Positive (Negative); COCAINE SCREEN, URINE Negative (Negative); METHADONE SCREEN, URINE Negative (Negative); OPIATE SCREEN, URINE Positive (Negative)
[2018-05-25] MEDS: INSULIN LISPRO 100 UNITS/ML, PEN SQ-INSULIN SCH ×2 (16:12→19:53)
[2018-05-25 16:27] VITALS: BP 118/79
[2018-05-25] MEDS: MORPHINE SULFATE 4 MG/ML, 1ML IVPush PRN ×2 (17:05→21:15)
[2018-05-25 18:58] LABS: TROPONIN I 0.041 ng/mL (0.000-0.045)
[2018-05-25 19:50] VITALS: BP 163/89
[2018-05-25] MEDS: RANOLAZINE 500 MG TAB.ER.12H PO SCH (19:53)
[2018-05-25] MEDS ORDERED: ATORVASTATIN 40 MG TABLET PO SCH (21:00)
[2018-05-25] MEDS ORDERED: QUETIAPINE 100MG TABLET PO SCH (21:00)
[2018-05-25] MEDS ORDERED: TRAZ-136 PO (23:11)
[2018-05-25] MEDS ORDERED: TRAZODONE 50MG TABLET PO PRN (23:30)
[2018-05-25 23:44] VITALS: BP 82/60
[2018-05-25 23:45] VITALS: BP 87/60
[2018-05-25 23:46] VITALS: BP 145/79
[2018-05-26] MEDS: MORPHINE SULFATE 4 MG/ML, 1ML IVPush PRN (03:11)
[2018-05-26 05:13] LABS: BASOPHILS # (AUTO) 0.04 x10^3/uL (0-0.1); BASOPHILS % (AUTO) 0 % (0-1); EOSINOPHILS # (AUTO) 0.12 x10^3/uL (0-0.4); EOSINOPHILS % (AUTO) 1 % (1-7); LYMPHOCYTES # (AUTO) 2.78 x10^3/uL (1-3.4); LYMPHOCYTES % (AUTO) 25 % (22-44); MD NO; MEAN CORPUSCULAR HEMOGLOBIN 31.2 pg (27.5-34.5); MEAN CORPUSCULAR HGB CONC 33.6 g/dL (33.2-36.2); MEAN CORPUSCULAR VOLUME 93.1 fL (81-97); MEAN PLATELET VOLUME 8.2 fL (7.4-10.4); MONOCYTES # (AUTO) 0.99 x10^3/uL (0.2-0.8); MONOCYTES % (AUTO) 9 % (2-9); NEUTROPHILS # (AUTO) 7.25 x10^3/uL (1.8-6.8); NEUTROPHILS % (AUTO) 65 % (42-75); PLATELET COUNT 181 x10^3/uL (130-400); RED BLOOD COUNT 4.19 x10^6/uL (4.38-5.82); RED CELL DISTRIBUTION WIDTH 14.5 % (9.4-14.8)
[2018-05-26 05:34] LABS: CHLORIDE 102 mmol/L (98-107)
[2018-05-26 05:38] LABS: ANION GAP 7 mmol/L (5-15); CALCIUM 8.6 mg/dL (8.5-10.1); CHOL/HDL RATIO 3.3; CHOLESTEROL, TOTAL 106 mg/dL (140-239); HDL CHOL % 30 % (26-37); HDL CHOLESTEROL (DIRECT) 32 mg/dL (40-60); LDL CHOLESTEROL,CALCULATED 22 mg/dL (54-169); LDL/HDL RATIO 0.7 (0.5-3.0); TRIGLYCERIDES 262 mg/dL (50-200); VLDL CHOLESTEROL 52 mg/dL (0-25)
[2018-05-26] MEDS ORDERED: POTASSIUM CHLORIDE 20 MEQ TAB.ER.PRT PO ONE (07:30)
[2018-05-26 07:35] VITALS: BP 125/72
[2018-05-26] MEDS: INSULIN LISPRO 100 UNITS/ML, PEN SQ-INSULIN SCH ×2 (08:00→12:36)
[2018-05-26] MEDS: RANOLAZINE 500 MG TAB.ER.12H PO SCH (08:36)
[2018-05-26] MEDS: GABAPENTIN 300 MG CAPSULE PO SCH (08:36)
[2018-05-26] MEDS: HEPARIN 5,000 UNITS/ML, 1ML SQ SCH (08:37)
[2018-05-26] MEDS ORDERED: LISINOPRIL 10 MG TABLET PO SCH (09:00)
[2018-05-26] MEDS ORDERED: TEMPLATE NON-FORMULARY MED. (Escitalopram Oxalate** 20 MG) PO SCH (09:00)
[2018-05-26] MEDS ORDERED: ASPIRIN 81 MG TABLET EC PO SCH (09:00)
[2018-05-26] MEDS ORDERED: METOPROLOL SUCCINATE 100 MG TAB.ER.24H PO SCH (09:00)
[2018-05-26] MEDS ORDERED: OMEPRAZOLE 20 MG CAPSULE.DR PO SCH (09:00)
[2018-05-26] MEDS ORDERED: RANO500T2 PO (11:47)
[2018-05-26 12:34] LABS: HEMOGLOBIN A1C 6.7 % (4.2-6.3)
== END 2018-05-26 15:00 | disposition home or self-care (01) | DRG 303 ==
LOC: ED 08:36 → EDIP 12:13 → 5SO 12:57 → DCLOUNGE 05-26 14:54
PROVIDERS: ADMIT Family Medicine; ATTEND Family Medicine
DX: I25.110 Atherosclerotic heart disease of native coronary artery with unstable angina pectoris (principal); E11.65 Type 2 diabetes mellitus with hyperglycemia; D72.829 Elevated white blood cell count, unspecified; E78.00 Pure hypercholesterolemia, unspecified; E78.5 Hyperlipidemia, unspecified; F12.90 Cannabis use, unspecified, uncomplicated; F31.9 Bipolar disorder, unspecified; G89.29 Other chronic pain; I11.0 Hypertensive heart disease with heart failure; I25.5 Ischemic cardiomyopathy; R10.9 Unspecified abdominal pain; I50.9 Heart failure, unspecified; K21.9 Gastro-esophageal reflux disease without esophagitis; Z72.0 Tobacco use; I25.2 Old myocardial infarction; Z79.84 Long term (current) use of oral hypoglycemic drugs; Z82.49 Family history of ischemic heart disease and other diseases of the circulatory system; Z91.19 Patient's noncompliance with other medical treatment and regimen; Z86.718 Personal history of other venous thrombosis and embolism; Z95.1 Presence of aortocoronary bypass graft; Z95.5 Presence of coronary angioplasty implant and graft; Z95.810 Presence of automatic (implantable) cardiac defibrillator; Z90.49 Acquired absence of other specified parts of digestive tract
CPT/HCPCS: 36415; 71045; 71275; 80048; 80053; 80061; 80307; 81001; 82962; 83036; 83690; 83735; 84100; 84443; 84484; 85025; 93005; 96374; 96375; C8929; G0378; J1644; Q0162; Q9957; Q9967; J0360; J1815; J2060; J2270; J3475

== ENCOUNTER 2018-06-10 15:27 | Emergency (ER) | payer MEDICARE, MEDICAID ==
[~2018-06-10] VITALS: Ht 165.1 cm; Wt 84.0 kg
[~2018-06-10 15:27] MED LIST changes: +TRAZ-136 PO
[2018-06-10] MEDS ORDERED: KETOROLAC 30 MG/1 ML ONE (15:59)
[2018-06-10] MEDS ORDERED: KETOROLAC 30 MG/1 ML IVPush ONE (16:00)
[2018-06-10] MEDS ORDERED: ASPIRIN 81 MG TABLET CHEW PO ONE (16:00)
[2018-06-10 16:05] LABS: BASOPHILS # (AUTO) 0.03 x10^3/uL (0-0.1); BASOPHILS % (AUTO) 0 % (0-1); EOSINOPHILS # (AUTO) 0.04 x10^3/uL (0-0.4); EOSINOPHILS % (AUTO) 0 % (1-7); LYMPHOCYTES # (AUTO) 1.89 x10^3/uL (1-3.4); LYMPHOCYTES % (AUTO) 13 % (22-44); MD NO; MEAN CORPUSCULAR HEMOGLOBIN 31.1 pg (27.5-34.5); MEAN CORPUSCULAR HGB CONC 33.8 g/dL (33.2-36.2); MEAN CORPUSCULAR VOLUME 92.1 fL (81-97); MEAN PLATELET VOLUME 8.1 fL (7.4-10.4); MONOCYTES # (AUTO) 0.74 x10^3/uL (0.2-0.8); MONOCYTES % (AUTO) 5 % (2-9); NEUTROPHILS # (AUTO) 12.26 x10^3/uL (1.8-6.8); NEUTROPHILS % (AUTO) 82 % (42-75); PLATELET COUNT 264 x10^3/uL (130-400); RED BLOOD COUNT 4.81 x10^6/uL (4.38-5.82)
[2018-06-10 16:18] LABS: CHLORIDE 107 mmol/L (98-107)
[2018-06-10 16:19] LABS: ALBUMIN 3.7 g/dL (3.4-5.0); ANION GAP 11 mmol/L (5-15); CALCIUM 8.9 mg/dL (8.5-10.1); CREATININE 1.13 mg/dL (0.7-1.3)
[2018-06-10 16:22] LABS: TROPONIN I < 0.015 ng/mL (0.000-0.045)
[2018-06-10] MEDS ORDERED: MORPHINE SULFATE 4 MG/ML, 1ML ONE (17:40)
[2018-06-10] MEDS ORDERED: MORPHINE SULFATE 4 MG/ML, 1ML IVPush PRN (18:00)
[2018-06-10 18:48] VITALS: BP 125/74
== END 2018-06-10 17:04 ==
LOC: ED 16:58
DX: R07.89 Other chest pain (principal); R19.7 Diarrhea, unspecified; R11.0 Nausea; I11.0 Hypertensive heart disease with heart failure; I50.9 Heart failure, unspecified; I25.2 Old myocardial infarction; I25.10 Atherosclerotic heart disease of native coronary artery without angina pectoris; F32.9 Major depressive disorder, single episode, unspecified; R10.9 Unspecified abdominal pain; E11.9 Type 2 diabetes mellitus without complications; K21.9 Gastro-esophageal reflux disease without esophagitis; I20.0 Unstable angina; E78.00 Pure hypercholesterolemia, unspecified; E66.9 Obesity, unspecified; Z68.30 Body mass index [BMI] 30.0-30.9, adult; Z72.9 Problem related to lifestyle, unspecified; Z87.19 Personal history of other diseases of the digestive system; Z95.0 Presence of cardiac pacemaker
CPT/HCPCS: 36415; 71045; 80048; 82040; 84484; 85025; 93005; 96374; 96375; 99285; J1885

== ENCOUNTER 2018-07-05 09:06 | Emergency (ER) | payer MEDICARE, MEDICAID ==
[~2018-07-05] VITALS: Ht 165.1 cm; Wt 85.0 kg
[~2018-07-05 09:06] MED LIST changes: -ASPI-621 PO; +ASPI81TA45 PO; -TRAZ-136 PO; +TRAZ50TA66 PO
[2018-07-05] MEDS ORDERED: MORPHINE SULFATE 4 MG/ML, 1ML ONE ×2 (09:27→11:23)
[2018-07-05] MEDS ORDERED: MORPHINE SULFATE 4 MG/ML, 1ML IVPush ONE (09:30)
[2018-07-05 09:37] LABS: BASOPHILS # (AUTO) 0.01 x10^3/uL (0-0.1); BASOPHILS % (AUTO) 0 % (0-1); EOSINOPHILS # (AUTO) 0.08 x10^3/uL (0-0.4); EOSINOPHILS % (AUTO) 1 % (1-7); LYMPHOCYTES # (AUTO) 0.38 x10^3/uL (1-3.4); LYMPHOCYTES % (AUTO) 4 % (22-44); MD NO; MEAN CORPUSCULAR VOLUME 90.9 fL (81-97); MEAN PLATELET VOLUME 8.5 fL (7.4-10.4); MONOCYTES # (AUTO) 0.65 x10^3/uL (0.2-0.8); MONOCYTES % (AUTO) 7 % (2-9); NEUTROPHILS # (AUTO) 8.66 x10^3/uL (1.8-6.8); NEUTROPHILS % (AUTO) 89 % (42-75); PLATELET COUNT 167 x10^3/uL (130-400); RED BLOOD COUNT 4.13 x10^6/uL (4.38-5.82); RED CELL DISTRIBUTION WIDTH 14.4 % (9.4-14.8)
[2018-07-05 09:46] LABS: INTERNATIONAL NORMALIZED RATIO 1.06 (0.93-1.1); PROTHROMBIN TIME 11.2 Seconds (9.6-11.5)
[2018-07-05 09:47] LABS: ALANINE AMINOTRANSFERASE 26 U/L (12-78); ALBUMIN 3.5 g/dL (3.4-5.0); ANION GAP 9 mmol/L (5-15); CALCIUM 8.2 mg/dL (8.5-10.1); CHLORIDE 108 mmol/L (98-107); CREATININE 1.04 mg/dL (0.7-1.3)
[2018-07-05 09:52] LABS: ALKALINE PHOSPHATASE 113 U/L (45-117); BILIRUBIN,TOTAL 0.7 mg/dL (0.2-1.0); TOTAL PROTEIN 7.2 g/dL (6.4-8.2); TROPONIN I < 0.015 ng/mL (0.000-0.045)
[2018-07-05] MEDS ORDERED: MORPHINE SULFATE 4 MG/ML, 1ML IVPush PRN (11:30)
[2018-07-05 11:50] VITALS: BP 137/87
== END 2018-07-05 11:53 | disposition home or self-care (01) ==
LOC: ED 09:24
DX: R07.9 Chest pain, unspecified (principal); I50.9 Heart failure, unspecified; I25.2 Old myocardial infarction; I25.10 Atherosclerotic heart disease of native coronary artery without angina pectoris; I11.0 Hypertensive heart disease with heart failure; E11.9 Type 2 diabetes mellitus without complications
CPT/HCPCS: 36415; 71045; 80053; 83690; 83880; 84484; 85025; 85610; 85730; 93005; 96374; 96376

== ENCOUNTER 2018-07-06 03:32 | Observation (INO) | payer MEDICARE, MEDICAID ==
[~2018-07-06] VITALS: Ht 165.1 cm; Wt 85.4 kg
[2018-07-06] VITALS (7 sets, daily range): BP systolic 117–157; BP diastolic 75–84
[2018-07-06] MEDS ORDERED: ONDANSETRON 2MG/ML, 2ML ONE (03:55)
[2018-07-06] MEDS ORDERED: MORPHINE SULFATE 4 MG/ML, 1ML ONE (03:56)
[2018-07-06] MEDS ORDERED: ACETAMINOPHEN 325 MG TABLET ONE (03:56)
[2018-07-06 04:00] LABS: BASOPHILS # (AUTO) 0.01 x10^3/uL (0-0.1); BASOPHILS % (AUTO) 0 % (0-1); EOSINOPHILS % (AUTO) 0 % (1-7); LYMPHOCYTES # (AUTO) 0.54 x10^3/uL (1-3.4); LYMPHOCYTES % (AUTO) 6 % (22-44); MD NO; MEAN CORPUSCULAR HEMOGLOBIN 31.1 pg (27.5-34.5); MEAN CORPUSCULAR HGB CONC 34.3 g/dL (33.2-36.2); MEAN CORPUSCULAR VOLUME 90.7 fL (81-97); MEAN PLATELET VOLUME 8.4 fL (7.4-10.4); MONOCYTES # (AUTO) 0.66 x10^3/uL (0.2-0.8); MONOCYTES % (AUTO) 7 % (2-9); NEUTROPHILS # (AUTO) 8.28 x10^3/uL (1.8-6.8); NEUTROPHILS % (AUTO) 87 % (42-75); PLATELET COUNT 170 x10^3/uL (130-400); RED BLOOD COUNT 4.24 x10^6/uL (4.38-5.82); RED CELL DISTRIBUTION WIDTH 14.2 % (9.4-14.8)
[2018-07-06] MEDS ORDERED: MORPHINE SULFATE 4 MG/ML, 1ML IVPush PRN (04:00)
[2018-07-06] MEDS ORDERED: ONDANSETRON 2MG/ML, 2ML IVPush ONE (04:00)
[2018-07-06] MEDS ORDERED: ACETAMINOPHEN 325 MG TABLET PO ONE (04:00)
[2018-07-06 04:09] LABS: INTERNATIONAL NORMALIZED RATIO 1.14 (0.93-1.1)
[2018-07-06 04:12] LABS: ALBUMIN 3.6 g/dL (3.4-5.0); ANION GAP 13 mmol/L (5-15); CALCIUM 8.7 mg/dL (8.5-10.1); CHLORIDE 105 mmol/L (98-107); CREATININE 1.22 mg/dL (0.7-1.3)
[2018-07-06 04:16] LABS: TROPONIN I 0.025 ng/mL (0.000-0.045)
[2018-07-06] MEDS ORDERED: hydrALAzine 20 MG/ML, 1ML IVPush PRN (05:30)
[2018-07-06] MEDS ORDERED: morphine SULFATE 10 MG/ML, 1ML IVPush PRN (05:30)
[2018-07-06] MEDS ORDERED: NITROGLYCERIN 0.4 MG BOTTLE (25 TABS) SL PRN (05:30)
[2018-07-06] MEDS ORDERED: ONDANSETRON 2MG/ML, 2ML IVPush PRN (05:30)
[2018-07-06] MEDS: ASPIRIN 81 MG TABLET EC PO SCH (06:02)
[2018-07-06] MEDS: SODIUM CHLORIDE 0.9% 1,000 ML IV SCH ×2 (06:02→19:56)
[2018-07-06 08:39] LABS: TROPONIN I 0.039 ng/mL (0.000-0.045)
[2018-07-06] MEDS ORDERED: RANOLAZINE 500 MG TAB.ER.12H PO SCH (09:00)
[2018-07-06] MEDS ORDERED: SODIUM CHLORIDE NASAL SPRAY 45ML BOTTLE NAS PRN (09:00)
[2018-07-06] MEDS: INSULIN LISPRO 100 UNITS/ML, PEN SQ-INSULIN SCH ×4 (10:07→20:55)
[2018-07-06] MEDS: CETIRIZINE 10 MG TABLET PO SCH (10:08)
[2018-07-06] MEDS: METOPROLOL SUCCINATE 100 MG TAB.ER.24H PO SCH (10:08)
[2018-07-06] MEDS: CITALOPRAM 20 MG TABLET PO SCH (10:08)
[2018-07-06] MEDS: ISOSORBIDE MONONITRATE ER 30 MG TABLET PO SCH (10:08)
[2018-07-06] MEDS: LISINOPRIL 10 MG TABLET PO SCH (10:09)
[2018-07-06] MEDS: GABAPENTIN 300 MG CAPSULE PO SCH ×3 (10:09→20:55)
[2018-07-06] MEDS: LINAGLIPTIN 5 MG TAB PO SCH (10:09)
[2018-07-06] MEDS: OMEPRAZOLE 20 MG CAPSULE.DR PO SCH (10:09)
[2018-07-06] MEDS: ACETAMINOPHEN 325 MG TABLET PO PRN ×2 (13:11→18:24)
[2018-07-06 14:54] LABS: TROPONIN I 0.052 ng/mL (0.000-0.045)
[2018-07-06] MEDS ORDERED: OMNIPAQUE 350 MG/ML, 100ML BOTTLE ONE (19:15)
[2018-07-06] MEDS: TRAZODONE 50MG TABLET PO SCH (20:54)
[2018-07-06] MEDS: QUETIAPINE 100MG TABLET PO SCH (20:55)
[2018-07-06] MEDS: ATORVASTATIN 40 MG TABLET PO SCH (20:55)
[2018-07-07] VITALS (8 sets, daily range): BP systolic 117–146; BP diastolic 71–98
[2018-07-07] MEDS: ACETAMINOPHEN 325 MG TABLET PO PRN ×5 (03:51→22:57)
[2018-07-07] MEDS: ASPIRIN 81 MG TABLET EC PO SCH (04:42)
[2018-07-07] MEDS ORDERED: MORPHINE SULFATE 4 MG/ML, 1ML IVPush ONE ×2 (05:30→14:00)
[2018-07-07] MEDS: INSULIN LISPRO 100 UNITS/ML, PEN SQ-INSULIN SCH ×4 (07:51→20:22)
[2018-07-07] MEDS: GABAPENTIN 300 MG CAPSULE PO SCH ×3 (08:10→20:21)
[2018-07-07] MEDS: CLOPIDOGREL 75 MG TABLET PO SCH (08:10)
[2018-07-07] MEDS: OMEPRAZOLE 20 MG CAPSULE.DR PO SCH (08:10)
[2018-07-07] MEDS: LISINOPRIL 10 MG TABLET PO SCH (08:11)
[2018-07-07] MEDS: CETIRIZINE 10 MG TABLET PO SCH (08:11)
[2018-07-07] MEDS: LINAGLIPTIN 5 MG TAB PO SCH (08:11)
[2018-07-07] MEDS: METOPROLOL SUCCINATE 100 MG TAB.ER.24H PO SCH (08:11)
[2018-07-07] MEDS: MESALAMINE 400 MG CAPSULE.DR PO SCH ×3 (08:11→20:21)
[2018-07-07] MEDS: CITALOPRAM 20 MG TABLET PO SCH (08:12)
[2018-07-07] MEDS: ISOSORBIDE MONONITRATE ER 30 MG TABLET PO SCH (08:12)
[2018-07-07 08:23] LABS: MICROSCOPIC AUTO
[2018-07-07 08:24] LABS: CULTURE INDICATED? NO
[2018-07-07] MEDS ORDERED: MORPHINE SULFATE 4 MG/ML, 1ML ONE (13:55)
[2018-07-07 17:00] LABS: CLOSTRIDIUM DIFFICILE ANTIGEN NEGATIVE; CLOSTRIDIUM DIFFICILE TOXIN NEGATIVE (Negative)
[2018-07-07 18:44] LABS: ALANINE AMINOTRANSFERASE 25 U/L (12-78); ALBUMIN 3.2 g/dL (3.4-5.0); ANION GAP 10 mmol/L (5-15); CALCIUM 8.1 mg/dL (8.5-10.1); CHLORIDE 107 mmol/L (98-107); CREATININE 1.11 mg/dL (0.7-1.3)
[2018-07-07 18:46] LABS: ALKALINE PHOSPHATASE 106 U/L (45-117); BILIRUBIN,TOTAL 0.5 mg/dL (0.2-1.0); TOTAL PROTEIN 7.5 g/dL (6.4-8.2)
[2018-07-07] MEDS: morphine SULFATE 10 MG/ML, 1ML IVPush PRN (19:58)
[2018-07-07] MEDS: QUETIAPINE 100MG TABLET PO SCH (20:21)
[2018-07-07] MEDS: TRAZODONE 50MG TABLET PO SCH (20:22)
[2018-07-07] MEDS: ATORVASTATIN 40 MG TABLET PO SCH (20:22)
[2018-07-07 20:30] LABS: TROPONIN I 0.024 ng/mL (0.000-0.045)
[2018-07-08 01:19] VITALS: BP 113/75
[2018-07-08 05:05] LABS: ANION GAP 6 mmol/L (5-15); CALCIUM 8.4 mg/dL (8.5-10.1); CHLORIDE 108 mmol/L (98-107)
[2018-07-08 05:06] LABS: BASOPHILS # (AUTO) 0.01 x10^3/uL (0-0.1); BASOPHILS % (AUTO) 0 % (0-1); EOSINOPHILS # (AUTO) 0.03 x10^3/uL (0-0.4); EOSINOPHILS % (AUTO) 1 % (1-7); LYMPHOCYTES % (AUTO) 29 % (22-44); MD NO; MEAN CORPUSCULAR HEMOGLOBIN 30.7 pg (27.5-34.5); MEAN CORPUSCULAR HGB CONC 33.7 g/dL (33.2-36.2); MEAN CORPUSCULAR VOLUME 91.1 fL (81-97); MEAN PLATELET VOLUME 8.2 fL (7.4-10.4); MONOCYTES # (AUTO) 0.75 x10^3/uL (0.2-0.8); MONOCYTES % (AUTO) 16 % (2-9); NEUTROPHILS # (AUTO) 2.65 x10^3/uL (1.8-6.8); NEUTROPHILS % (AUTO) 55 % (42-75); PLATELET COUNT 134 x10^3/uL (130-400); RED BLOOD COUNT 3.77 x10^6/uL (4.38-5.82); RED CELL DISTRIBUTION WIDTH 14.5 % (9.4-14.8)
[2018-07-08 05:09] LABS: ALANINE AMINOTRANSFERASE 22 U/L (12-78); ALKALINE PHOSPHATASE 96 U/L (45-117); BILIRUBIN,TOTAL 0.4 mg/dL (0.2-1.0); TOTAL PROTEIN 6.9 g/dL (6.4-8.2)
[2018-07-08] MEDS: morphine SULFATE 10 MG/ML, 1ML IVPush PRN (05:57)
[2018-07-08] MEDS: ASPIRIN 81 MG TABLET EC PO SCH (05:57)
[2018-07-08] MEDS: INSULIN LISPRO 100 UNITS/ML, PEN SQ-INSULIN SCH ×2 (07:00→11:00)
[2018-07-08 08:20] VITALS: BP 130/79
[2018-07-08] MEDS: GABAPENTIN 300 MG CAPSULE PO SCH (08:25)
[2018-07-08] MEDS: ISOSORBIDE MONONITRATE ER 30 MG TABLET PO SCH (08:25)
[2018-07-08] MEDS: METOPROLOL SUCCINATE 100 MG TAB.ER.24H PO SCH (08:25)
[2018-07-08] MEDS: CLOPIDOGREL 75 MG TABLET PO SCH (08:25)
[2018-07-08] MEDS: MESALAMINE 400 MG CAPSULE.DR PO SCH (08:25)
[2018-07-08] MEDS: LINAGLIPTIN 5 MG TAB PO SCH (08:25)
[2018-07-08] MEDS: CITALOPRAM 20 MG TABLET PO SCH (08:25)
[2018-07-08] MEDS: ACETAMINOPHEN 325 MG TABLET PO PRN (08:25)
[2018-07-08] MEDS: LISINOPRIL 10 MG TABLET PO SCH (08:26)
[2018-07-08] MEDS: CETIRIZINE 10 MG TABLET PO SCH (08:26)
[2018-07-08] MEDS: OMEPRAZOLE 20 MG CAPSULE.DR PO SCH (08:26)
[2018-07-08] MEDS ORDERED: SODI44SP NAS (10:36)
[2018-07-08] MEDS ORDERED: POTASSIUM CHLORIDE 20 MEQ TAB.ER.PRT PO ONE (11:00)
== END 2018-07-08 13:11 | disposition home or self-care (01) ==
LOC: ED 04:20 → INTOOBSV 04:34 → EDIP 04:34 → 5SO 05:19 → 3NE 07-07 13:51
PROVIDERS: ADMIT Hospitalist; ATTEND Hospitalist
DX: R07.89 Other chest pain (principal); E11.9 Type 2 diabetes mellitus without complications; I11.0 Hypertensive heart disease with heart failure; I50.9 Heart failure, unspecified; K57.90 Diverticulosis of intestine, part unspecified, without perforation or abscess without bleeding; F31.9 Bipolar disorder, unspecified; I25.10 Atherosclerotic heart disease of native coronary artery without angina pectoris; E78.5 Hyperlipidemia, unspecified; E78.00 Pure hypercholesterolemia, unspecified; F12.90 Cannabis use, unspecified, uncomplicated; K21.9 Gastro-esophageal reflux disease without esophagitis; I25.5 Ischemic cardiomyopathy; I25.2 Old myocardial infarction; K40.90 Unilateral inguinal hernia, without obstruction or gangrene, not specified as recurrent; R09.81 Nasal congestion; G89.29 Other chronic pain; Z82.49 Family history of ischemic heart disease and other diseases of the circulatory system; Z90.49 Acquired absence of other specified parts of digestive tract; Z95.1 Presence of aortocoronary bypass graft; Z95.5 Presence of coronary angioplasty implant and graft; Z95.810 Presence of automatic (implantable) cardiac defibrillator
CPT/HCPCS: 36415; 71045; 74177; 80048; 80053; 81001; 82040; 82962; 83690; 83880; 84484; 85025; 85610; 87324; 93005; 96372; 96374; 96375; 96376; 99284; G0378; J1815; J2270; J2405; J7030; Q9967; 99285

== ENCOUNTER 2018-07-16 10:04 | Emergency (ER) | payer MEDICARE, MEDICAID ==
[~2018-07-16] VITALS: Ht 165.1 cm; Wt 84.0 kg
[~2018-07-16 10:04] MED LIST changes: +SODI44SP NAS
[2018-07-16 11:41] LABS: ALANINE AMINOTRANSFERASE 22 U/L (12-78); ALBUMIN 3.5 g/dL (3.4-5.0); ANION GAP 9 mmol/L (5-15); CHLORIDE 107 mmol/L (98-107); CREATININE 1.01 mg/dL (0.7-1.3)
[2018-07-16 11:42] LABS: BASOPHILS # (AUTO) 0.02 x10^3/uL (0-0.1); BASOPHILS % (AUTO) 0 % (0-1); EOSINOPHILS # (AUTO) 0.09 x10^3/uL (0-0.4); EOSINOPHILS % (AUTO) 1 % (1-7); LYMPHOCYTES # (AUTO) 1.56 x10^3/uL (1-3.4); LYMPHOCYTES % (AUTO) 19 % (22-44); MD NO; MEAN CORPUSCULAR HEMOGLOBIN 29.7 pg (27.5-34.5); MEAN CORPUSCULAR HGB CONC 32.9 g/dL (33.2-36.2); MEAN CORPUSCULAR VOLUME 90.2 fL (81-97); MEAN PLATELET VOLUME 8.8 fL (7.4-10.4); MONOCYTES # (AUTO) 0.73 x10^3/uL (0.2-0.8); MONOCYTES % (AUTO) 9 % (2-9); NEUTROPHILS # (AUTO) 5.77 x10^3/uL (1.8-6.8); NEUTROPHILS % (AUTO) 71 % (42-75); PLATELET COUNT 313 x10^3/uL (130-400); RED BLOOD COUNT 4.19 x10^6/uL (4.38-5.82); RED CELL DISTRIBUTION WIDTH 14.4 % (9.4-14.8); TROPONIN I < 0.015 ng/mL (0.000-0.045)
[2018-07-16 11:43] LABS: ALKALINE PHOSPHATASE 102 U/L (45-117); BILIRUBIN,TOTAL 0.3 mg/dL (0.2-1.0); TOTAL PROTEIN 7.2 g/dL (6.4-8.2)
[2018-07-16] MEDS ORDERED: OMNIPAQUE 350 MG/ML, 100ML BOTTLE ONE (11:45)
[2018-07-16 11:54] LABS: INTERNATIONAL NORMALIZED RATIO 1.08 (0.93-1.1); PROTHROMBIN TIME 11.4 Seconds (9.6-11.5)
[2018-07-16] MEDS ORDERED: MORPHINE SULFATE 4 MG/ML, 1ML IVPush PRN (12:00)
[2018-07-16] MEDS ORDERED: ONDANSETRON 2MG/ML, 2ML IVPush ONE (12:00)
[2018-07-16] MEDS ORDERED: ONDANSETRON 2MG/ML, 2ML ONE (12:22)
[2018-07-16] MEDS ORDERED: MORPHINE SULFATE 4 MG/ML, 1ML ONE (12:23)
[2018-07-16] MEDS ORDERED: DICYCLOMINE 10 MG/ML, 2ML IM ONE (13:00)
[2018-07-16 13:03] LABS: MICROSCOPIC NOT IND
[2018-07-16 13:05] LABS: CULTURE INDICATED? NO
[2018-07-16] MEDS ORDERED: DICYCLOMINE 10 MG/ML, 2ML ONE (13:25)
[2018-07-16 13:50] VITALS: BP 124/79
== END 2018-07-16 13:53 | disposition home or self-care (01) ==
LOC: ED 10:33
DX: R10.84 Generalized abdominal pain (principal); R07.9 Chest pain, unspecified; G89.29 Other chronic pain; E11.9 Type 2 diabetes mellitus without complications; E78.5 Hyperlipidemia, unspecified; I11.0 Hypertensive heart disease with heart failure; I50.9 Heart failure, unspecified; I25.2 Old myocardial infarction; I25.10 Atherosclerotic heart disease of native coronary artery without angina pectoris; Z90.49 Acquired absence of other specified parts of digestive tract; Z95.1 Presence of aortocoronary bypass graft; Z95.0 Presence of cardiac pacemaker
CPT/HCPCS: 36415; 74177; 80053; 81003; 83690; 84484; 85025; 85610; 93005; 96372; 96374; 96375; 99284; J0500; J2405; Q9967

== ENCOUNTER 2018-08-03 19:10 | Observation (INO) | payer MEDICARE, MEDICAID ==
[~2018-08-03] VITALS: Ht 165.1 cm; Wt 85.2 kg
[~2018-08-03 19:10] MED LIST changes: -AMLO10TA6 PO; +AMLO10TA8 PO; -GABA600T2 PO; +GABA600T7 PO
--- NOTE | 2018-08-03 19:24 | NUR ---
KAUR QUILES AT BEDSIDE
--- NOTE | 2018-08-03 19:24 | NUR ---
PT COMPLAINS OF CP THAT STARTED A COUPLE HOURS AGO AND ABD, BACK PAIN THAT STARTED A COUPLE DAYS AGO. DESCRIBES THE CP MIDSTERNAL AND FEELS LIKE A TIGHTNESS ACROSS CHEST. FELT NAUSEOUS DURING EVENT, PALPITATIONS, SOB. DENIES AGGREVATING OR ALLEVIATING FACTORS. EKG OBTAINED UPON ARRIVAL. PT PLACED ON CONT, SPO2, BP AND USER EXPERIENCE DEVELOPER
[2018-08-03] MEDS ORDERED: NITROGLYCERIN OINT 2%, 1GM TP ONE ×2 (19:43→20:00)
[2018-08-03] MEDS ORDERED: MORPHINE SULFATE 4 MG/ML, 1ML ONE (19:44)
[2018-08-03 19:55] LABS: BASOPHILS # (AUTO) 0.05 x10^3/uL (0-0.1); BASOPHILS % (AUTO) 1 % (0-1); EOSINOPHILS # (AUTO) 0.26 x10^3/uL (0-0.4); EOSINOPHILS % (AUTO) 3 % (1-7); LYMPHOCYTES # (AUTO) 2.32 x10^3/uL (1-3.4); LYMPHOCYTES % (AUTO) 23 % (22-44); MD NO; MEAN CORPUSCULAR HEMOGLOBIN 30.3 pg (27.5-34.5); MEAN CORPUSCULAR HGB CONC 33.3 g/dL (33.2-36.2); MONOCYTES # (AUTO) 0.76 x10^3/uL (0.2-0.8); MONOCYTES % (AUTO) 8 % (2-9); NEUTROPHILS # (AUTO) 6.78 x10^3/uL (1.8-6.8); NEUTROPHILS % (AUTO) 67 % (42-75); PLATELET COUNT 250 x10^3/uL (130-400); RED CELL DISTRIBUTION WIDTH 14.9 % (9.4-14.8)
[2018-08-03] MEDS ORDERED: MORPHINE SULFATE 4 MG/ML, 1ML IVPush ONE (20:00)
[2018-08-03 20:07] LABS: ALANINE AMINOTRANSFERASE 18 U/L (12-78); ANION GAP 7 mmol/L (5-15); CHLORIDE 109 mmol/L (98-107)
[2018-08-03 20:12] LABS: ALKALINE PHOSPHATASE 94 U/L (45-117); BILIRUBIN,TOTAL 0.4 mg/dL (0.2-1.0); TOTAL PROTEIN 6.8 g/dL (6.4-8.2)
--- NOTE | 2018-08-03 20:38 | NUR ---
KAUR QUILES AT BEDSIDE UPDATING PT ON POC
--- NOTE | 2018-08-03 20:39 | NUR ---
PT'S URINE SENT. PT RESTING IN GURNEY, RR EVEN AND UNLABORED. PT DENIES NEEDS ATT. PT ON CONT SPO2, BP, AND MAGNETIC PROSPECTING OPERATOR, VSS
[2018-08-03 20:43] LABS: MICROSCOPIC NOT IND
[2018-08-03 20:44] LABS: CULTURE INDICATED? NO
[2018-08-03] MEDS ORDERED: SODIUM CHLORIDE NASAL SPRAY 45ML BOTTLE NAS PRN (22:00)
--- NOTE | 2018-08-03 22:06 | NUR ---
REPORT GIVEN TO LORI GAY
[2018-08-03 22:26] VITALS: BP 119/77
[2018-08-03] MEDS ORDERED: MAGNESIUM SULFATE PMX 2GM/50ML 50 ML IV ONE (22:30)
[2018-08-03] MEDS: TRAZODONE 50MG TABLET PO SCH (22:53)
[2018-08-03] MEDS: ATORVASTATIN 40 MG TABLET PO SCH (22:53)
[2018-08-03] MEDS: QUETIAPINE 100MG TABLET PO SCH (22:53)
[2018-08-03] MEDS: HEPARIN 5,000 UNITS/ML, 1ML SQ SCH (22:54)
[2018-08-03] MEDS: NS + 20MEQ KCL 1,000 ML IV SCH (22:54)
[2018-08-03] MEDS ORDERED: ISOSORBIDE MONONITRATE ER 30 MG TABLET PO ONE (23:30)
[2018-08-03] MEDS ORDERED: NITROGLYCERIN 0.4 MG BOTTLE (25 TABS) SL PRN (23:30)
[2018-08-03] MEDS ORDERED: NITROGLYCERIN 0.4 MG/SPRAY SL PRN (23:30)
[2018-08-03 23:50] LABS: TROPONIN I < 0.015 ng/mL (0.000-0.045)
[2018-08-04 00:01] VITALS: BP 117/77
[2018-08-04 01:37] VITALS: BP 96/66
[2018-08-04] MEDS: HEPARIN 5,000 UNITS/ML, 1ML SQ SCH ×3 (06:00→21:57)
[2018-08-04 06:05] LABS: BASOPHILS # (AUTO) 0.03 x10^3/uL (0-0.1); BASOPHILS % (AUTO) 0 % (0-1); EOSINOPHILS % (AUTO) 4 % (1-7); LYMPHOCYTES # (AUTO) 2.67 x10^3/uL (1-3.4); LYMPHOCYTES % (AUTO) 34 % (22-44); MD NO; MEAN CORPUSCULAR HEMOGLOBIN 30.2 pg (27.5-34.5); MEAN CORPUSCULAR HGB CONC 32.9 g/dL (33.2-36.2); MEAN CORPUSCULAR VOLUME 91.6 fL (81-97); MEAN PLATELET VOLUME 8.4 fL (7.4-10.4); MONOCYTES # (AUTO) 0.54 x10^3/uL (0.2-0.8); MONOCYTES % (AUTO) 7 % (2-9); NEUTROPHILS # (AUTO) 4.23 x10^3/uL (1.8-6.8); NEUTROPHILS % (AUTO) 54 % (42-75); PLATELET COUNT 222 x10^3/uL (130-400); RED BLOOD COUNT 3.82 x10^6/uL (4.38-5.82); RED CELL DISTRIBUTION WIDTH 14.4 % (9.4-14.8)
[2018-08-04 06:13] LABS: CHLORIDE 110 mmol/L (98-107)
[2018-08-04 06:23] LABS: ANION GAP 6 mmol/L (5-15); CALCIUM 8.1 mg/dL (8.5-10.1); CREATININE 0.97 mg/dL (0.7-1.3); TROPONIN I < 0.015 ng/mL (0.000-0.045)
[2018-08-04 06:46] VITALS: BP 166/91
[2018-08-04 06:51] VITALS: BP 106/76
[2018-08-04] MEDS: INSULIN LISPRO 100 UNITS/ML, PEN SQ-INSULIN SCH ×4 (08:14→21:00)
[2018-08-04] MEDS ORDERED: ACETAMINOPHEN 325 MG TABLET ONE (08:37)
[2018-08-04 08:54] LABS: ALANINE AMINOTRANSFERASE 17 U/L (12-78); ALBUMIN 2.9 g/dL (3.4-5.0)
[2018-08-04 08:57] LABS: ALKALINE PHOSPHATASE 86 U/L (45-117); BILIRUBIN,TOTAL 0.3 mg/dL (0.2-1.0); TOTAL PROTEIN 6.2 g/dL (6.4-8.2)
[2018-08-04 09:05] LABS: BILIRUBIN, DIRECT < 0.1 mg/dL (0.1-0.2); BILIRUBIN,INDIRECT 0.2 mg/dL (0.0-2.0)
[2018-08-04] MEDS: OMEPRAZOLE 20 MG CAPSULE.DR PO SCH (09:15)
[2018-08-04] MEDS: ACETAMINOPHEN 325 MG TABLET PO PRN ×2 (09:16→16:36)
[2018-08-04] MEDS: METOPROLOL SUCCINATE 100 MG TAB.ER.24H PO SCH (09:16)
[2018-08-04] MEDS: GABAPENTIN 300 MG CAPSULE PO SCH ×3 (09:16→21:56)
[2018-08-04] MEDS: ASPIRIN 81 MG TABLET CHEW PO SCH (09:17)
[2018-08-04] MEDS: LINAGLIPTIN 5 MG TAB PO SCH (09:17)
[2018-08-04] MEDS: TEMPLATE NON-FORMULARY MED. (Escitalopram Oxalate** 20 MG) HOMEMEDPO SCH (09:17)
[2018-08-04] MEDS: LISINOPRIL 10 MG TABLET PO SCH (09:17)
[2018-08-04] MEDS: NS + 20MEQ KCL 1,000 ML IV SCH (14:53)
[2018-08-04 16:30] VITALS: BP 130/81
[2018-08-04] MEDS ORDERED: MAALOX/HYOSCYAMINE/LIDOCAINE 45 ML BTL PO ONE (18:00)
[2018-08-04] MEDS: DICYCLOMINE 10 MG CAPSULE PO PRN (18:16)
[2018-08-04 21:03] VITALS: BP 111/72
[2018-08-04] MEDS: ATORVASTATIN 40 MG TABLET PO SCH (21:56)
[2018-08-04] MEDS: TRAZODONE 50MG TABLET PO SCH (21:56)
[2018-08-04] MEDS: QUETIAPINE 100MG TABLET PO SCH (21:57)
[2018-08-05] MEDS: NS + 20MEQ KCL 1,000 ML IV SCH ×2 (03:30→16:28)
[2018-08-05 03:51] VITALS: BP 134/75
[2018-08-05] MEDS: HEPARIN 5,000 UNITS/ML, 1ML SQ SCH ×3 (05:56→23:51)
[2018-08-05 06:05] LABS: BASOPHILS # (AUTO) 0.03 x10^3/uL (0-0.1); BASOPHILS % (AUTO) 1 % (0-1); EOSINOPHILS # (AUTO) 0.31 x10^3/uL (0-0.4); EOSINOPHILS % (AUTO) 4 % (1-7); LYMPHOCYTES # (AUTO) 2.44 x10^3/uL (1-3.4); LYMPHOCYTES % (AUTO) 34 % (22-44); MD NO; MEAN CORPUSCULAR HEMOGLOBIN 30.4 pg (27.5-34.5); MEAN CORPUSCULAR HGB CONC 33.4 g/dL (33.2-36.2); MEAN CORPUSCULAR VOLUME 90.9 fL (81-97); MEAN PLATELET VOLUME 8.4 fL (7.4-10.4); MONOCYTES # (AUTO) 0.52 x10^3/uL (0.2-0.8); MONOCYTES % (AUTO) 7 % (2-9); NEUTROPHILS # (AUTO) 3.91 x10^3/uL (1.8-6.8); NEUTROPHILS % (AUTO) 54 % (42-75); PLATELET COUNT 207 x10^3/uL (130-400); RED BLOOD COUNT 3.95 x10^6/uL (4.38-5.82); RED CELL DISTRIBUTION WIDTH 14.7 % (9.4-14.8)
[2018-08-05 06:39] LABS: CHLORIDE 110 mmol/L (98-107)
[2018-08-05 07:14] LABS: ALANINE AMINOTRANSFERASE 17 U/L (12-78); ALKALINE PHOSPHATASE 91 U/L (45-117); ANION GAP 7 mmol/L (5-15); BILIRUBIN,TOTAL 0.3 mg/dL (0.2-1.0); CALCIUM 8.3 mg/dL (8.5-10.1); CREATININE 1.16 mg/dL (0.7-1.3); TOTAL PROTEIN 6.5 g/dL (6.4-8.2)
[2018-08-05] MEDS: INSULIN LISPRO 100 UNITS/ML, PEN SQ-INSULIN SCH ×4 (07:46→20:55)
[2018-08-05 08:00] VITALS: BP 146/92
[2018-08-05 08:33] VITALS: BP 132/89
[2018-08-05] MEDS: ACETAMINOPHEN 325 MG TABLET PO PRN ×2 (08:34→16:53)
[2018-08-05] MEDS: TEMPLATE NON-FORMULARY MED. (Escitalopram Oxalate** 20 MG) HOMEMEDPO SCH (08:34)
[2018-08-05] MEDS: OMEPRAZOLE 20 MG CAPSULE.DR PO SCH (08:34)
[2018-08-05] MEDS: LISINOPRIL 10 MG TABLET PO SCH (08:35)
[2018-08-05] MEDS: GABAPENTIN 300 MG CAPSULE PO SCH ×3 (08:35→20:55)
[2018-08-05] MEDS: ASPIRIN 81 MG TABLET CHEW PO SCH (08:35)
[2018-08-05] MEDS: METOPROLOL SUCCINATE 100 MG TAB.ER.24H PO SCH (08:35)
[2018-08-05] MEDS: LINAGLIPTIN 5 MG TAB PO SCH (08:35)
[2018-08-05 09:05] LABS: MICROSCOPIC NOT IND
[2018-08-05 09:06] LABS: CULTURE INDICATED? NO
[2018-08-05] MEDS: DICYCLOMINE 10 MG CAPSULE PO PRN (09:07)
[2018-08-05] MEDS ORDERED: OMNIPAQUE 350 MG/ML, 100ML BOTTLE ONE (10:39)
[2018-08-05 12:54] VITALS: BP 128/81
[2018-08-05] MEDS ORDERED: MAALOX/HYOSCYAMINE/LIDOCAINE 45 ML BTL PO PRN (14:30)
[2018-08-05 14:41] LABS: CLOSTRIDIUM DIFFICILE ANTIGEN NEGATIVE; CLOSTRIDIUM DIFFICILE TOXIN NEGATIVE (Negative)
[2018-08-05] MEDS ORDERED: METHOCARBAMOL 500 MG TABLET PO PRN (18:30)
[2018-08-05 19:34] VITALS: BP 136/84
[2018-08-05] MEDS: ATORVASTATIN 40 MG TABLET PO SCH (20:55)
[2018-08-05] MEDS: TRAZODONE 50MG TABLET PO SCH (20:55)
[2018-08-05] MEDS: QUETIAPINE 100MG TABLET PO SCH (20:55)
[2018-08-05] MEDS ORDERED: GABAPENTIN 100 MG CAPSULE PO SCH (21:00)
[2018-08-06 02:55] VITALS: BP 144/77
[2018-08-06] MEDS: GABAPENTIN 300 MG CAPSULE PO SCH ×2 (05:06→12:15)
[2018-08-06 06:31] LABS: CHLORIDE 107 mmol/L (98-107)
[2018-08-06] MEDS: INSULIN LISPRO 100 UNITS/ML, PEN SQ-INSULIN SCH ×2 (07:00→12:52)
[2018-08-06 07:02] LABS: ALANINE AMINOTRANSFERASE 22 U/L (12-78); ALBUMIN 3.3 g/dL (3.4-5.0); ALKALINE PHOSPHATASE 93 U/L (45-117); ANION GAP 10 mmol/L (5-15); BILIRUBIN,TOTAL 0.5 mg/dL (0.2-1.0); CALCIUM 8.7 mg/dL (8.5-10.1); CREATININE 1.09 mg/dL (0.7-1.3); TOTAL PROTEIN 7.1 g/dL (6.4-8.2)
[2018-08-06 07:14] VITALS: BP 182/84
[2018-08-06] MEDS: METOPROLOL SUCCINATE 100 MG TAB.ER.24H PO SCH (08:29)
[2018-08-06] MEDS: LINAGLIPTIN 5 MG TAB PO SCH (08:29)
[2018-08-06] MEDS: ASPIRIN 81 MG TABLET CHEW PO SCH (08:30)
[2018-08-06] MEDS: HEPARIN 5,000 UNITS/ML, 1ML SQ SCH (08:30)
[2018-08-06] MEDS: LISINOPRIL 10 MG TABLET PO SCH (08:30)
[2018-08-06] MEDS: OMEPRAZOLE 20 MG CAPSULE.DR PO SCH (08:30)
[2018-08-06] MEDS: ACETAMINOPHEN 325 MG TABLET PO PRN (12:15)
[2018-08-06] MEDS ORDERED: METH500T7 PO (14:02)
[2018-08-06] MEDS ORDERED: Maalox/Hyoscyamine/Lidocaine PO (14:02)
[2018-08-06] MEDS ORDERED: DICY10CA3 PO (14:02)
[2018-08-06 14:28] VITALS: BP 117/78
== END 2018-08-06 16:08 | disposition home or self-care (01) ==
LOC: ED 19:34 → INTOOBSV 21:14 → EDIP 21:14 → 5SO 22:27 → DCLOUNGE 08-06 15:55
PROVIDERS: ADMIT Hospitalist; ATTEND Hospitalist
DX: R07.89 Other chest pain (principal); E11.9 Type 2 diabetes mellitus without complications; E66.9 Obesity, unspecified; E78.5 Hyperlipidemia, unspecified; E83.42 Hypomagnesemia; F31.9 Bipolar disorder, unspecified; F15.90 Other stimulant use, unspecified, uncomplicated; F12.90 Cannabis use, unspecified, uncomplicated; F41.9 Anxiety disorder, unspecified; G89.29 Other chronic pain; I10 Essential (primary) hypertension; I25.2 Old myocardial infarction; I25.110 Atherosclerotic heart disease of native coronary artery with unstable angina pectoris; K21.9 Gastro-esophageal reflux disease without esophagitis; Z87.891 Personal history of nicotine dependence; Z95.1 Presence of aortocoronary bypass graft; Z95.810 Presence of automatic (implantable) cardiac defibrillator
CPT/HCPCS: 36415; 71046; 72131; 74177; 80048; 80053; 80076; 81003; 82962; 83690; 83735; 83880; 84100; 84484; 85025; 87324; 89055; 93005; 96365; 96366; 96372; 96375; 97161; 99284; G0378; J1644; J1815; J3475; J3480; Q9967; 96374; 99285

== ENCOUNTER 2018-08-17 06:05 | Emergency (ER) | payer MEDICARE, MEDICAID ==
[~2018-08-17] VITALS: Ht 165.1 cm; Wt 81.6 kg
[~2018-08-17 06:05] MED LIST changes: +DICY10CA3 PO
--- NOTE | 2018-08-17 06:10 | NUR ---
PT BIBA FROM HOME WHERE PT WAS AWOKE FROM HIS SLEEP AT APPROX 5AM WITH ABD PAIN AND CHEST PAIN. PT TOOK 1 NITRO AT HOME WITH NO RELIEF. PT DID NOT TAKE HIS ASPIRIN THIS AM YET OR ANY OTHER AM MEDS. PT REPORTS WORSE PAIN WITH PALPATION TO ABD AND CHEST. PT REPORTS CP 7/10 AT THIS TIME, DENIES SOB OR DIAPHORESIS. REPORTS PAIN SLIGHTLY MOVES TO L SHOULDER, PAIN REPORTED TO MIDSTERNUM CHEST. ABD PAIN DESCRIBED ALL OVER. PT REPORTS HAVING HEARTBURN LAST NIGHT BEFORE BED AFTER EATING A PIZZA. PT REPORTS NAUSEA, DENIES EMESIS OR DIARRHEA. PT A/OX4, BREATHING E/U, ABLE TO STAND AND TRANSFER HIMSELF INDEPENDENTLY [facility] PT BEING PLACED ON CARDIAC AND VS MONTIORING. EKG IN PROGRESS. IV PLACED PHOTOGRAPHIC ENGINEER. AWAITING MD DUONG.
--- NOTE | 2018-08-17 06:15 | NUR ---
EKG COMPLETED BY MEDIC TECHNICIAN.
--- NOTE | 2018-08-17 06:17 | NUR ---
PROVIDER TO BEDSIDE FOR PT EVAL COMPLETE. AWAITING ORDERS.
[2018-08-17] MEDS ORDERED: ONDANSETRON 2MG/ML, 2ML ONE (06:27)
[2018-08-17] MEDS ORDERED: ASPIRIN 81 MG TABLET CHEW ONE (06:28)
[2018-08-17] MEDS ORDERED: MORPHINE SULFATE 4 MG/ML, 1ML ONE (06:28)
[2018-08-17] MEDS ORDERED: ONDANSETRON 2MG/ML, 2ML IVPush ONE (06:30)
[2018-08-17] MEDS ORDERED: SODIUM CHLORIDE FLUSH 10ML SYR IVF ONE (06:30)
[2018-08-17] MEDS ORDERED: MORPHINE SULFATE 4 MG/ML, 1ML IVPush PRN (06:30)
[2018-08-17] MEDS ORDERED: ASPIRIN 81 MG TABLET CHEW PO ONE (06:30)
--- NOTE | 2018-08-17 06:30 | NUR ---
PT TO XRAY.
--- NOTE | 2018-08-17 06:42 | NUR ---
PT RECIEVED MEDS PER ORDERS, SEE EMAR. LAB AT BEDSIDE FOR PT BLOOD DRAW.
--- NOTE | 2018-08-17 06:48 | NUR ---
REPORT TO JACQUELINE SANDOVAL.
[2018-08-17 06:55] LABS: BASOPHILS # (AUTO) 0.03 x10^3/uL (0-0.1); BASOPHILS % (AUTO) 1 % (0-1); EOSINOPHILS # (AUTO) 0.18 x10^3/uL (0-0.4); EOSINOPHILS % (AUTO) 3 % (1-7); LYMPHOCYTES # (AUTO) 1.42 x10^3/uL (1-3.4); LYMPHOCYTES % (AUTO) 22 % (22-44); MD NO; MEAN CORPUSCULAR HEMOGLOBIN 29.6 pg (27.5-34.5); MEAN CORPUSCULAR VOLUME 89.9 fL (81-97); MEAN PLATELET VOLUME 8.6 fL (7.4-10.4); MONOCYTES % (AUTO) 8 % (2-9); NEUTROPHILS % (AUTO) 67 % (42-75); PLATELET COUNT 177 x10^3/uL (130-400); RED BLOOD COUNT 4.35 x10^6/uL (4.38-5.82); RED CELL DISTRIBUTION WIDTH 14.5 % (9.4-14.8)
[2018-08-17 07:06] LABS: ALANINE AMINOTRANSFERASE 23 U/L (12-78); ALBUMIN 3.6 g/dL (3.4-5.0); ANION GAP 9 mmol/L (5-15); CALCIUM 8.8 mg/dL (8.5-10.1); CHLORIDE 109 mmol/L (98-107); CREATININE 1.39 mg/dL (0.7-1.3)
[2018-08-17 07:11] LABS: ALKALINE PHOSPHATASE 112 U/L (45-117); BILIRUBIN,TOTAL 0.3 mg/dL (0.2-1.0); TOTAL PROTEIN 7.5 g/dL (6.4-8.2); TROPONIN I < 0.015 ng/mL (0.000-0.045)
--- NOTE | 2018-08-17 07:13 | NUR ---
Pt resting in bed with eyes closed, resp even and unlabored, NADN.
[2018-08-17] MEDS ORDERED: MAALOX/HYOSCYAMINE/LIDOCAINE 45 ML BTL ONE (07:30)
[2018-08-17] MEDS ORDERED: MAALOX/HYOSCYAMINE/LIDOCAINE 45 ML BTL PO ONE (07:30)
--- NOTE | 2018-08-17 07:33 | NUR ---
Pt medicated per MAR, denies other needs.
--- NOTE | 2018-08-17 07:46 | NUR ---
Pt states pain in stomach improved after medications given, states ready for dc.
[2018-08-17 07:47] VITALS: BP 139/88
== END 2018-08-17 07:49 | disposition home or self-care (01) ==
LOC: ED 07:17
DX: R07.89 Other chest pain (principal); K21.0 Gastro-esophageal reflux disease with esophagitis; E11.9 Type 2 diabetes mellitus without complications; E78.00 Pure hypercholesterolemia, unspecified; I11.0 Hypertensive heart disease with heart failure; I50.9 Heart failure, unspecified; F32.9 Major depressive disorder, single episode, unspecified; I25.2 Old myocardial infarction; I25.10 Atherosclerotic heart disease of native coronary artery without angina pectoris; Z90.49 Acquired absence of other specified parts of digestive tract; Z95.0 Presence of cardiac pacemaker; Z95.1 Presence of aortocoronary bypass graft
CPT/HCPCS: 36415; 71046; 80053; 83690; 83880; 84484; 85025; 93005; 96374; 96375; 99284; J2405

== ENCOUNTER 2018-09-26 13:34 | Emergency (ER) | payer MEDICARE, MEDICAID ==
[~2018-09-26] VITALS: Ht 165.1 cm; Wt 84.0 kg
[~2018-09-26 13:34] MED LIST changes: +SENN-177 PO; -SENN1TAB8 PO
--- NOTE | 2018-09-26 13:45 | NUR ---
PT BIB [facility] FOR CP THAT STARTED ALL OF A SUDDEN AROUND 1130, THAT IS CONSTANT, LEFT UPPER CHEST, RADIATING TO LEFT ARM AND BACK. REPORTS NAUSEA AND DIZZINESS. PT STOPPED TAKING IN METOPROLOL 4 DAYS AGO DUE TO BEING DIZZY. BP 154/64, HR 90 NS, O2 SAT 94% RA, FS 158. PT WAS GIVEN 324MG ASPIRIN, 0.4 MG NITRO, AND 4 MG OF ZOFRAN. REPORTS NAUSEA IS DECREASED AND PAIN HAS DECREASED TO A 7 ON THE PAIND SCALE. PT IS ALERT, ORIENTED, WITH NAD. PT IS CONNECTED TO THE MONITOR. CALL LIGHT WITHIN REACH. PA AT BEDSIDE.
[2018-09-26 14:16] LABS: BASOPHILS # (AUTO) 0.03 x10^3/uL (0-0.1); BASOPHILS % (AUTO) 0 % (0-1); EOSINOPHILS # (AUTO) 0.09 x10^3/uL (0-0.4); EOSINOPHILS % (AUTO) 1 % (1-7); LYMPHOCYTES # (AUTO) 1.51 x10^3/uL (1-3.4); LYMPHOCYTES % (AUTO) 12 % (22-44); MD NO; MEAN CORPUSCULAR HEMOGLOBIN 29.2 pg (27.5-34.5); MEAN CORPUSCULAR HGB CONC 32.7 g/dL (33.2-36.2); MEAN CORPUSCULAR VOLUME 89.4 fL (81-97); MEAN PLATELET VOLUME 8.2 fL (7.4-10.4); MONOCYTES # (AUTO) 0.69 x10^3/uL (0.2-0.8); MONOCYTES % (AUTO) 6 % (2-9); NEUTROPHILS % (AUTO) 81 % (42-75); PLATELET COUNT 189 x10^3/uL (130-400); RED BLOOD COUNT 4.65 x10^6/uL (4.38-5.82); RED CELL DISTRIBUTION WIDTH 15.7 % (9.4-14.8)
[2018-09-26] MEDS ORDERED: KETOROLAC 30 MG/1 ML ONE (14:21)
--- NOTE | 2018-09-26 14:26 | NUR ---
PT MEDICATED PER ORDER. PT TOLERATED WELL.
[2018-09-26 14:27] LABS: ALBUMIN 3.5 g/dL (3.4-5.0); ANION GAP 6 mmol/L (5-15); CALCIUM 8.9 mg/dL (8.5-10.1); CHLORIDE 110 mmol/L (98-107); CREATININE 1.12 mg/dL (0.7-1.3)
[2018-09-26 14:30] LABS: TROPONIN I < 0.015 ng/mL (0.000-0.045)
[2018-09-26] MEDS ORDERED: KETOROLAC 30 MG/1 ML IM ONE (14:30)
--- NOTE | 2018-09-26 15:08 | NUR ---
Allison cannon in ED - 09/26/18 at 1508 by [email or web address] BOTTLE SELECTOR TO BEDSIDE. VSS. NO NEEDS AT THIS TIME.
--- NOTE | 2018-09-26 15:25 | NUR ---
PT IS RESTING IN BED, RESPIRATIONS EQUAL AND NON LABORED. NAD. PT IS CONNECTED TO THE MONITOR. CALL LIGHT WITHIN REACH.
[2018-09-26 15:48] LABS: TROPONIN I < 0.015 ng/mL (0.000-0.045)
[2018-09-26 16:43] VITALS: BP 124/87
--- NOTE | 2018-09-26 16:43 | NUR ---
Patient given discharge instructions and they have confirmed that they understand the instructions. Patient ambulatory with steady gait.
== END 2018-09-26 16:45 | disposition home or self-care (01) ==
LOC: ED 14:08
DX: R07.89 Other chest pain (principal); E78.00 Pure hypercholesterolemia, unspecified; I50.9 Heart failure, unspecified; I25.2 Old myocardial infarction; I25.5 Ischemic cardiomyopathy; I25.10 Atherosclerotic heart disease of native coronary artery without angina pectoris; E78.5 Hyperlipidemia, unspecified; I11.0 Hypertensive heart disease with heart failure; E11.21 Type 2 diabetes mellitus with diabetic nephropathy; E66.9 Obesity, unspecified
CPT/HCPCS: 36415; 71045; 80048; 82040; 84484; 85025; 93005; 96372; 99284; J1885

== ENCOUNTER 2018-09-29 08:28 | Emergency (ER) | payer MEDICARE, MEDICAID ==
[~2018-09-29] VITALS: Ht 165.1 cm; Wt 84.0 kg
[2018-09-29 09:09] LABS: BASOPHILS # (AUTO) 0.05 x10^3/uL (0-0.1); BASOPHILS % (AUTO) 0 % (0-1); EOSINOPHILS # (AUTO) 0.19 x10^3/uL (0-0.4); EOSINOPHILS % (AUTO) 2 % (1-7); LYMPHOCYTES # (AUTO) 1.59 x10^3/uL (1-3.4); LYMPHOCYTES % (AUTO) 13 % (22-44); MD NO; MEAN CORPUSCULAR HEMOGLOBIN 29.7 pg (27.5-34.5); MEAN CORPUSCULAR HGB CONC 33.2 g/dL (33.2-36.2); MEAN CORPUSCULAR VOLUME 89.5 fL (81-97); MEAN PLATELET VOLUME 8.1 fL (7.4-10.4); MONOCYTES # (AUTO) 0.64 x10^3/uL (0.2-0.8); MONOCYTES % (AUTO) 5 % (2-9); NEUTROPHILS # (AUTO) 9.55 x10^3/uL (1.8-6.8); NEUTROPHILS % (AUTO) 80 % (42-75); PLATELET COUNT 172 x10^3/uL (130-400); RED BLOOD COUNT 4.46 x10^6/uL (4.38-5.82); RED CELL DISTRIBUTION WIDTH 15.5 % (9.4-14.8)
[2018-09-29 09:20] LABS: ALANINE AMINOTRANSFERASE 27 U/L (12-78); ALBUMIN 3.3 g/dL (3.4-5.0); ANION GAP 7 mmol/L (5-15); CALCIUM 8.8 mg/dL (8.5-10.1); CHLORIDE 105 mmol/L (98-107); CREATININE 0.98 mg/dL (0.7-1.3)
[2018-09-29 09:24] LABS: ALKALINE PHOSPHATASE 101 U/L (45-117); BILIRUBIN,TOTAL 0.4 mg/dL (0.2-1.0); TOTAL PROTEIN 7.3 g/dL (6.4-8.2); TROPONIN I 0.016 ng/mL (0.000-0.045)
[2018-09-29] MEDS ORDERED: ACETAMINOPHEN 325 MG TABLET PO ONE (09:30)
[2018-09-29] MEDS ORDERED: ACETAMINOPHEN 325 MG TABLET ONE (09:39)
--- NOTE | 2018-09-29 09:43 | NUR ---
PT AMBULATORY TO BATHROOM WITH STEADY GAIT FOR URINE SAMPLE.
[2018-09-29 10:06] LABS: MICROSCOPIC AUTO
[2018-09-29 10:29] LABS: CULTURE INDICATED? NO
--- NOTE | 2018-09-29 11:26 | NUR ---
THIS FLOAT RN TO BEDSIDE TO DC PT FOR PRIMARY RN, JESÚS. PT VERBALIZED UNDERSTANDING TO DC INSTRUCTIONS. AMBULATORY TO CHECKOUT C STEADY GAIT USING CANE FROM HOME. VSS. ATTEMPTED TO CONTACT [facility] FOR PT TRANSPORT HOME, PER MTM PT HAS MEDICARE AND CAN'T RECIEVE THIS BENEFIT. TAXI VOUCHER PROVIDED.
[2018-09-29 11:27] VITALS: BP 176/77
== END 2018-09-29 11:29 | disposition home or self-care (01) ==
LOC: ED 08:57
DX: R07.9 Chest pain, unspecified (principal); R10.84 Generalized abdominal pain; R35.0 Frequency of micturition; K21.9 Gastro-esophageal reflux disease without esophagitis; I11.0 Hypertensive heart disease with heart failure; I25.10 Atherosclerotic heart disease of native coronary artery without angina pectoris; E11.9 Type 2 diabetes mellitus without complications; E78.00 Pure hypercholesterolemia, unspecified; I25.2 Old myocardial infarction; F32.9 Major depressive disorder, single episode, unspecified; E11.22 Type 2 diabetes mellitus with diabetic chronic kidney disease; N18.9 Chronic kidney disease, unspecified; E66.9 Obesity, unspecified; Z68.30 Body mass index [BMI] 30.0-30.9, adult; Z72.9 Problem related to lifestyle, unspecified; Z90.49 Acquired absence of other specified parts of digestive tract; Z95.0 Presence of cardiac pacemaker
CPT/HCPCS: 36415; 71046; 80053; 81001; 83690; 84484; 85025; 93005; 99284

== ENCOUNTER 2018-10-11 15:16 | Inpatient (IN) | payer MEDICARE, MEDICAID ==
[~2018-10-11] VITALS: Ht 165.1 cm; Wt 89.2 kg
--- NOTE | 2018-10-11 15:16 | NUR ---
REPORT RECEIVED FROM [facility]- PT STEPHANIE C/O CP "FOR A COUPLE DAYS". PT DESCRIBES A "CRUSHING" PAIN, RATED AT A CONSTANT 8/10, AND RADIATING TO ABDOMEN AND LOWER BACK. PT STATES HE WAS LYING DOWN DURING ONSET. [facility] ADMINISTERED 325MG ASA AND 0.4MG NTG, WITH NO RELIEF. PTS INITIAL PRESSURE WAS 195/100 BUT DECREASED TO 132/87 AFTER NTG ADMINISTRATION. PT IS ALERT, ORIENTED AND IN NO OBVIOUS OUTWARD SIGNS OF DISTRESS. 12 LEAD IS OBTAINED UPON HIS ARRIVAL AND HE IS CONNECTED TO ALL MONITORING DEVICES. HX: HIGH CHOLESTEROL, HTN, PACEMAKER, BYPASS, STENTS. ALLERGIES: NKDA MEDS: ATORVASTATIN, TRAZODONE, METOPROLOL, OMEPRAZOLE, ASA, ESCATALOPRAM, GABAPENTIN.
--- NOTE | 2018-10-11 15:25 | NUR ---
RECEIVED BEDSIDE REPORT AND CARE FROM DINORAH SANDOVAL AND WALLY. CARE ASSUMED. DR. GU AT BEDSIDE FOR EVALUATION. AWAITING ORDERS. BP ELEVATED, HX HTN, DR. GU AWARE. ALL MONITORS IN PLACE. CALL LIGHT IN REACH. FALL PRECAUTIONS IN PLACE. ISOLATION PRECAUTIONS IN PLACE DUE TO REPORT OF DIARRHEA.
--- NOTE | 2018-10-11 15:40 | NUR ---
LAB AT BEDSIDE
[2018-10-11] MEDS ORDERED: ONDANSETRON 2MG/ML, 2ML ONE (15:46)
[2018-10-11] MEDS ORDERED: NITROGLYCERIN SINGLE TAB 0.4 MG SL ONE (15:47)
[2018-10-11] MEDS ORDERED: METOPROLOL 1 MG/ML, 5ML ONE (15:47)
[2018-10-11 15:56] LABS: BASOPHILS # (AUTO) 0.04 x10^3/uL (0-0.1); BASOPHILS % (AUTO) 1 % (0-1); EOSINOPHILS % (AUTO) 1 % (1-7); LYMPHOCYTES # (AUTO) 1.19 x10^3/uL (1-3.4); LYMPHOCYTES % (AUTO) 16 % (22-44); MD NO; MEAN CORPUSCULAR HEMOGLOBIN 29.9 pg (27.5-34.5); MEAN CORPUSCULAR HGB CONC 33.7 g/dL (33.2-36.2); MEAN CORPUSCULAR VOLUME 88.7 fL (81-97); MONOCYTES # (AUTO) 0.91 x10^3/uL (0.2-0.8); MONOCYTES % (AUTO) 12 % (2-9); NEUTROPHILS # (AUTO) 5.33 x10^3/uL (1.8-6.8); NEUTROPHILS % (AUTO) 71 % (42-75); PLATELET COUNT 205 x10^3/uL (130-400); RED BLOOD COUNT 4.81 x10^6/uL (4.38-5.82); RED CELL DISTRIBUTION WIDTH 15.3 % (9.4-14.8)
--- NOTE | 2018-10-11 15:57 | NUR ---
1ST DOSE OF NITRO ADMIN TO PT ASSISTANT DISTRICT ATTORNEY TO ER FROM EMS, PAIN WAS NOT RELIEVED PER PT. PT ALSO GIVEN 325MG ASA BY EMS, 162MG ASA ORDERED BY DR. WHITEHEAD HELD PER MD. THIS RN ADMINISTERING 1ST NITRO DOSE IN ER AT THIS TIME PER DR. GU ORDER FOR 03/05 CP. BP 152/112 HR 86.
[2018-10-11] MEDS ORDERED: ONDANSETRON 2MG/ML, 2ML IVPush ONE (16:00)
[2018-10-11] MEDS ORDERED: NITROGLYCERIN SINGLE TAB 0.4 MG SL PRN (16:00)
[2018-10-11] MEDS ORDERED: SODIUM CHLORIDE FLUSH 10ML SYR IVF ONE (16:00)
[2018-10-11] MEDS ORDERED: METOPROLOL 1 MG/ML, 5ML IVPush PRN (16:00)
[2018-10-11] MEDS ORDERED: ASPIRIN 81 MG TABLET CHEW PO ONE (16:00)
[2018-10-11 16:02] LABS: INTERNATIONAL NORMALIZED RATIO 1.02 (0.93-1.1); PROTHROMBIN TIME 10.7 Seconds (9.6-11.5)
[2018-10-11 16:03] LABS: ALANINE AMINOTRANSFERASE 22 U/L (12-78); ALBUMIN 3.6 g/dL (3.4-5.0); ANION GAP 9 mmol/L (5-15); CHLORIDE 108 mmol/L (98-107); CREATININE 1.09 mg/dL (0.7-1.3)
--- NOTE | 2018-10-11 16:06 | NUR ---
PT REPORTS "NITRO NOT HELPING, DOESN'T REALLY WORK FOR ME, I DON'T WANT TO TAKE IT ANYMORE, IT JUST MAKES ME DIZZY." PT REQUESTING TO AMBULATE TO RESTROOM FOR BM.
[2018-10-11 16:08] LABS: ALKALINE PHOSPHATASE 114 U/L (45-117); BILIRUBIN,TOTAL 0.6 mg/dL (0.2-1.0); TROPONIN I < 0.015 ng/mL (0.000-0.045)
--- NOTE | 2018-10-11 16:22 | NUR ---
ASSISTED PT TO RESTROOM, UNABLE TO HAVE BM, CLEAN CATCH UA COLLECTED IF NEEDED, ASSISTED BACK TO BED, RESTING COMFORTABLY, AMBULATED WELL WITH OWN CANE, GAIT STEADY. BP 126/84, METOPROLOL HELD PER DR. GU. DISCUSSED PT REFUSAL OF ADDITIONAL NITRO WITH DR. GU, AWARE, PT REQUESTING MORPHINE FOR PAIN. AWAITING ADDITIONAL ORDERS.
[2018-10-11] MEDS ORDERED: MORPHINE SULFATE 4 MG/ML, 1ML ONE ×2 (16:31→17:09)
[2018-10-11] MEDS: MORPHINE SULFATE 4 MG/ML, 1ML IVPush PRN ×2 (16:35→17:15)
--- NOTE | 2018-10-11 16:35 | NUR ---
PT MEDICATED NOTED PER ORDER FOR 03/05 CP, ABD PAIN. VSS. BP REMAINS IMPROVED 137/96 HR 88. CALL LIGHT IN REACH. DENIES NEED TO USE RESTROOM. FALL PRECAUTIONS IN PLACE. REMAINS SR ON MONITOR WITH PVC'S.
--- NOTE | 2018-10-11 17:16 | NUR ---
PT REPORTS CP/ABD PAIN IMPROVED TO 6/10, "BETTER, MORE COMFORTABLE, BUT I WILL TAKE ANOTHER DOSE OF MEDICINE IF I CAN." MEDICATED NOTED PER ERP ORDER. VSS. SR ON MONITOR WITH PVC'S NOTED, UNCHANGED. CALL LIGHT IN REACH. DENIES NEED TO USE RESTROOM. PT UP FOR RECHECK
--- NOTE | 2018-10-11 17:42 | NUR ---
PT REPORTS CP IMPROVED TO 4-5/10, REMAINS SR ON MONITOR WITH PVC'S NOTED. VSS. CALL LIGHT IN REACH. CONTINUE AWAITING RECHECK FROM DR. GU.
--- NOTE | 2018-10-11 17:55 | NUR ---
BEDSIDE REPORT AND CARE TO SIM SANDOVAL AT THIS TIME.
--- NOTE | 2018-10-11 18:00 | NUR ---
REPORT FROM LORI MOSLEY. PT SITTING UP IN [facility] NOTED. PT REPORTS SIGNIFICANT IMPROVMENT IN CP, 4/10 WITH MEDICATIONS AND ABD PAIN REMAINS 7/10. PT DENIES NEED FOR FURTHER PAIN MEDICATIONS AT THIS TIME. PT UPDATED TO POC (RECHECK/DISPO) AND DEMONSTRATES UNDERSTANDING.
[2018-10-11] MEDS ORDERED: OMNIPAQUE 350 MG/ML, 100ML BOTTLE ONE (18:43)
--- NOTE | 2018-10-11 19:00 | NUR ---
PT RETURNED FROM CT. NAD NOTED. BP/SPO2/ECG MONITORING IN PLACE. NSR ON MONITOR W/ OCCASIONAL PVC. PT DENIES NEED FOR PAIN MEDICATIONS. NO N/V/D SINCE ARRIVAL TO ED.
--- NOTE | 2018-10-11 19:20 | NUR ---
PT AWARE OF POC TO ADMIT AND DEMONSTRATES UNDERSTANDING.
[2018-10-11] MEDS ORDERED: SODIUM CHLORIDE FLUSH 10ML SYR IVF PRN (19:30)
--- NOTE | 2018-10-11 19:55 | NUR ---
HOSPITALTIST AT BEDSIDE.
--- NOTE | 2018-10-11 20:30 | NUR ---
REPORT TO LORI SINGH. PT PREPARED FOR TRANSPORT.
[2018-10-11] MEDS ORDERED: POLYETHYLENE GLYCOL 17 GM PACKET PO PRN (21:30)
[2018-10-11] MEDS: INSULIN LISPRO 100 UNITS/ML, PEN SQ-INSULIN SCH (21:30)
[2018-10-11] MEDS ORDERED: BISACODYL 10 MG SUPP PR PRN (21:30)
[2018-10-11] MEDS ORDERED: hydrALAzine 20 MG/ML, 1ML IVPush PRN (21:30)
[2018-10-11] MEDS ORDERED: ONDANSETRON ODT 4 MG PO PRN (21:30)
[2018-10-11] MEDS ORDERED: PROMETHAZINE 25 MG/ML, 1ML IM PRN (21:30)
[2018-10-11] MEDS ORDERED: ONDANSETRON 2MG/ML, 2ML IVPush PRN (21:30)
[2018-10-11] MEDS ORDERED: ACETAMINOPHEN 325 MG TABLET PO PRN (21:30)
[2018-10-11] MEDS ORDERED: NITROGLYCERIN 0.4 MG BOTTLE (25 TABS) SL PRN (21:30)
[2018-10-11] MEDS ORDERED: DOCUSATE 100 MG CAPSULE PO PRN (21:30)
[2018-10-11] MEDS ORDERED: morphine SULFATE 10 MG/ML, 1ML IVPush PRN (21:30)
[2018-10-11 21:49] LABS: HEMOGLOBIN A1C 7.7 % (4.2-6.3)
[2018-10-11 21:53] LABS: FREE T4 (FREE THYROXINE) 1.24 ng/dL (0.76-1.46); THYROID STIMULATING HORMONE 1.4 mIU/L (0.358-3.740)
[2018-10-11] MEDS ORDERED: POTASSIUM CHLORIDE 20 MEQ TAB.ER.PRT PO ONE (22:00)
[2018-10-11] MEDS: SODIUM CHLORIDE 0.9% 1,000 ML IV SCH (22:12)
[2018-10-11] MEDS: TRAZODONE 50MG TABLET PO SCH (22:17)
[2018-10-11] MEDS: ATORVASTATIN 40 MG TABLET PO SCH (22:17)
[2018-10-11] MEDS: GABAPENTIN 300 MG CAPSULE PO SCH (22:17)
[2018-10-11] MEDS: QUETIAPINE 100MG TABLET PO SCH (22:18)
[2018-10-11] MEDS: HEPARIN 5,000 UNITS/ML, 1ML SQ SCH (22:18)
[2018-10-11 22:30] VITALS: BP 108/75
[2018-10-11] MEDS: OXYcodone IR 5MG TABLET PO PRN (23:02)
[2018-10-11 23:40] LABS: TROPONIN I 0.028 ng/mL (0.000-0.045)
[2018-10-12 01:54] VITALS: BP 128/82
[2018-10-12 05:04] LABS: ALANINE AMINOTRANSFERASE 37 U/L (12-78); ALBUMIN 3.1 g/dL (3.4-5.0); ANION GAP 7 mmol/L (5-15); CALCIUM 7.9 mg/dL (8.5-10.1); CHLORIDE 109 mmol/L (98-107); CHOLESTEROL, TOTAL 123 mg/dL (140-239); CREATININE 1.08 mg/dL (0.7-1.3); TRIGLYCERIDES 189 mg/dL (50-200); VLDL CHOLESTEROL 38 mg/dL (0-25)
[2018-10-12 05:08] LABS: ALKALINE PHOSPHATASE 122 U/L (45-117); BILIRUBIN,TOTAL 0.3 mg/dL (0.2-1.0); CHOL/HDL RATIO 3.7; HDL CHOL % 27 % (26-37); HDL CHOLESTEROL (DIRECT) 33 mg/dL (40-60); LDL CHOLESTEROL,CALCULATED 52 mg/dL (54-169); LDL/HDL RATIO 1.6 (0.5-3.0); TOTAL PROTEIN 6.8 g/dL (6.4-8.2); TROPONIN I < 0.015 ng/mL (0.000-0.045)
[2018-10-12 05:09] LABS: BASOPHILS # (AUTO) 0.02 x10^3/uL (0-0.1); BASOPHILS % (AUTO) 0 % (0-1); EOSINOPHILS % (AUTO) 2 % (1-7); LYMPHOCYTES # (AUTO) 1.19 x10^3/uL (1-3.4); LYMPHOCYTES % (AUTO) 22 % (22-44); MD NO; MEAN CORPUSCULAR HEMOGLOBIN 29.4 pg (27.5-34.5); MEAN CORPUSCULAR HGB CONC 32.8 g/dL (33.2-36.2); MEAN CORPUSCULAR VOLUME 89.6 fL (81-97); MONOCYTES % (AUTO) 11 % (2-9); NEUTROPHILS # (AUTO) 3.45 x10^3/uL (1.8-6.8); NEUTROPHILS % (AUTO) 64 % (42-75); PLATELET COUNT 164 x10^3/uL (130-400); RED CELL DISTRIBUTION WIDTH 15.6 % (9.4-14.8)
[2018-10-12] MEDS: HEPARIN 5,000 UNITS/ML, 1ML SQ SCH ×3 (05:36→20:48)
[2018-10-12] MEDS: ASPIRIN 325 MG TABLET EC PO SCH (05:36)
[2018-10-12] MEDS: INSULIN LISPRO 100 UNITS/ML, PEN SQ-INSULIN SCH ×4 (07:00→20:48)
[2018-10-12 07:08] VITALS: BP 126/81
[2018-10-12] MEDS: SODIUM CHLORIDE 0.9% 1,000 ML IV SCH (08:38)
[2018-10-12] MEDS: TEMPLATE NON-FORMULARY MED. (Escitalopram Oxalate** 20 MG) HOMEMEDPO SCH (08:39)
[2018-10-12] MEDS: LISINOPRIL 10 MG TABLET PO SCH (08:40)
[2018-10-12] MEDS: METOPROLOL SUCCINATE 100 MG TAB.ER.24H PO SCH (08:40)
[2018-10-12] MEDS: OMEPRAZOLE 20 MG CAPSULE.DR PO SCH (08:40)
[2018-10-12] MEDS: GABAPENTIN 300 MG CAPSULE PO SCH ×3 (08:40→20:43)
[2018-10-12] MEDS ORDERED: ASPIRIN 81 MG TABLET EC PO SCH (09:00)
[2018-10-12] MEDS ORDERED: REGADENOSON 0.4 MG/5 ML SYRINGE ONE (09:10)
[2018-10-12] MEDS ORDERED: MAGNESIUM SULFATE PMX 2GM/50ML 50 ML IV ONE (10:30)
[2018-10-12] MEDS: OXYcodone IR 5MG TABLET PO PRN ×2 (11:19→16:58)
[2018-10-12 13:17] VITALS: BP_SYST 100; BP_SYST 106; BP_DIAS 60; BP_DIAS 69
[2018-10-12 13:18] LABS: CLOSTRIDIUM DIFFICILE ANTIGEN NEGATIVE; CLOSTRIDIUM DIFFICILE TOXIN NEGATIVE (Negative)
[2018-10-12 20:00] VITALS: BP 99/70
[2018-10-12] MEDS: QUETIAPINE 100MG TABLET PO SCH (20:43)
[2018-10-12] MEDS: TRAZODONE 50MG TABLET PO SCH (20:43)
[2018-10-12] MEDS: ATORVASTATIN 40 MG TABLET PO SCH (20:43)
[2018-10-13] MEDS ORDERED: SODIUM CHLORIDE NASAL SPRAY 45ML BOTTLE NAS PRN
[2018-10-13] MEDS: OXYcodone IR 5MG TABLET PO PRN (00:24)
[2018-10-13 01:18] VITALS: BP 102/72
[2018-10-13] MEDS: HEPARIN 5,000 UNITS/ML, 1ML SQ SCH ×2 (06:22→13:30)
[2018-10-13] MEDS: ASPIRIN 325 MG TABLET EC PO SCH (06:23)
[2018-10-13] MEDS: INSULIN LISPRO 100 UNITS/ML, PEN SQ-INSULIN SCH ×2 (07:00→11:00)
[2018-10-13 07:48] VITALS: BP 102/68
[2018-10-13] MEDS: TEMPLATE NON-FORMULARY MED. (Escitalopram Oxalate** 20 MG) HOMEMEDPO SCH (08:04)
[2018-10-13] MEDS: GABAPENTIN 300 MG CAPSULE PO SCH (08:04)
[2018-10-13] MEDS: LISINOPRIL 10 MG TABLET PO SCH (08:05)
[2018-10-13] MEDS: METOPROLOL SUCCINATE 100 MG TAB.ER.24H PO SCH (08:05)
[2018-10-13] MEDS: OMEPRAZOLE 20 MG CAPSULE.DR PO SCH (08:05)
[2018-10-13 13:06] VITALS: BP 114/76
== END 2018-10-13 15:00 | disposition home health service (06) | DRG 303 ==
LOC: ED 16:47 → EDIP 19:06 → 5SO 21:10 → DCLOUNGE 10-13 14:50
PROVIDERS: ADMIT Internal Medicine; ATTEND Internal Medicine
DX: I25.10 Atherosclerotic heart disease of native coronary artery without angina pectoris (principal); E66.9 Obesity, unspecified; E11.9 Type 2 diabetes mellitus without complications; E78.5 Hyperlipidemia, unspecified; E87.6 Hypokalemia; F12.90 Cannabis use, unspecified, uncomplicated; R19.7 Diarrhea, unspecified; F31.9 Bipolar disorder, unspecified; I25.5 Ischemic cardiomyopathy; I25.82 Chronic total occlusion of coronary artery; I11.0 Hypertensive heart disease with heart failure; F41.9 Anxiety disorder, unspecified; M54.9 Dorsalgia, unspecified; G89.29 Other chronic pain; I50.9 Heart failure, unspecified; K21.9 Gastro-esophageal reflux disease without esophagitis; K57.90 Diverticulosis of intestine, part unspecified, without perforation or abscess without bleeding; T36.95XA Adverse effect of unspecified systemic antibiotic, initial encounter; I25.2 Old myocardial infarction; Z90.49 Acquired absence of other specified parts of digestive tract; Z95.5 Presence of coronary angioplasty implant and graft; Z95.810 Presence of automatic (implantable) cardiac defibrillator; Z95.1 Presence of aortocoronary bypass graft; Z68.32 Body mass index [BMI] 32.0-32.9, adult; Y92.9 Unspecified place or not applicable
CPT/HCPCS: 36415; 71045; 74177; 78452; 80053; 80061; 82962; 83036; 83690; 83735; 83880; 84439; 84443; 84484; 85025; 85610; 85730; 87324; 93005; 93017; 96374; 96375; 96376; C8929; G0378; J1644; J2405; J2785; Q9967; A9502; C9898; J1815; J3475; J7030

== ENCOUNTER 2018-10-23 07:02 | Emergency (ER) | payer MEDICARE, MEDICAID ==
[~2018-10-23] VITALS: Ht 165.1 cm; Wt 82.2 kg
--- NOTE | 2018-10-23 07:20 | NUR ---
PT BIB [facility] FOR RIGHT UPPER QUADRANT ABD PAIN THAT RADIATES TO BACK SINCE YESTERDAY. PT IS ANXIOUS AND HYPERVENTILATING. PT PLACED ON BP, CARDIAC, AND CONT. PULSE OXIMETER. EKG DONE AND PRESENTED TO MD. ASSESSMENT COMPLETED. PA AT BEDSIDE AND ORDERS RECEIVED. PT TOLD TO "SLOW HIS BREATHING DOWN." PT THEN BEGAN BREATHING SLOWER.
--- NOTE | 2018-10-23 07:44 | NUR ---
324 mg aspirin given in route by [facility].
[2018-10-23 08:04] LABS: BASOPHILS # (AUTO) 0.04 x10^3/uL (0-0.1); BASOPHILS % (AUTO) 0 % (0-1); EOSINOPHILS # (AUTO) 0.11 x10^3/uL (0-0.4); EOSINOPHILS % (AUTO) 1 % (1-7); LYMPHOCYTES # (AUTO) 1.35 x10^3/uL (1-3.4); LYMPHOCYTES % (AUTO) 11 % (22-44); MD NO; MEAN CORPUSCULAR HEMOGLOBIN 29.3 pg (27.5-34.5); MEAN CORPUSCULAR HGB CONC 33.1 g/dL (33.2-36.2); MEAN CORPUSCULAR VOLUME 88.7 fL (81-97); MEAN PLATELET VOLUME 8.3 fL (7.4-10.4); MONOCYTES # (AUTO) 0.83 x10^3/uL (0.2-0.8); MONOCYTES % (AUTO) 7 % (2-9); NEUTROPHILS # (AUTO) 9.47 x10^3/uL (1.8-6.8); NEUTROPHILS % (AUTO) 80 % (42-75); PLATELET COUNT 273 x10^3/uL (130-400); RED CELL DISTRIBUTION WIDTH 15.3 % (9.4-14.8)
[2018-10-23 08:08] LABS: ALBUMIN 3.9 g/dL (3.4-5.0); ANION GAP 10 mmol/L (5-15); CALCIUM 9.2 mg/dL (8.5-10.1); CHLORIDE 107 mmol/L (98-107); CREATININE 1.15 mg/dL (0.7-1.3)
[2018-10-23 08:12] LABS: TROPONIN I < 0.015 ng/mL (0.000-0.045)
--- NOTE | 2018-10-23 08:21 | NUR ---
pt pulling off bp cuff and monitor. pt walking down hallway and wanting pain medications. pt given toradol im per md verbal order.
[2018-10-23] MEDS ORDERED: KETOROLAC 30 MG/1 ML ONE (08:22)
--- NOTE | 2018-10-23 08:27 | NUR ---
TORADOL GIVEN 30MG IM LEFT GLUTEUS FALGUNI. PT THEN AMBULATED TO BR.
--- NOTE | 2018-10-23 08:52 | NUR ---
pt wants more pain medications. md aware. pt up for discharge.
[2018-10-23] MEDS ORDERED: KETOROLAC 30 MG/1 ML IVPush ONE (09:00)
[2018-10-23 09:16] VITALS: BP 125/88
--- NOTE | 2018-10-23 09:16 | NUR ---
PT DISCHARGED TO HOME. PT UP AMBULATORY AND STABLE ON FEET. PT GIVEN TAXI VOUCHER.
== END 2018-10-23 09:18 | disposition home or self-care (01) ==
LOC: ED 07:18
DX: R07.89 Other chest pain (principal); E78.5 Hyperlipidemia, unspecified; I25.2 Old myocardial infarction; I25.10 Atherosclerotic heart disease of native coronary artery without angina pectoris; K21.9 Gastro-esophageal reflux disease without esophagitis; E78.00 Pure hypercholesterolemia, unspecified; E11.9 Type 2 diabetes mellitus without complications; I11.0 Hypertensive heart disease with heart failure; I50.9 Heart failure, unspecified; Z72.9 Problem related to lifestyle, unspecified; Z95.0 Presence of cardiac pacemaker; Z90.49 Acquired absence of other specified parts of digestive tract; Z95.1 Presence of aortocoronary bypass graft
CPT/HCPCS: 36415; 71045; 80048; 82040; 83880; 84484; 85025; 93005; 96374; 99284; J1885

== ENCOUNTER 2018-11-12 13:52 | Emergency (ER) | payer MEDICARE, MEDICAID ==
[~2018-11-12] VITALS: Ht 165.1 cm; Wt 85.0 kg
--- NOTE | 2018-11-12 14:06 | NUR ---
EKG COMPLETED ON ARRIVAL. PT PLACED ON HEART MONITOR, BP CUFF, PULSE OX. PT RATES PAIN AT 7/10, DECREASED FROM 8/10 EARLIER. CALL LIGHT WITHIN REACH, WARM BLANKET PROVIDED. DR REYES IN TO SEE PT.
[2018-11-12] MEDS ORDERED: MAALOX/HYOSCYAMINE/LIDOCAINE 45 ML BTL ONE (14:09)
[2018-11-12] MEDS ORDERED: MAALOX/HYOSCYAMINE/LIDOCAINE 45 ML BTL PO ONE (14:30)
--- NOTE | 2018-11-12 14:54 | NUR ---
PT UPDATED ON CXR RESULTS, LABS PENDING. PT STATES CP UNRELIEVED BY GI COCKTAIL, CONTINUES TO RATE IT AT 7/10. CALL LIGHT WITHIN REACH.
[2018-11-12 14:58] LABS: BASOPHILS # (AUTO) 0.02 x10^3/uL (0-0.1); BASOPHILS % (AUTO) 0 % (0-1); EOSINOPHILS # (AUTO) 0.15 x10^3/uL (0-0.4); EOSINOPHILS % (AUTO) 1 % (1-7); LYMPHOCYTES # (AUTO) 1.65 x10^3/uL (1-3.4); LYMPHOCYTES % (AUTO) 14 % (22-44); MD NO; MEAN CORPUSCULAR HEMOGLOBIN 29.6 pg (27.5-34.5); MEAN CORPUSCULAR HGB CONC 33.7 g/dL (33.2-36.2); MEAN CORPUSCULAR VOLUME 88.1 fL (81-97); MEAN PLATELET VOLUME 8.2 fL (7.4-10.4); MONOCYTES # (AUTO) 0.77 x10^3/uL (0.2-0.8); MONOCYTES % (AUTO) 6 % (2-9); NEUTROPHILS # (AUTO) 9.58 x10^3/uL (1.8-6.8); NEUTROPHILS % (AUTO) 79 % (42-75); PLATELET COUNT 220 x10^3/uL (130-400); RED BLOOD COUNT 4.91 x10^6/uL (4.38-5.82)
[2018-11-12 15:08] LABS: ALANINE AMINOTRANSFERASE 19 U/L (12-78); ALBUMIN 3.6 g/dL (3.4-5.0); ANION GAP 13 mmol/L (5-15); CALCIUM 8.8 mg/dL (8.5-10.1); CHLORIDE 109 mmol/L (98-107); CREATININE 1.23 mg/dL (0.7-1.3)
[2018-11-12 15:12] LABS: ALKALINE PHOSPHATASE 108 U/L (45-117); BILIRUBIN,TOTAL 0.6 mg/dL (0.2-1.0); TOTAL PROTEIN 7.5 g/dL (6.4-8.2); TROPONIN I < 0.015 ng/mL (0.000-0.045)
--- NOTE | 2018-11-12 15:57 | NUR ---
ALL RESULTS BACK, PT FOR RECHECK.
[2018-11-12] MEDS ORDERED: KETOROLAC 30 MG/1 ML ONE (16:26)
[2018-11-12] MEDS ORDERED: KETOROLAC 30 MG/1 ML IVPush ONE (16:30)
[2018-11-12 16:44] VITALS: BP 122/64
--- NOTE | 2018-11-12 16:45 | NUR ---
PT ASKING TO LEAVE WITHOUT WAITING FOR TORADOL REASSESSMENT. PT STATES RIDE IS HERE AND CAN'T WAIT. PT DISCHARGED HOME, AMBULATED OUT TO DISCHARGE DESK WITHOUT PROBLEM.
== END 2018-11-12 16:46 | disposition home or self-care (01) ==
LOC: ED 14:32
DX: R07.9 Chest pain, unspecified (principal); E11.9 Type 2 diabetes mellitus without complications; E78.5 Hyperlipidemia, unspecified; I25.2 Old myocardial infarction; I11.0 Hypertensive heart disease with heart failure; I50.9 Heart failure, unspecified; I25.5 Ischemic cardiomyopathy; E78.00 Pure hypercholesterolemia, unspecified; I25.10 Atherosclerotic heart disease of native coronary artery without angina pectoris; Z90.49 Acquired absence of other specified parts of digestive tract; Z95.0 Presence of cardiac pacemaker; Z72.9 Problem related to lifestyle, unspecified
CPT/HCPCS: 36415; 71045; 80053; 83690; 84484; 85025; 93005; 96374; 99284; J1885

== ENCOUNTER 2019-09-05 10:34 | Observation (INO) | payer MEDICARE, MEDICAID ==
[~2019-09-05] VITALS: Ht 165.1 cm; Wt 78.2 kg
[2019-09-05] VITALS (10 sets, daily range): BP systolic 141–188; BP diastolic 82–103
[~2019-09-05 10:34] MED LIST changes: +FLUO20CA23 PO; -FLUO20CA8 PO; +HYDR-2995 PO; -HYDR10TA4 PO; -NITR0.4T SL; +NITR0.4T41 SL; +OMEP40CA42 PO; -OMEP40CA6 PO; +SIMV20TA19 PO; -SIMV20TA3 PO; +SIMV40TA20 PO; -SIMV40TA3 PO
[2019-09-05] MEDS ORDERED: NITROGLYCERIN SINGLE TAB 0.4 MG SL PRN (11:30)
[2019-09-05] MEDS ORDERED: ASPIRIN 81 MG TABLET CHEW PO ONE (11:30)
[2019-09-05] MEDS ORDERED: SODIUM CHLORIDE FLUSH 10ML SYR IVF ONE (11:30)
[2019-09-05 11:33] LABS: BASOPHILS # (AUTO) 0.01 x10^3/uL (0-0.1); BASOPHILS % (AUTO) 0 % (0-1); EOSINOPHILS # (AUTO) 0.03 x10^3/uL (0-0.4); EOSINOPHILS % (AUTO) 0 % (1-7); LYMPHOCYTES # (AUTO) 1.37 x10^3/uL (1-3.4); LYMPHOCYTES % (AUTO) 11 % (22-44); MD NO; MEAN CORPUSCULAR HEMOGLOBIN 29.6 pg (27.5-34.5); MEAN CORPUSCULAR HGB CONC 33.3 g/dL (33.2-36.2); MEAN CORPUSCULAR VOLUME 88.8 fL (81-97); MEAN PLATELET VOLUME 8.2 fL (7.4-10.4); MONOCYTES # (AUTO) 0.49 x10^3/uL (0.2-0.8); MONOCYTES % (AUTO) 4 % (2-9); NEUTROPHILS # (AUTO) 10.85 x10^3/uL (1.8-6.8); NEUTROPHILS % (AUTO) 85 % (42-75); PLATELET COUNT 246 x10^3/uL (130-400); RED BLOOD COUNT 4.84 x10^6/uL (4.38-5.82); RED CELL DISTRIBUTION WIDTH 16.7 % (9.4-14.8)
[2019-09-05 11:43] LABS: INTERNATIONAL NORMALIZED RATIO 0.94 (0.93-1.1)
[2019-09-05 11:45] LABS: ALBUMIN 3.7 g/dL (3.4-5.0); ANION GAP 9 mmol/L (5-15); CALCIUM 9.7 mg/dL (8.5-10.1); CHLORIDE 105 mmol/L (98-107); CREATININE 1.08 mg/dL (0.7-1.3)
[2019-09-05 11:49] LABS: TROPONIN I < 0.015 ng/mL (0.000-0.045)
[2019-09-05] MEDS ORDERED: NITROGLYCERIN SINGLE TAB 0.4 MG SL ONE (11:54)
[2019-09-05] MEDS ORDERED: ONDANSETRON 2MG/ML, 2ML ONE (11:55)
[2019-09-05] MEDS ORDERED: ASPIRIN 81 MG TABLET CHEW ONE (11:55)
[2019-09-05] MEDS ORDERED: ONDANSETRON 2MG/ML, 2ML IVPush ONE (12:00)
[2019-09-05] MEDS ORDERED: MORPHINE SULFATE 4 MG/ML, 1ML IVPush PRN (12:00)
[2019-09-05] MEDS ORDERED: MORPHINE SULFATE 4 MG/ML, 1ML ONE (12:02)
--- NOTE | 2019-09-05 12:07 | NUR ---
PT GIVEN NITRO WITH NO RELIEF FROM CP. THEN GIVEN MORPHINE FOR NAINA NOTED ON MAR
--- NOTE | 2019-09-05 12:41 | NUR ---
CP 5/10 AFTER RECEIVING MORPHINE. CONTINUE TO MONITOR
[2019-09-05] MEDS ORDERED: SODIUM CHLORIDE FLUSH 10ML SYR IVF PRN (13:00)
--- NOTE | 2019-09-05 13:21 | NUR ---
BREAK RN: PT UPRIGHT ON GURNEY AWAKE & COMFORTABLE, DENIES CP AT THIS TIME, RESPONDS APPROP TO STAFF, NAD, NO NEEDS AT THIS TIME, [facility] AT BS, CALL LIGHT WITHIN REACH.
[2019-09-05] MEDS ORDERED: SODIUM CHLORIDE 0.9% 1,000 ML IV SCH (13:43)
--- NOTE | 2019-09-05 13:45 | NUR ---
Pt to be admitted to [facility], room 408-2. Report called to Velma.
[2019-09-05] MEDS ORDERED: ONDANSETRON 2MG/ML, 2ML IVPush PRN (14:00)
[2019-09-05] MEDS: NITROGLYCERIN 0.4 MG BOTTLE (25 TABS) SL PRN ×5 (14:26→21:45)
[2019-09-05] MEDS: METOPROLOL TARTRATE 25 MG TAB PO SCH ×2 (14:29→18:14)
[2019-09-05] MEDS ORDERED: MORPHINE SULFATE 4 MG/ML, 1ML IVPush ONE (14:30)
[2019-09-05] MEDS: ENOXAPARIN 40 MG/0.4 ML SQ SCH (14:30)
[2019-09-05] MEDS ORDERED: NITROGLYCERIN 0.4 MG/SPRAY SL PRN (14:30)
[2019-09-05] MEDS ORDERED: OMNIPAQUE 350 MG/ML, 100ML BOTTLE ONE (15:20)
[2019-09-05] MEDS: INSULIN LISPRO 100 UNITS/ML, PEN SQ-INSULIN SCH ×2 (16:00→22:12)
[2019-09-05 16:03] LABS: MICROSCOPIC AUTO
[2019-09-05 16:12] LABS: CULTURE INDICATED? NO
[2019-09-05 16:14] LABS: AMPHETAMINE SCREEN, URINE Negative (Negative); BARBITURATE SCREEN, URINE Negative (Negative); BENZODIAZEPINE SCREEN, URINE Positive (Negative); CANNABINOID SCREEN, URINE Positive (Negative); COCAINE SCREEN, URINE Negative (Negative); METHADONE SCREEN, URINE Negative (Negative); OPIATE SCREEN, URINE Positive (Negative)
[2019-09-05 16:58] LABS: ALANINE AMINOTRANSFERASE 30 U/L (12-78); ALBUMIN 3.5 g/dL (3.4-5.0)
[2019-09-05 17:01] LABS: ALKALINE PHOSPHATASE 80 U/L (45-117); BILIRUBIN,TOTAL 0.3 mg/dL (0.2-1.0); TOTAL PROTEIN 7.4 g/dL (6.4-8.2); TROPONIN I < 0.015 ng/mL (0.000-0.045)
[2019-09-05 17:07] LABS: BILIRUBIN, DIRECT < 0.1 mg/dL (0.1-0.2); BILIRUBIN,INDIRECT 0.2 mg/dL (0.0-2.0)
[2019-09-05 19:58] LABS: TROPONIN I < 0.015 ng/mL (0.000-0.045)
[2019-09-05] MEDS ORDERED: ATORVASTATIN 40 MG TABLET PO SCH (21:00)
[2019-09-05] MEDS: LISINOPRIL 10 MG TABLET PO SCH (22:11)
[2019-09-05] MEDS: ACETAMINOPHEN 325 MG TABLET PO PRN (22:11)
[2019-09-06] MEDS ORDERED: KETOROLAC 30 MG/1 ML IVPush ONE
[2019-09-06 00:39] VITALS: BP 151/83
[2019-09-06 04:14] VITALS: BP 136/78
[2019-09-06] MEDS: NITROGLYCERIN 0.4 MG BOTTLE (25 TABS) SL PRN ×3 (04:15→04:28)
[2019-09-06 04:20] VITALS: BP 148/79
[2019-09-06 04:27] VITALS: BP 130/77
[2019-09-06] MEDS: ACETAMINOPHEN 325 MG TABLET PO PRN ×2 (04:28→13:49)
[2019-09-06] MEDS ORDERED: ASPIRIN 325 MG TABLET EC PO SCH (06:00)
[2019-09-06 06:20] LABS: BASOPHILS # (AUTO) 0.02 x10^3/uL (0-0.1); BASOPHILS % (AUTO) 0 % (0-1); EOSINOPHILS # (AUTO) 0.12 x10^3/uL (0-0.4); EOSINOPHILS % (AUTO) 1 % (1-7); LYMPHOCYTES # (AUTO) 1.66 x10^3/uL (1-3.4); LYMPHOCYTES % (AUTO) 15 % (22-44); MD NO; MEAN CORPUSCULAR HEMOGLOBIN 29.6 pg (27.5-34.5); MEAN CORPUSCULAR HGB CONC 33.3 g/dL (33.2-36.2); MEAN CORPUSCULAR VOLUME 88.7 fL (81-97); MEAN PLATELET VOLUME 7.9 fL (7.4-10.4); MONOCYTES # (AUTO) 0.84 x10^3/uL (0.2-0.8); MONOCYTES % (AUTO) 8 % (2-9); NEUTROPHILS # (AUTO) 8.19 x10^3/uL (1.8-6.8); NEUTROPHILS % (AUTO) 76 % (42-75); PLATELET COUNT 222 x10^3/uL (130-400); RED BLOOD COUNT 4.43 x10^6/uL (4.38-5.82); RED CELL DISTRIBUTION WIDTH 16.9 % (9.4-14.8)
[2019-09-06 06:25] LABS: ALBUMIN 3.3 g/dL (3.4-5.0); ANION GAP 9 mmol/L (5-15); CALCIUM 8.4 mg/dL (8.5-10.1); CHLORIDE 106 mmol/L (98-107)
[2019-09-06 06:36] LABS: ALANINE AMINOTRANSFERASE 32 U/L (12-78); ALKALINE PHOSPHATASE 75 U/L (45-117); BILIRUBIN,TOTAL 0.4 mg/dL (0.2-1.0); CREATININE 1.25 mg/dL (0.7-1.3); TOTAL PROTEIN 7.1 g/dL (6.4-8.2)
[2019-09-06 06:54] VITALS: BP 156/84
[2019-09-06] MEDS: INSULIN LISPRO 100 UNITS/ML, PEN SQ-INSULIN SCH ×2 (07:00→11:00)
[2019-09-06] MEDS ORDERED: PANTOPROZOLE 40MG TABLET PO SCH (07:30)
[2019-09-06] MEDS ORDERED: morphine SULFATE 10 MG/ML, 1ML IVPush PRN (10:30)
[2019-09-06] MEDS: LISINOPRIL 10 MG TABLET PO SCH (10:48)
[2019-09-06 12:52] VITALS: BP 152/84
[2019-09-06] MEDS: METOPROLOL TARTRATE 25 MG TAB PO SCH (13:56)
[2019-09-06] MEDS: ENOXAPARIN 40 MG/0.4 ML SQ SCH (15:43)
[2019-09-06] MEDS ORDERED: AMLO-150 PO (15:58)
[2019-09-06] MEDS ORDERED: NITR0.4T28 SL (15:58)
[2019-09-06] MEDS ORDERED: LIDO700A20 TD (16:05)
== END 2019-09-06 17:01 | disposition home or self-care (01) ==
LOC: ED 12:59 → EDIP 13:00 → INTOOBSV 13:00 → 5SO 14:03 → DCLOUNGE 09-06 16:48
PROVIDERS: ADMIT Internal Medicine; ATTEND Internal Medicine
DX: I16.0 Hypertensive urgency (principal); R07.9 Chest pain, unspecified; R10.9 Unspecified abdominal pain; R19.7 Diarrhea, unspecified; D72.829 Elevated white blood cell count, unspecified; I11.0 Hypertensive heart disease with heart failure; I50.20 Unspecified systolic (congestive) heart failure; I25.110 Atherosclerotic heart disease of native coronary artery with unstable angina pectoris; K21.9 Gastro-esophageal reflux disease without esophagitis; E78.5 Hyperlipidemia, unspecified; E11.9 Type 2 diabetes mellitus without complications; G89.29 Other chronic pain; R30.0 Dysuria; I25.2 Old myocardial infarction; R07.2 Precordial pain; F12.90 Cannabis use, unspecified, uncomplicated; I25.5 Ischemic cardiomyopathy; Z95.1 Presence of aortocoronary bypass graft; Z95.5 Presence of coronary angioplasty implant and graft; Z95.810 Presence of automatic (implantable) cardiac defibrillator; Z91.19 Patient's noncompliance with other medical treatment and regimen
CPT/HCPCS: 36415; 71045; 74177; 80048; 80053; 80076; 80307; 81001; 82040; 82962; 83036; 83690; 83880; 84443; 84484; 85025; 85610; 85730; 89055; 93005; 93017; 96361; 96372; 96374; 96375; 96376; 99285; C8929; G0378; J1650; J1815; J1885; J2270; J2405; J7030; Q9967

== ENCOUNTER 2019-10-08 03:49 | Observation (INO) | payer MEDICARE, MEDICAID ==
[~2019-10-08] VITALS: Ht 165.1 cm; Wt 77.2 kg
[~2019-10-08 03:49] MED LIST changes: +AMLO-150 PO; +LIDO700A20 TD
--- NOTE | 2019-10-08 04:11 | NUR ---
THIS IS A 58 YO MALE [facility] SUB[facility] CHEST PAIN STARTING AT 0200. PATIENT STATES "IT WOKE ME UP AND WOULDN'T GO AWAY". PATIENT DESCRIBES PAIN CRUSHING PRESSURE, RADIATES ACROSS CHEST. STATES MILD SOB AND NAUSEA. PATIENT HAS HX OF [place] IN 2002 WITH STENTS PLACED, HX OF TRIPLE BYPASS SURGERY, "PACEMAKER/DEFIBRILLATOR PLACED IN 2013." PATIENT NON COMPLIANT WITH PRESCRIBED MEDICATIONS AT HOME, "SUPPOSED TO BE TAKING PLAVIX BUT I DON'T HAVE A PRIMARY CARE DOC ANYMORE SO I DON'T HAVE ANY PRESCRIPTIONS FOR ALL THE MEDS I'M SUPPOSED TO TAKE". A&OX4, PIV PLACED BY [facility], 0.4MG NITRO AND 324MG ASPIRIN GIVEN BY [facility] MACHINIST HELPER. ALL MONITORING IN PLACE, VSS, ERP TO BEDSIDE AT THIS TIME
[2019-10-08] MEDS ORDERED: MORPHINE SULFATE 4 MG/ML, 1ML ONE (04:18)
[2019-10-08] MEDS ORDERED: ONDANSETRON 2MG/ML, 2ML ONE (04:18)
--- NOTE | 2019-10-08 04:24 | NUR ---
PATIENT MEDICATED PER EMAR, TOLERATED WELL. ASPIRIN HELD DUE TO PATIENT GIVEN ASPIRIN BY EMS
[2019-10-08] MEDS ORDERED: MORPHINE SULFATE 4 MG/ML, 1ML IVPush PRN (04:30)
[2019-10-08] MEDS ORDERED: ONDANSETRON 2MG/ML, 2ML IVPush ONE (04:30)
[2019-10-08] MEDS ORDERED: ASPIRIN 81 MG TABLET CHEW PO ONE (04:30)
[2019-10-08 04:37] LABS: BASOPHILS # (AUTO) 0.02 x10^3/uL (0-0.1); BASOPHILS % (AUTO) 0 % (0-1); EOSINOPHILS # (AUTO) 0.18 x10^3/uL (0-0.4); EOSINOPHILS % (AUTO) 2 % (1-7); LYMPHOCYTES # (AUTO) 1.48 x10^3/uL (1-3.4); LYMPHOCYTES % (AUTO) 14 % (22-44); MD NO; MEAN CORPUSCULAR HEMOGLOBIN 29.7 pg (27.5-34.5); MEAN CORPUSCULAR HGB CONC 33.2 g/dL (33.2-36.2); MEAN CORPUSCULAR VOLUME 89.4 fL (81-97); MEAN PLATELET VOLUME 7.8 fL (7.4-10.4); MONOCYTES # (AUTO) 0.57 x10^3/uL (0.2-0.8); MONOCYTES % (AUTO) 6 % (2-9); NEUTROPHILS # (AUTO) 8.14 x10^3/uL (1.8-6.8); NEUTROPHILS % (AUTO) 78 % (42-75); PLATELET COUNT 210 x10^3/uL (130-400); RED BLOOD COUNT 4.73 x10^6/uL (4.38-5.82); RED CELL DISTRIBUTION WIDTH 17.2 % (9.4-14.8)
[2019-10-08 04:51] LABS: ALBUMIN 3.6 g/dL (3.4-5.0); ANION GAP 8 mmol/L (5-15); CHLORIDE 107 mmol/L (98-107); CREATININE 0.94 mg/dL (0.7-1.3)
[2019-10-08 04:55] LABS: TROPONIN I < 0.015 ng/mL (0.000-0.045)
[2019-10-08] MEDS ORDERED: NITROGLYCERIN OINT 2%, 1GM TP ONE (04:59)
--- NOTE | 2019-10-08 05:04 | NUR ---
REPORT GIVEN TO LORI HAYDEN. PLAN OF CARE DISCUSSED
--- NOTE | 2019-10-08 05:12 | NUR ---
Report received from LORI Gregg. This RN to assume care. Patient resting in [facility].
[2019-10-08] MEDS ORDERED: NITROGLYCERIN 0.4 MG BOTTLE (25 TABS) SL PRN (05:30)
[2019-10-08] MEDS ORDERED: BISACODYL 10 MG SUPP PR PRN (05:30)
[2019-10-08] MEDS ORDERED: ONDANSETRON ODT 4 MG PO PRN (05:30)
[2019-10-08] MEDS ORDERED: ENALAPRILAT 1.25 MG/ML, 2ML IVPush PRN (05:30)
[2019-10-08] MEDS ORDERED: ACETAMINOPHEN 325 MG TABLET PO PRN (05:30)
[2019-10-08] MEDS ORDERED: POLYETHYLENE GLYCOL 17 GM PACKET PO PRN (05:30)
[2019-10-08] MEDS ORDERED: LABETALOL 5MG/ML, 20ML IVPush PRN (05:30)
[2019-10-08 05:34] VITALS: BP 135/89
[2019-10-08] MEDS: ENOXAPARIN 40 MG/0.4 ML SQ SCH (05:54)
[2019-10-08] MEDS: KETOROLAC 30 MG/1 ML IV PRN ×2 (05:54→13:55)
[2019-10-08] MEDS: INSULIN LISPRO 100 UNITS/ML, PEN SQ-INSULIN SCH ×4 (07:00→19:47)
[2019-10-08] MEDS ORDERED: FUROSEMIDE 20 MG/2 ML IV ONE (08:00)
[2019-10-08] MEDS ORDERED: POTASSIUM CHLORIDE 20 MEQ TAB.ER.PRT PO ONE (08:00)
[2019-10-08] MEDS ORDERED: LISINOPRIL 10 MG TABLET PO SCH ×2 (09:00→21:00)
[2019-10-08] MEDS: SENNA/DOCUSATE TABLET PO SCH (09:00)
[2019-10-08 09:25] VITALS: BP 152/104
[2019-10-08] MEDS: AMLODIPINE 5 MG TABLET PO SCH (09:38)
[2019-10-08] MEDS: ASPIRIN 325 MG TABLET PO SCH (09:38)
[2019-10-08 09:46] LABS: TROPONIN I < 0.015 ng/mL (0.000-0.045)
[2019-10-08] MEDS ORDERED: REGADENOSON 0.4 MG/5 ML SYRINGE ONE (12:03)
[2019-10-08 13:51] VITALS: BP_SYST 129; BP_SYST 184; BP_DIAS 104; BP_DIAS 86
[2019-10-08 16:43] LABS: TROPONIN I < 0.015 ng/mL (0.000-0.045)
[2019-10-08] MEDS: LIDODERM 5% PATCH TD SCH (17:05)
[2019-10-08] MEDS: CARVEDILOL 3.125 MG TABLET PO SCH (17:05)
[2019-10-08] MEDS: ATORVASTATIN 40 MG TABLET PO SCH (19:51)
[2019-10-08 19:52] VITALS: BP 138/91
[2019-10-08] MEDS: LISINOPRIL 10 MG TABLET PO SCH (19:52)
[2019-10-09] MEDS: KETOROLAC 30 MG/1 ML IV PRN ×2 (02:40→09:27)
[2019-10-09 02:42] VITALS: BP 142/88
[2019-10-09] MEDS: ENOXAPARIN 40 MG/0.4 ML SQ SCH (04:50)
[2019-10-09] MEDS: CARVEDILOL 3.125 MG TABLET PO SCH (04:50)
[2019-10-09] MEDS: ASPIRIN 325 MG TABLET PO SCH (04:51)
[2019-10-09] MEDS: LIDODERM REMOVE PATCH NOTE XX SCH (05:30)
[2019-10-09] MEDS ORDERED: CALCIUM CARBONATE 500 MG TAB.CHEW PO PRN (05:30)
[2019-10-09] MEDS ORDERED: MAALOX/HYOSCYAMINE/LIDOCAINE 45 ML BTL PO ONE (05:30)
[2019-10-09 05:36] LABS: BASOPHILS # (AUTO) 0.03 x10^3/uL (0-0.1); BASOPHILS % (AUTO) 0 % (0-1); EOSINOPHILS # (AUTO) 0.14 x10^3/uL (0-0.4); EOSINOPHILS % (AUTO) 2 % (1-7); LYMPHOCYTES # (AUTO) 1.91 x10^3/uL (1-3.4); LYMPHOCYTES % (AUTO) 22 % (22-44); MD NO; MEAN CORPUSCULAR HEMOGLOBIN 30.1 pg (27.5-34.5); MEAN CORPUSCULAR HGB CONC 33.3 g/dL (33.2-36.2); MEAN CORPUSCULAR VOLUME 90.2 fL (81-97); MEAN PLATELET VOLUME 8.3 fL (7.4-10.4); MONOCYTES # (AUTO) 0.86 x10^3/uL (0.2-0.8); MONOCYTES % (AUTO) 10 % (2-9); NEUTROPHILS # (AUTO) 5.86 x10^3/uL (1.8-6.8); NEUTROPHILS % (AUTO) 67 % (42-75); PLATELET COUNT 224 x10^3/uL (130-400); RED BLOOD COUNT 4.65 x10^6/uL (4.38-5.82); RED CELL DISTRIBUTION WIDTH 17.1 % (9.4-14.8)
[2019-10-09 05:47] LABS: ANION GAP 7 mmol/L (5-15); CALCIUM 8.6 mg/dL (8.5-10.1); CHLORIDE 106 mmol/L (98-107)
[2019-10-09] MEDS: INSULIN LISPRO 100 UNITS/ML, PEN SQ-INSULIN SCH ×4 (07:00→21:00)
[2019-10-09 07:22] VITALS: BP 147/94
[2019-10-09] MEDS: SENNA/DOCUSATE TABLET PO SCH (07:55)
[2019-10-09 09:23] VITALS: BP_SYST 146; BP_SYST 155; BP_DIAS 93; BP_DIAS 99
[2019-10-09] MEDS: AMLODIPINE 5 MG TABLET PO SCH (09:27)
[2019-10-09] MEDS: LISINOPRIL 10 MG TABLET PO SCH ×2 (09:27→20:24)
[2019-10-09] MEDS ORDERED: ACETAMINOPHEN 325 MG TABLET PO PRN (11:00)
[2019-10-09] MEDS ORDERED: CARV6.2512 PO (14:12)
[2019-10-09] MEDS ORDERED: NITR0.4T28 SL (14:12)
[2019-10-09] MEDS ORDERED: ATOR40TA78 PO (14:12)
[2019-10-09] MEDS ORDERED: ASPI81TA45 PO (14:12)
[2019-10-09 15:19] VITALS: BP_SYST 114; BP_SYST 148; BP_DIAS 74; BP_DIAS 79
[2019-10-09] MEDS: CARVEDILOL 6.25 MG TABLET PO SCH (17:39)
[2019-10-09 20:22] VITALS: BP 125/83
[2019-10-09] MEDS: ATORVASTATIN 40 MG TABLET PO SCH (20:24)
[2019-10-09] MEDS: LIDODERM 5% PATCH TD SCH (20:25)
[2019-10-10 02:00] VITALS: BP 128/82
[2019-10-10] MEDS: LIDODERM REMOVE PATCH NOTE XX SCH (05:30)
[2019-10-10] MEDS: ENOXAPARIN 40 MG/0.4 ML SQ SCH (05:31)
[2019-10-10] MEDS: CARVEDILOL 6.25 MG TABLET PO SCH (05:32)
[2019-10-10] MEDS: ASPIRIN 325 MG TABLET PO SCH (05:32)
[2019-10-10] MEDS: KETOROLAC 30 MG/1 ML IV PRN ×2 (05:37→11:35)
[2019-10-10] MEDS: INSULIN LISPRO 100 UNITS/ML, PEN SQ-INSULIN SCH ×3 (07:00→16:00)
[2019-10-10 07:19] VITALS: BP 130/87
[2019-10-10] MEDS: SENNA/DOCUSATE TABLET PO SCH (08:38)
[2019-10-10] MEDS: LISINOPRIL 10 MG TABLET PO SCH (08:38)
[2019-10-10] MEDS: LIDODERM 5% PATCH TD SCH (11:37)
[2019-10-10 13:15] VITALS: BP 134/89
== END 2019-10-10 17:28 ==
LOC: ED 05:07 → 5SO 05:27 → INTOOBSV 05:36 → ED 05:36 → 5SO 10-09 10:24
PROVIDERS: ADMIT Internal Medicine; ATTEND Internal Medicine
DX: R07.89 Other chest pain (principal); R45.851 Suicidal ideations; F33.2 Major depressive disorder, recurrent severe without psychotic features; E11.9 Type 2 diabetes mellitus without complications; I25.110 Atherosclerotic heart disease of native coronary artery with unstable angina pectoris; I25.5 Ischemic cardiomyopathy; I34.0 Nonrheumatic mitral (valve) insufficiency; I11.0 Hypertensive heart disease with heart failure; I50.9 Heart failure, unspecified; E78.5 Hyperlipidemia, unspecified; K21.9 Gastro-esophageal reflux disease without esophagitis; G89.29 Other chronic pain; G47.00 Insomnia, unspecified; I25.2 Old myocardial infarction; F10.10 Alcohol abuse, uncomplicated; M47.9 Spondylosis, unspecified; F19.10 Other psychoactive substance abuse, uncomplicated; F12.10 Cannabis abuse, uncomplicated; G47.30 Sleep apnea, unspecified; F43.21 Adjustment disorder with depressed mood; Z95.1 Presence of aortocoronary bypass graft; Z79.899 Other long term (current) drug therapy; Z95.810 Presence of automatic (implantable) cardiac defibrillator; Z95.5 Presence of coronary angioplasty implant and graft; Z79.82 Long term (current) use of aspirin; Z91.19 Patient's noncompliance with other medical treatment and regimen; Z90.49 Acquired absence of other specified parts of digestive tract; Z91.14 Patient's other noncompliance with medication regimen; Z91.5 Personal history of self-harm
CPT/HCPCS: 36415; 71045; 78452; 80048; 82040; 82962; 84484; 85025; 93005; 93017; 96372; 96374; 96375; 96376; 99285; A9502; C9898; G0378; J1650; J1815; J1885; J1940; J2270; J2405; J2785; Q0162

== ENCOUNTER 2019-10-10 16:33 | Inpatient (IN) | payer MEDICARE, MEDICAID ==
[~2019-10-10] VITALS: Ht 165.1 cm; Wt 75.6 kg
[2019-10-10 18:13] VITALS: BP 148/98
[2019-10-10 19:00] VITALS: BP 160/83
[2019-10-10] MEDS ORDERED: DOCUSATE 100 MG CAPSULE PO PRN (20:00)
[2019-10-10] MEDS ORDERED: BISACODYL 10 MG SUPP PR PRN (20:00)
[2019-10-10] MEDS ORDERED: POLYETHYLENE GLYCOL 17 GM PACKET PO PRN (20:00)
[2019-10-10] MEDS ORDERED: ONDANSETRON 4 MG TABLET PO PRN (20:00)
[2019-10-10] MEDS ORDERED: ACETAMINOPHEN 325 MG TABLET PO PRN (20:00)
[2019-10-10] MEDS ORDERED: QUETIAPINE 100MG TABLET ONE (21:29)
[2019-10-10] MEDS ORDERED: GABAPENTIN 300 MG CAPSULE ONE (21:29)
[2019-10-10] MEDS ORDERED: NITROGLYCERIN 0.4 MG BOTTLE (25 TABS) SL PRN (21:30)
[2019-10-10] MEDS: ATORVASTATIN 40 MG TABLET PO SCH (21:30)
[2019-10-10] MEDS: QUETIAPINE 100MG TABLET PO SCH (21:31)
[2019-10-10] MEDS: GABAPENTIN 300 MG CAPSULE PO SCH (21:31)
[2019-10-11] MEDS: ASPIRIN 81 MG TABLET EC PO SCH (06:11)
[2019-10-11 07:35] VITALS: BP 109/75
[2019-10-11] MEDS ORDERED: LIDODERM 5% PATCH TD ONE (08:00)
[2019-10-11] MEDS ORDERED: CYCLOBENZAPRINE 10 MG TABLET PO PRN (08:00)
[2019-10-11 08:23] LABS: CHOL/HDL RATIO 6.7; FREE T4 (FREE THYROXINE) 1.18 ng/dL (0.76-1.46); LDL/HDL RATIO 4.8 (0.5-3.0)
[2019-10-11] MEDS: GABAPENTIN 300 MG CAPSULE PO SCH ×3 (08:50→20:48)
[2019-10-11] MEDS: LISINOPRIL 10 MG TABLET PO SCH (08:50)
[2019-10-11] MEDS: CARVEDILOL 6.25 MG TABLET PO SCH ×2 (08:50→17:49)
[2019-10-11] MEDS: SENNA/DOCUSATE TABLET PO SCH ×2 (09:00→21:00)
[2019-10-11] MEDS: DULOXETINE 30 MG CAPSULE.DR PO SCH (15:02)
[2019-10-11] MEDS: OMEPRAZOLE 20 MG CAPSULE.DR PO SCH (17:49)
[2019-10-11 17:50] VITALS: BP 155/80
[2019-10-11 19:48] VITALS: BP 113/79
[2019-10-11] MEDS: ATORVASTATIN 40 MG TABLET PO SCH (20:49)
[2019-10-11] MEDS: QUETIAPINE 100MG TABLET PO SCH (20:49)
[2019-10-12] MEDS: CARVEDILOL 6.25 MG TABLET PO SCH ×2 (06:35→15:46)
[2019-10-12] MEDS: ASPIRIN 81 MG TABLET EC PO SCH (06:35)
[2019-10-12] MEDS: OMEPRAZOLE 20 MG CAPSULE.DR PO SCH ×2 (06:38→15:46)
[2019-10-12 06:39] VITALS: BP 116/78
[2019-10-12 08:00] VITALS: BP 126/77
[2019-10-12] MEDS: DULOXETINE 30 MG CAPSULE.DR PO SCH (08:14)
[2019-10-12] MEDS: LISINOPRIL 10 MG TABLET PO SCH (08:14)
[2019-10-12] MEDS: GABAPENTIN 300 MG CAPSULE PO SCH ×3 (08:14→20:44)
[2019-10-12] MEDS: SENNA/DOCUSATE TABLET PO SCH ×2 (08:17→20:44)
[2019-10-12 19:47] VITALS: BP 145/87
[2019-10-12] MEDS: ATORVASTATIN 40 MG TABLET PO SCH (20:43)
[2019-10-12] MEDS: QUETIAPINE 100MG TABLET PO SCH (20:44)
[2019-10-13] MEDS: ASPIRIN 81 MG TABLET EC PO SCH (06:09)
[2019-10-13] MEDS: OMEPRAZOLE 20 MG CAPSULE.DR PO SCH (06:09)
[2019-10-13 07:15] VITALS: BP 101/67
[2019-10-13] MEDS: GABAPENTIN 300 MG CAPSULE PO SCH (08:36)
[2019-10-13] MEDS: LISINOPRIL 10 MG TABLET PO SCH (08:36)
[2019-10-13] MEDS: CARVEDILOL 6.25 MG TABLET PO SCH (08:37)
[2019-10-13] MEDS: DULOXETINE 30 MG CAPSULE.DR PO SCH (08:37)
[2019-10-13] MEDS: SENNA/DOCUSATE TABLET PO SCH (08:38)
[2019-10-13] MEDS ORDERED: LISI-167 PO (09:42)
[2019-10-13] MEDS ORDERED: ASPI81TA45 PO (09:42)
[2019-10-13] MEDS ORDERED: CARV6.2512 PO (09:42)
[2019-10-13] MEDS ORDERED: DULO30CA2 PO (09:42)
[2019-10-13] MEDS ORDERED: OMEP-110 PO (09:42)
[2019-10-13] MEDS ORDERED: CYCL-259 PO (09:42)
[2019-10-13] MEDS ORDERED: NITR0.4T28 SL (09:42)
[2019-10-13] MEDS ORDERED: GABA300C10 PO (09:42)
[2019-10-13] MEDS ORDERED: ATOR40TA78 PO (09:42)
[2019-10-13] MEDS ORDERED: QUET100T PO (09:42)
== END 2019-10-13 13:04 | disposition home or self-care (01) | DRG 885 ==
LOC: 3E 17:24
PROVIDERS: ADMIT Psychiatry & Neurology Psychosomatic Medicine; ATTEND Psychiatry & Neurology Psychosomatic Medicine
DX: F33.2 Major depressive disorder, recurrent severe without psychotic features (principal); R45.851 Suicidal ideations; I42.8 Other cardiomyopathies; I25.10 Atherosclerotic heart disease of native coronary artery without angina pectoris; E11.9 Type 2 diabetes mellitus without complications; G47.00 Insomnia, unspecified; K57.90 Diverticulosis of intestine, part unspecified, without perforation or abscess without bleeding; K40.90 Unilateral inguinal hernia, without obstruction or gangrene, not specified as recurrent; E78.5 Hyperlipidemia, unspecified; F12.10 Cannabis abuse, uncomplicated; F15.11 Other stimulant abuse, in remission; G89.29 Other chronic pain; I10 Essential (primary) hypertension; I34.0 Nonrheumatic mitral (valve) insufficiency; K21.9 Gastro-esophageal reflux disease without esophagitis; K59.00 Constipation, unspecified; K76.0 Fatty (change of) liver, not elsewhere classified; Z79.82 Long term (current) use of aspirin; Z79.899 Other long term (current) drug therapy; Z80.9 Family history of malignant neoplasm, unspecified; Z82.49 Family history of ischemic heart disease and other diseases of the circulatory system; Z90.49 Acquired absence of other specified parts of digestive tract; Z95.1 Presence of aortocoronary bypass graft; Z95.5 Presence of coronary angioplasty implant and graft; Z95.810 Presence of automatic (implantable) cardiac defibrillator
CPT/HCPCS: 36415; 80061; 84439; 84443; 93005; 92523-GN

== ENCOUNTER 2019-10-16 10:58 | Emergency (ER) | payer MEDICARE, MEDICAID ==
[~2019-10-16] VITALS: Ht 165.1 cm; Wt 77.0 kg
[~2019-10-16 10:58] MED LIST changes: +CYCL-259 PO; +DULO30CA2 PO
--- NOTE | 2019-10-16 11:21 | NUR ---
STEPHANIE. REPORT RECEIVED FROM EMS. PT C/O CP/SOB/ABD PAIN WITH NAUSEA SINCE 2 AM. HX OF NE. PT WAS HERE BEFORE WITH THE SAME REASONS. 325 ASA AND 0.4 NITRO GIVEN BY EMS NEEDLEWORKER. PT'S AOX4. RESPS EVEN AND UNLABORED. ALL MONITORS IN PLACE. CALL LIGHT WITHIN REACH. SINUS [place] ON AGENT CONTRACT CLERK RATE 100'S AT THIS TIME. EDMD AT BEDSIDE TO EVALUATE.
[2019-10-16] MEDS ORDERED: KETOROLAC 30 MG/1 ML IVPush ONE (11:30)
[2019-10-16] MEDS ORDERED: KETOROLAC 30 MG/1 ML ONE (11:30)
--- NOTE | 2019-10-16 11:32 | NUR ---
PT MEDICATED PER EMAR. PT TOLERATED WELL. LAB AT BEDSIDE.
--- NOTE | 2019-10-16 11:40 | NUR ---
EKG DONE AT BEDSIDE BY EMS AT THIS TIME.
--- NOTE | 2019-10-16 11:43 | NUR ---
PT IS SUPPOSED TO TAKE SOME HOME MEDICATIONS, BUT PT STATES"I JUST TAKE LISINOPRIL AT THIS TIME." EDMD NOTIFIED.
[2019-10-16 11:46] LABS: BASOPHILS # (AUTO) 0.03 x10^3/uL (0-0.1); BASOPHILS % (AUTO) 0 % (0-1); EOSINOPHILS # (AUTO) 0.02 x10^3/uL (0-0.4); EOSINOPHILS % (AUTO) 0 % (1-7); LYMPHOCYTES # (AUTO) 1.57 x10^3/uL (1-3.4); LYMPHOCYTES % (AUTO) 15 % (22-44); MD NO; MEAN CORPUSCULAR HEMOGLOBIN 29.9 pg (27.5-34.5); MEAN CORPUSCULAR HGB CONC 33.1 g/dL (33.2-36.2); MEAN CORPUSCULAR VOLUME 90.2 fL (81-97); MEAN PLATELET VOLUME 8.2 fL (7.4-10.4); MONOCYTES # (AUTO) 0.61 x10^3/uL (0.2-0.8); MONOCYTES % (AUTO) 6 % (2-9); NEUTROPHILS # (AUTO) 7.99 x10^3/uL (1.8-6.8); NEUTROPHILS % (AUTO) 78 % (42-75); PLATELET COUNT 248 x10^3/uL (130-400); RED BLOOD COUNT 4.91 x10^6/uL (4.38-5.82); RED CELL DISTRIBUTION WIDTH 16.9 % (9.4-14.8)
[2019-10-16 11:55] LABS: ALANINE AMINOTRANSFERASE 21 U/L (12-78); ALBUMIN 3.7 g/dL (3.4-5.0); ANION GAP 9 mmol/L (5-15); CALCIUM 9.3 mg/dL (8.5-10.1); CHLORIDE 109 mmol/L (98-107)
[2019-10-16 12:00] LABS: ALKALINE PHOSPHATASE 83 U/L (45-117); BILIRUBIN,TOTAL 0.6 mg/dL (0.2-1.0); TOTAL PROTEIN 8.1 g/dL (6.4-8.2); TROPONIN I < 0.015 ng/mL (0.000-0.045)
[2019-10-16] MEDS ORDERED: CYCLOBENZAPRINE 10 MG TABLET ONE (12:06)
[2019-10-16 12:09] VITALS: BP 176/119
--- NOTE | 2019-10-16 12:09 | NUR ---
PT MEDICATED PER EMAR. PT TOLERATED WELL.
[2019-10-16] MEDS ORDERED: CYCLOBENZAPRINE 10 MG TABLET PO ONE (12:30)
--- NOTE | 2019-10-16 13:10 | NUR ---
PT WAS FOUND ON THE FLOOR BY JOSIANE WELLS. PT DOESN'T REMEMBER WHAT WAS GOING ON. PT STATES "I TRIED TO GO TO BR AND I WAS ON THE FLOOR." PT'S AOX4. RESPS EVEN AND UNLABORED. TOXICOLOGY TEACHER/PRODUCT CRAFTSMAN/EDMD NOTIFIED. SIDE RAILS X 2 UP, CALL LIGHT IN BED. PT BACK TO BED WITH EMT.
--- NOTE | 2019-10-16 13:40 | NUR ---
BREAK RN: PT LEFT AGAINST MEDICAL ADVICE, REFUSED TO SIGN PAPERWORK
== END 2019-10-16 13:41 | disposition left against medical advice (07) ==
LOC: ED 11:21
DX: R07.2 Precordial pain (principal); R10.84 Generalized abdominal pain; R06.02 Shortness of breath; R00.0 Tachycardia, unspecified; I10 Essential (primary) hypertension; E11.9 Type 2 diabetes mellitus without complications; K21.9 Gastro-esophageal reflux disease without esophagitis; I25.10 Atherosclerotic heart disease of native coronary artery without angina pectoris; I25.2 Old myocardial infarction; Z95.1 Presence of aortocoronary bypass graft
CPT/HCPCS: 36415; 71045; 80053; 83605; 83690; 84484; 85025; 85379; 93005; 96374; 99285; J1885

== ENCOUNTER 2020-04-06 08:21 | Observation (INO) | payer MEDICARE, MEDICAID ==
[~2020-04-06] VITALS: Ht 165.1 cm; Wt 80.9 kg
[~2020-04-06 08:21] MED LIST changes: -ENAL5TAB PO; +ENAL5TAB10 PO; -PANT40TA5 PO; +PANT40TA6 PO
--- NOTE | 2020-04-06 08:50 | NUR ---
KAUR CAIN AT BEDSIDE. PT CONNECTED TO CONTINUOUS CARDIAC AND SPO2 MONITORS. BP CUFF APPLIED AND SET TO [id number].
--- NOTE | 2020-04-06 08:52 | NUR ---
BEDSIDE REPORT FROM WILLA RN WITH ASSESSMENT PATIENT CONTINUES TO REPORT RIGHT CHEST/EPIGASTRIC PAIN UNAFFECTED BY EMS NITRO PROVIDER TO BEDSIDE-POC REVIEWED WILL CONTINUE TO MONITOR-VSS ON EXPORT SALES ASSISTANT
[2020-04-06] MEDS ORDERED: OMEP-110 PO (08:53)
[2020-04-06 09:17] LABS: MEAN CORPUSCULAR HEMOGLOBIN 31.5 pg (27.5-34.5); MEAN CORPUSCULAR HGB CONC 33.3 g/dL (33.2-36.2); MEAN CORPUSCULAR VOLUME 94.7 fL (81-97); MEAN PLATELET VOLUME 7.9 fL (7.4-10.4); PLATELET COUNT 244 x10^3/uL (130-400); RED BLOOD COUNT 5.04 x10^6/uL (4.38-5.82); RED CELL DISTRIBUTION WIDTH 13.6 % (9.4-14.8)
[2020-04-06 09:23] LABS: ALANINE AMINOTRANSFERASE 42 U/L (12-78); ALBUMIN 3.7 g/dL (3.4-5.0); ANION GAP 9 mmol/L (5-15); CALCIUM 9.2 mg/dL (8.5-10.1); CHLORIDE 107 mmol/L (98-107)
[2020-04-06 09:28] LABS: ALKALINE PHOSPHATASE 97 U/L (45-117); BILIRUBIN,TOTAL 0.5 mg/dL (0.2-1.0); CREATININE 1.19 mg/dL (0.7-1.3); TOTAL PROTEIN 8.2 g/dL (6.4-8.2); TROPONIN I < 0.015 ng/mL (0.000-0.045)
[2020-04-06 09:42] LABS: BASOPHILS # (AUTO) 0.05 x10^3/uL (0-0.1); BASOPHILS % (AUTO) 0 % (0-1); EOSINOPHILS # (AUTO) 0.09 x10^3/uL (0-0.4); EOSINOPHILS % (AUTO) 1 % (1-7); LYMPHOCYTES # (AUTO) 1.87 x10^3/uL (1-3.4); LYMPHOCYTES % (AUTO) 16 % (22-44); MD SCAN; MONOCYTES # (AUTO) 0.65 x10^3/uL (0.2-0.8); MONOCYTES % (AUTO) 6 % (2-9); NEUTROPHILS # (AUTO) 9.21 x10^3/uL (1.8-6.8); NEUTROPHILS % (AUTO) 78 % (42-75)
[2020-04-06] MEDS ORDERED: MAALOX/HYOSCYAMINE/LIDOCAINE 45 ML BTL PO ONE ×2 (10:00→23:30)
[2020-04-06] MEDS ORDERED: MAALOX/HYOSCYAMINE/LIDOCAINE 45 ML BTL ONE (10:01)
[2020-04-06] MEDS ORDERED: PROMETHAZINE 25 MG/ML, 1ML ONE (10:12)
--- NOTE | 2020-04-06 10:18 | NUR ---
PT AMBULATED TO BR. HE STATED THAT HE HAD A SMALL BM. PHENERGAN GIVEN FOR NAUSEA. PT RESTING WITH NO COMPLAINTS.
[2020-04-06] MEDS ORDERED: PROMETHAZINE 25 MG/ML, 1ML IM ONE (10:30)
[2020-04-06] MEDS ORDERED: MORPHINE SULFATE 4 MG/ML, 1ML IVPush PRN (11:00)
--- NOTE | 2020-04-06 12:02 | NUR ---
PT RESTING IN BED, CALL LIGHT IN REACH.
--- NOTE | 2020-04-06 12:27 | NUR ---
TO CT SCAN
[2020-04-06 12:31] LABS: TROPONIN I < 0.015 ng/mL (0.000-0.045)
[2020-04-06] MEDS ORDERED: OMNIPAQUE 350 MG/ML, 100ML BOTTLE ONE (12:33)
[2020-04-06] MEDS ORDERED: MORPHINE SULFATE 4 MG/ML, 1ML ONE (12:52)
--- NOTE | 2020-04-06 13:30 | NUR ---
With reassessment epigastric pain improved to 6/10 Vss on quality assurance monitor Moved to hospital bed Provided with small cup of water Updated on estimated poc (admit for cadiac workup)
[2020-04-06] MEDS ORDERED: hydrALAzine 20 MG/ML, 1ML IVPush PRN (14:30)
[2020-04-06] MEDS ORDERED: ONDANSETRON 2MG/ML, 2ML IVPush PRN (14:30)
[2020-04-06] MEDS ORDERED: PROMETHAZINE 25 MG/ML, 1ML IM PRN (14:30)
[2020-04-06] MEDS ORDERED: ACETAMINOPHEN 325 MG TABLET PO PRN (14:30)
[2020-04-06] MEDS ORDERED: DOCUSATE 100 MG CAPSULE PO PRN (14:30)
[2020-04-06] MEDS ORDERED: BISACODYL 10 MG SUPP PR PRN (14:30)
[2020-04-06] MEDS ORDERED: morphine SULFATE 10 MG/ML, 1ML IVPush PRN (14:30)
[2020-04-06] MEDS ORDERED: NITROGLYCERIN 0.4 MG BOTTLE (25 TABS) SL PRN ×2 (14:30→20:30)
[2020-04-06] MEDS ORDERED: ONDANSETRON ODT 4 MG PO PRN (14:30)
[2020-04-06] MEDS ORDERED: POLYETHYLENE GLYCOL 17 GM PACKET PO PRN (14:30)
[2020-04-06 14:38] VITALS: BP 137/92
[2020-04-06 15:15] LABS: FREE T4 (FREE THYROXINE) 1.03 ng/dL (0.76-1.46)
[2020-04-06] MEDS: SODIUM CHLORIDE 0.9% 1,000 ML IV SCH (16:09)
[2020-04-06] MEDS: HEPARIN 5,000 UNITS/ML, 1ML SQ SCH ×2 (16:10→22:02)
[2020-04-06] MEDS: OXYcodone IR 5MG TABLET PO PRN ×2 (17:04→21:39)
[2020-04-06 17:24] LABS: TROPONIN I < 0.015 ng/mL (0.000-0.045)
[2020-04-06 20:21] LABS: TROPONIN I < 0.015 ng/mL (0.000-0.045)
[2020-04-06] MEDS ORDERED: CYCLOBENZAPRINE 10 MG TABLET PO PRN (20:30)
[2020-04-06] MEDS ORDERED: ATORVASTATIN 40 MG TABLET PO SCH (21:00)
[2020-04-06] MEDS ORDERED: QUETIAPINE 100MG TABLET PO SCH (21:00)
[2020-04-06 21:01] VITALS: BP 169/96
[2020-04-06] MEDS: GABAPENTIN 300 MG CAPSULE PO SCH (22:02)
[2020-04-06] MEDS: CARVEDILOL 6.25 MG TABLET PO SCH (22:03)
[2020-04-07 01:13] VITALS: BP 105/72
[2020-04-07] MEDS: SODIUM CHLORIDE 0.9% 1,000 ML IV SCH (02:27)
[2020-04-07 05:22] LABS: BASOPHILS # (AUTO) 0.03 x10^3/uL (0-0.1); BASOPHILS % (AUTO) 0 % (0-1); EOSINOPHILS # (AUTO) 0.11 x10^3/uL (0-0.4); EOSINOPHILS % (AUTO) 1 % (1-7); LYMPHOCYTES # (AUTO) 2.85 x10^3/uL (1-3.4); LYMPHOCYTES % (AUTO) 27 % (22-44); MD NO; MEAN CORPUSCULAR HEMOGLOBIN 31.5 pg (27.5-34.5); MEAN CORPUSCULAR HGB CONC 32.8 g/dL (33.2-36.2); MEAN CORPUSCULAR VOLUME 96.1 fL (81-97); MEAN PLATELET VOLUME 8.2 fL (7.4-10.4); MONOCYTES % (AUTO) 8 % (2-9); NEUTROPHILS # (AUTO) 6.77 x10^3/uL (1.8-6.8); NEUTROPHILS % (AUTO) 64 % (42-75); PLATELET COUNT 210 x10^3/uL (130-400); RED BLOOD COUNT 4.25 x10^6/uL (4.38-5.82); RED CELL DISTRIBUTION WIDTH 13.7 % (9.4-14.8)
[2020-04-07] MEDS: HEPARIN 5,000 UNITS/ML, 1ML SQ SCH (05:27)
[2020-04-07] MEDS: CARVEDILOL 6.25 MG TABLET PO SCH (05:28)
[2020-04-07 05:32] VITALS: BP 100/65
[2020-04-07] MEDS ORDERED: ASPIRIN 325 MG TABLET EC PO SCH (06:00)
[2020-04-07 06:06] LABS: CHLORIDE 109 mmol/L (98-107)
[2020-04-07 06:31] LABS: ALANINE AMINOTRANSFERASE 34 U/L (12-78); ALBUMIN 3.1 g/dL (3.4-5.0); ALKALINE PHOSPHATASE 71 U/L (45-117); ANION GAP 7 mmol/L (5-15); BILIRUBIN,TOTAL 0.4 mg/dL (0.2-1.0); CALCIUM 8.5 mg/dL (8.5-10.1); CHOL/HDL RATIO 7.2; CHOLESTEROL, TOTAL 215 mg/dL (140-239); CREATININE 1.19 mg/dL (0.7-1.3); HDL CHOL % 14 % (26-37); HDL CHOLESTEROL (DIRECT) 30 mg/dL (40-60); LDL CHOLESTEROL,CALCULATED 141 mg/dL (54-169); LDL/HDL RATIO 4.7 (0.5-3.0); TOTAL PROTEIN 6.7 g/dL (6.4-8.2); TRIGLYCERIDES 220 mg/dL (50-200); VLDL CHOLESTEROL 44 mg/dL (0-25)
[2020-04-07 06:45] VITALS: BP 101/60
[2020-04-07] MEDS ORDERED: DULOXETINE 30 MG CAPSULE.DR PO SCH (09:00)
[2020-04-07] MEDS ORDERED: ASPIRIN 81 MG TABLET EC PO SCH (09:00)
[2020-04-07] MEDS ORDERED: OMEPRAZOLE 20 MG CAPSULE.DR PO SCH (09:00)
[2020-04-07] MEDS ORDERED: LISINOPRIL 10 MG TABLET PO SCH (09:00)
[2020-04-07 10:10] VITALS: BP 144/84
[2020-04-07] MEDS: GABAPENTIN 300 MG CAPSULE PO SCH (10:12)
[2020-04-07 12:34] VITALS: BP 117/74
== END 2020-04-07 13:55 | disposition home or self-care (01) ==
LOC: ED 10:04 → EDIP 13:02 → INTOOBSV 13:02 → 5SO 14:33
PROVIDERS: ADMIT Hospitalist; ATTEND Internal Medicine
DX: R07.89 Other chest pain (principal); E11.9 Type 2 diabetes mellitus without complications; E78.00 Pure hypercholesterolemia, unspecified; E78.5 Hyperlipidemia, unspecified; F12.10 Cannabis abuse, uncomplicated; G47.00 Insomnia, unspecified; I11.0 Hypertensive heart disease with heart failure; I50.9 Heart failure, unspecified; I25.2 Old myocardial infarction; I25.10 Atherosclerotic heart disease of native coronary artery without angina pectoris; G89.29 Other chronic pain; I25.5 Ischemic cardiomyopathy; I25.82 Chronic total occlusion of coronary artery; K21.9 Gastro-esophageal reflux disease without esophagitis; K76.0 Fatty (change of) liver, not elsewhere classified; Z95.1 Presence of aortocoronary bypass graft; Z95.5 Presence of coronary angioplasty implant and graft; Z95.810 Presence of automatic (implantable) cardiac defibrillator
CPT/HCPCS: 36415; 71045; 74177; 76700; 80053; 80061; 83036; 83735; 83880; 84439; 84443; 84484; 85025; 93005; 96361; 96372; 96374; 99285; G0378; J1644; J2270; J2550; J7030; Q0162; Q9967; 93701

== ENCOUNTER 2020-05-26 16:49 | Emergency (ER) | payer MEDICARE, MEDICAID ==
[~2020-05-26] VITALS: Ht 165.1 cm; Wt 77.5 kg
[2020-05-26] MEDS ORDERED: SODIUM CHLORIDE FLUSH 10ML SYR IVF ONE (17:30)
[2020-05-26] MEDS ORDERED: MAALOX/HYOSCYAMINE/LIDOCAINE 45 ML BTL PO ONE (17:30)
[2020-05-26] MEDS ORDERED: MAALOX/HYOSCYAMINE/LIDOCAINE 45 ML BTL ONE ×2 (17:40→18:41)
[2020-05-26 17:57] LABS: BASOPHILS % (AUTO) 1 % (0-1); EOSINOPHILS % (AUTO) 1 % (1-7); LYMPHOCYTES % (AUTO) 18 % (22-44); MEAN CORPUSCULAR HEMOGLOBIN 31.5 pg (27.5-34.5); MEAN CORPUSCULAR HGB CONC 33.5 g/dL (33.2-36.2); MEAN PLATELET VOLUME 8.2 fL (7.4-10.4); MONOCYTES % (AUTO) 7 % (2-9); NEUTROPHILS % (AUTO) 75 % (42-75); PLATELET COUNT 225 x10^3/uL (130-400); RED CELL DISTRIBUTION WIDTH 13.7 % (9.4-14.8)
[2020-05-26 18:03] LABS: MD NO
[2020-05-26 18:09] LABS: ALBUMIN 3.7 g/dL (3.4-5.0); ANION GAP 9 mmol/L (5-15); CALCIUM 9.2 mg/dL (8.5-10.1); CHLORIDE 106 mmol/L (98-107)
[2020-05-26 18:16] LABS: ALANINE AMINOTRANSFERASE 68 U/L (12-78); ALKALINE PHOSPHATASE 101 U/L (45-117); BILIRUBIN,TOTAL 0.7 mg/dL (0.2-1.0)
[2020-05-26] MEDS ORDERED: MORPHINE SULFATE 4 MG/ML, 1ML ONE (18:52)
[2020-05-26] MEDS ORDERED: ONDANSETRON 2MG/ML, 2ML ONE (18:52)
[2020-05-26] MEDS ORDERED: ONDANSETRON 2MG/ML, 2ML IVPush ONE (19:00)
[2020-05-26] MEDS ORDERED: MORPHINE SULFATE 4 MG/ML, 1ML IVPush PRN (19:00)
[2020-05-26] MEDS ORDERED: OMNIPAQUE 350 MG/ML, 100ML BOTTLE ONE (19:05)
--- NOTE | 2020-05-26 19:17 | NUR ---
Report from Elijah SANDOVAL As report being communicated-patient transported to CT
[2020-05-26 20:00] VITALS: BP 129/73
== END 2020-05-26 20:38 | disposition home or self-care (01) ==
LOC: ED 17:35
DX: R10.84 Generalized abdominal pain (principal); R19.7 Diarrhea, unspecified; R07.89 Other chest pain; E78.5 Hyperlipidemia, unspecified; E11.9 Type 2 diabetes mellitus without complications; K21.9 Gastro-esophageal reflux disease without esophagitis; I25.10 Atherosclerotic heart disease of native coronary artery without angina pectoris; I25.2 Old myocardial infarction; E78.00 Pure hypercholesterolemia, unspecified; I11.0 Hypertensive heart disease with heart failure; I50.9 Heart failure, unspecified; F17.200 Nicotine dependence, unspecified, uncomplicated; Z95.0 Presence of cardiac pacemaker; Z90.49 Acquired absence of other specified parts of digestive tract
CPT/HCPCS: 36415; 74177; 80053; 83690; 85025; 93005; 96374; 96375; 99285; J2270; J2405; Q9967

== ENCOUNTER 2020-08-13 13:00 | Emergency (ER) | payer MEDICARE, MEDICAID ==
[~2020-08-13] VITALS: Ht 165.1 cm; Wt 80.0 kg
[~2020-08-13 13:00] MED LIST changes: +AMLO-211 PO; -AMLO10TA8 PO; -ESCI20TA PO; +ESCI20TA5 PO; +LORA-59 PO; -LORA10TA62 PO
--- NOTE | 2020-08-13 13:10 | NUR ---
workers' compensation hearings officer note: Pt to room from lobby.
[2020-08-13] MEDS ORDERED: MAALOX/HYOSCYAMINE/LIDOCAINE 45 ML BTL PO ONE (13:30)
[2020-08-13] MEDS ORDERED: FAMOTIDINE 20 MG/2 ML IV ONE (13:30)
[2020-08-13] MEDS ORDERED: SODIUM CHLORIDE FLUSH 10ML SYR IVF ONE (13:30)
--- NOTE | 2020-08-13 13:57 | NUR ---
PT BACK FROM IMAGING. IV START, LABS DRAWN AND SENT.
[2020-08-13] MEDS ORDERED: MAALOX/HYOSCYAMINE/LIDOCAINE 45 ML BTL ONE (14:00)
[2020-08-13] MEDS ORDERED: FAMOTIDINE 20 MG/2 ML ONE (14:00)
--- NOTE | 2020-08-13 14:04 | NUR ---
PT AWARE OF NEED FOR UA. MEDICATED PER EMAR.
[2020-08-13 14:18] LABS: BASOPHILS % (AUTO) 0 % (0-1); EOSINOPHILS % (AUTO) 1 % (1-7); LYMPHOCYTES % (AUTO) 15 % (22-44); MEAN CORPUSCULAR HEMOGLOBIN 31.9 pg (27.5-34.5); MEAN CORPUSCULAR HGB CONC 34.5 g/dL (33.2-36.2); MEAN PLATELET VOLUME 7.7 fL (7.4-10.4); MONOCYTES % (AUTO) 6 % (2-9); NEUTROPHILS % (AUTO) 79 % (42-75); PLATELET COUNT 212 x10^3/uL (130-400); RED BLOOD COUNT 5.07 x10^6/uL (4.38-5.82); RED CELL DISTRIBUTION WIDTH 13.8 % (9.4-14.8)
[2020-08-13 14:19] LABS: ANION GAP 6 mmol/L (5-15); CALCIUM 9.7 mg/dL (8.5-10.1); CHLORIDE 106 mmol/L (98-107); CREATININE 1.23 mg/dL (0.7-1.3)
[2020-08-13 14:20] LABS: ALANINE AMINOTRANSFERASE 60 U/L (12-78); ALBUMIN 3.9 g/dL (3.4-5.0)
[2020-08-13 14:22] LABS: ALKALINE PHOSPHATASE 89 U/L (45-117); BILIRUBIN,TOTAL 0.5 mg/dL (0.2-1.0); TOTAL PROTEIN 8.2 g/dL (6.4-8.2)
[2020-08-13 14:24] LABS: MICROSCOPIC NOT IND
[2020-08-13] MEDS ORDERED: NITROGLYCERIN 0.4 MG BOTTLE (25 TABS) SL ONE (14:30)
[2020-08-13] MEDS ORDERED: NITROGLYCERIN SINGLE TAB 0.4 MG SL ONE (14:47)
[2020-08-13 14:48] LABS: MD NO
--- NOTE | 2020-08-13 14:51 | NUR ---
PT SITTING UP IN BED, GIVEN NITRO. NAD NOTED AT THIS TIME. AWAITING MED TO TAKE EFFECT. SIDE RAILS UP, CALL LIGHT IN REACH.
--- NOTE | 2020-08-13 15:10 | NUR ---
DR KEMP NOTIFIED OF PT'S DIFFERENCE IN BP. PT DENIES ANY HX OF ARTERIAL GRAFTING. AWAITING FURTHER OTHERS.
--- NOTE | 2020-08-13 15:30 | NUR ---
REPORT TO LORI LAURA.
[2020-08-13] MEDS ORDERED: OMNIPAQUE 350 MG/ML, 100ML BOTTLE ONE (15:45)
[2020-08-13 16:52] VITALS: BP 142/87
--- NOTE | 2020-08-13 16:52 | NUR ---
PT AMBULATES WELL TO BATHROOM PRIOR TO DC. NAD NOTED.
== END 2020-08-13 17:04 | disposition home or self-care (01) ==
LOC: ED 14:16
DX: R07.89 Other chest pain (principal); R10.84 Generalized abdominal pain; K21.9 Gastro-esophageal reflux disease without esophagitis; E11.9 Type 2 diabetes mellitus without complications; I11.0 Hypertensive heart disease with heart failure; I50.9 Heart failure, unspecified; I25.10 Atherosclerotic heart disease of native coronary artery without angina pectoris; I25.2 Old myocardial infarction; E78.00 Pure hypercholesterolemia, unspecified; E78.5 Hyperlipidemia, unspecified
CPT/HCPCS: 36415; 71275; 74022; 74175; 80053; 81003; 83690; 85025; 93005; 96374; 99285; Q9967

== ENCOUNTER 2020-09-03 09:22 | Inpatient (IN) | payer MEDICARE, MEDICAID ==
[~2020-09-03] VITALS: Ht 165.1 cm; Wt 83.9 kg
[2020-09-03] VITALS (7 sets, daily range): BP systolic 117–181; BP diastolic 78–94
[~2020-09-03 09:22] MED LIST changes: -ASPI-515 PO; +ASPI-963 PO; -CYCL-259 PO; +CYCL10TA2 PO; -ESCI20TA5 PO; +ESCI20TA8 PO; +HYDR-1067 PO; -HYDR-3240 PO; -LISI40TA PO; +LISI40TA9 PO; +METH-639 PO; +METH-640 PO; -METH500T7 PO; -METH750T2 PO; -OXYC5TAB3 PO; +OXYC5TAB98 PO
--- NOTE | 2020-09-03 09:33 | NUR ---
BIB EMS FOR C/O CP STARTED AT 0400 THIS AM. PT HAS EXTENSIVE CARDIAC HX. CABG, [place], PACEMAKER, STENTS. PT ALSO HAS C/O DIARRHEA W/ DARK TARRY STOOLS. PT TOOK 2 SL NITRO W/O RELIEF, TYLENOL, AND TUMS. WAS SEEN HERE FOR SAME 1 MONTH AGO. RELIEF W/ GI COCKTAIL AT THAT TIME. ON PALPATION PAIN NOTED EPIGASTRIC UNDERNEATH RIB CAGE. PT RESTING ON GURNEY. STATES PAIN 8/10. MONITORS APPLIED. EKG COMPLETED. GABBY. VSS.
--- NOTE | 2020-09-03 09:35 | NUR ---
PT STATES HE HAS MAINTENANCE MAN DR. HOUSER HE HASNT FOLLOWED UP W/. PT ALSO STATES NO PCP. HAS NOT TAKEN ANY OF HIS HOME MEDS IN OVER TWO MONTHS PER PT.
--- NOTE | 2020-09-03 09:41 | NUR ---
ERP DR. CHRISTIAN AT BEDSIDE FOR EVAL.
[2020-09-03] MEDS ORDERED: FAMOTIDINE 20 MG/2 ML ONE (09:49)
[2020-09-03] MEDS ORDERED: PANTOPRAZOLE 40 MG IV ONE (09:49)
[2020-09-03] MEDS ORDERED: FAMOTIDINE 20 MG/2 ML IVPush ONE (10:00)
[2020-09-03] MEDS ORDERED: SODIUM CHLORIDE FLUSH 10ML SYR IVF ONE (10:00)
[2020-09-03] MEDS ORDERED: PANTOPRAZOLE 40 MG IV IVPush ONE (10:00)
[2020-09-03 10:09] LABS: BASOPHILS % (AUTO) 0 % (0-1); EOSINOPHILS % (AUTO) 1 % (1-7); LYMPHOCYTES % (AUTO) 15 % (22-44); MEAN CORPUSCULAR HEMOGLOBIN 32.4 pg (27.5-34.5); MEAN CORPUSCULAR HGB CONC 35.2 g/dL (33.2-36.2); MEAN PLATELET VOLUME 7.7 fL (7.4-10.4); MONOCYTES % (AUTO) 6 % (2-9); NEUTROPHILS % (AUTO) 78 % (42-75); PLATELET COUNT 184 x10^3/uL (130-400); RED CELL DISTRIBUTION WIDTH 14.2 % (9.4-14.8)
[2020-09-03 10:13] LABS: MD NO
--- NOTE | 2020-09-03 10:21 | NUR ---
PT RESTING ON GURNEY. NADN. OROZCO.
[2020-09-03 10:23] LABS: ALANINE AMINOTRANSFERASE 42 U/L (12-78); ALBUMIN 3.8 g/dL (3.4-5.0); ANION GAP 5 mmol/L (5-15); CALCIUM 9.7 mg/dL (8.5-10.1); CHLORIDE 107 mmol/L (98-107); CREATININE 1.19 mg/dL (0.7-1.3)
[2020-09-03 10:24] LABS: INTERNATIONAL NORMALIZED RATIO 1.06 (0.93-1.1); PROTHROMBIN TIME 11.3 Seconds (9.6-11.5)
[2020-09-03 10:28] LABS: ALKALINE PHOSPHATASE 79 U/L (45-117); BILIRUBIN,TOTAL 0.6 mg/dL (0.2-1.0); TOTAL PROTEIN 7.6 g/dL (6.4-8.2); TROPONIN I < 0.015 ng/mL (0.000-0.045)
--- NOTE | 2020-09-03 10:56 | NUR ---
REPORT GIVEN TO LORI LIN.
[2020-09-03] MEDS ORDERED: KETOROLAC 30 MG/1 ML ONE (11:28)
[2020-09-03] MEDS ORDERED: KETOROLAC 30 MG/1 ML IVPush ONE (11:30)
--- NOTE | 2020-09-03 11:58 | NUR ---
PT STATES NO PAIN RELIEF WITH MEDS GIVEN. REPORTS PAIN LEVEL 8/10.
[2020-09-03] MEDS ORDERED: ONDANSETRON 2MG/ML, 2ML IVPush PRN (12:00)
[2020-09-03] MEDS ORDERED: ONDANSETRON ODT 4 MG PO PRN (12:00)
[2020-09-03] MEDS ORDERED: GABA600T7 PO (12:07)
[2020-09-03] MEDS ORDERED: OMEP20CA20 PO (12:07)
[2020-09-03] MEDS ORDERED: GABA-827 PO (12:07)
[2020-09-03] MEDS ORDERED: LISI10TA19 PO (12:07)
[2020-09-03] MEDS ORDERED: LINA5TAB PO (12:07)
[2020-09-03] MEDS ORDERED: METOPROLOL 1 MG/ML, 5ML IVPush ONE (12:16)
[2020-09-03] MEDS ORDERED: METOPROLOL 1 MG/ML, 5ML ONE (12:20)
[2020-09-03] MEDS ORDERED: hydrALAzine 20 MG/ML, 1ML IV PRN (12:30)
[2020-09-03] MEDS ORDERED: LABETALOL 5MG/ML, 20ML IVPush PRN (12:30)
[2020-09-03] MEDS ORDERED: NITROGLYCERIN SINGLE TAB 0.4 MG SL PRN (12:30)
[2020-09-03] MEDS ORDERED: MAALOX/HYOSCYAMINE/LIDOCAINE 45 ML BTL PO PRN (12:30)
[2020-09-03] MEDS ORDERED: LABETALOL 5MG/ML, 20ML ONE (12:31)
--- NOTE | 2020-09-03 12:55 | NUR ---
REPORT TO LES SANDOVAL.
[2020-09-03] MEDS: GABAPENTIN 300 MG CAPSULE PO SCH ×3 (14:53→20:38)
[2020-09-03] MEDS: LISINOPRIL 10 MG TABLET PO SCH (14:53)
[2020-09-03] MEDS: DULOXETINE 30 MG CAPSULE.DR PO SCH (14:53)
[2020-09-03] MEDS: ASPIRIN 81 MG TABLET EC PO SCH (14:53)
[2020-09-03] MEDS: ACETAMINOPHEN 325 MG TABLET PO PRN ×2 (16:37→20:38)
[2020-09-03 16:43] LABS: TROPONIN I < 0.015 ng/mL (0.000-0.045)
[2020-09-03] MEDS: CARVEDILOL 6.25 MG TABLET PO SCH (18:07)
[2020-09-03] MEDS: ENOXAPARIN 40 MG/0.4 ML SQ SCH (18:07)
[2020-09-03] MEDS ORDERED: NITROGLYCERIN 0.4 MG BOTTLE (25 TABS) SL ONE (18:26)
[2020-09-03] MEDS: ATORVASTATIN 40 MG TABLET PO SCH (20:38)
[2020-09-03] MEDS: QUETIAPINE 100MG TABLET PO SCH (20:38)
[2020-09-03] MEDS ORDERED: MELATONIN 5 MG TABLET PO PRN (21:00)
[2020-09-03] MEDS ORDERED: TRAZODONE 50MG TABLET PO PRN (21:00)
[2020-09-03 22:16] LABS: CLOSTRIDIUM DIFFICILE ANTIGEN NEGATIVE; CLOSTRIDIUM DIFFICILE TOXIN NEGATIVE (Negative)
[2020-09-03 22:43] LABS: TROPONIN I < 0.015 ng/mL (0.000-0.045)
[2020-09-04 03:20] VITALS: BP_SYST 79; BP_SYST 85; BP_DIAS 49; BP_DIAS 52
[2020-09-04 07:52] VITALS: BP 116/72
[2020-09-04] MEDS ORDERED: REGADENOSON 0.4 MG/5 ML SYRINGE ONE (08:20)
[2020-09-04] MEDS: DULOXETINE 30 MG CAPSULE.DR PO SCH (08:30)
[2020-09-04] MEDS: CARVEDILOL 6.25 MG TABLET PO SCH ×2 (08:30→17:00)
[2020-09-04] MEDS: OMEPRAZOLE 20 MG CAPSULE.DR PO SCH (08:30)
[2020-09-04] MEDS: LISINOPRIL 10 MG TABLET PO SCH (08:30)
[2020-09-04] MEDS: GABAPENTIN 300 MG CAPSULE PO SCH ×3 (08:30→21:05)
[2020-09-04] MEDS: ASPIRIN 81 MG TABLET EC PO SCH (08:30)
[2020-09-04] MEDS ORDERED: METOCLOPRAMIDE 5 MG/ML, 2ML IVPush PRN (10:30)
[2020-09-04 12:40] VITALS: BP 108/67
[2020-09-04] MEDS: ENOXAPARIN 40 MG/0.4 ML SQ SCH (17:01)
[2020-09-04 19:39] VITALS: BP 111/72
[2020-09-04] MEDS: ATORVASTATIN 40 MG TABLET PO SCH (21:05)
[2020-09-04] MEDS: QUETIAPINE 100MG TABLET PO SCH (21:06)
[2020-09-05 00:47] VITALS: BP_SYST 87; BP_SYST 91; BP_DIAS 52; BP_DIAS 55
[2020-09-05 05:24] LABS: ANION GAP 4 mmol/L (5-15); CALCIUM 8.3 mg/dL (8.5-10.1); CHLORIDE 110 mmol/L (98-107); CREATININE 1.44 mg/dL (0.7-1.3)
[2020-09-05 05:26] LABS: BASOPHILS % (AUTO) 1 % (0-1); EOSINOPHILS % (AUTO) 3 % (1-7); LYMPHOCYTES % (AUTO) 29 % (22-44); MEAN CORPUSCULAR HEMOGLOBIN 32.1 pg (27.5-34.5); MEAN CORPUSCULAR HGB CONC 34.5 g/dL (33.2-36.2); MEAN PLATELET VOLUME 8.2 fL (7.4-10.4); MONOCYTES % (AUTO) 11 % (2-9); NEUTROPHILS % (AUTO) 57 % (42-75); PLATELET COUNT 151 x10^3/uL (130-400); RED BLOOD COUNT 4.03 x10^6/uL (4.38-5.82)
[2020-09-05] MEDS: CARVEDILOL 6.25 MG TABLET PO SCH (05:29)
[2020-09-05] MEDS: OMEPRAZOLE 20 MG CAPSULE.DR PO SCH (05:29)
[2020-09-05 05:33] VITALS: BP 123/69
[2020-09-05 05:40] LABS: MD NO
[2020-09-05 07:28] VITALS: BP 137/69
[2020-09-05] MEDS: FAMOTIDINE 20 MG TABLET PO SCH ×2 (08:30→08:55)
[2020-09-05] MEDS ORDERED: NS + 40MEQ KCL 1,000 ML IV SCH (08:30)
[2020-09-05] MEDS ORDERED: FAMOTIDINE 40 MG TABLET ONE (08:49)
[2020-09-05] MEDS: GABAPENTIN 300 MG CAPSULE PO SCH (08:56)
[2020-09-05] MEDS: LISINOPRIL 10 MG TABLET PO SCH (08:56)
[2020-09-05] MEDS: DULOXETINE 30 MG CAPSULE.DR PO SCH ×2 (08:56→08:58)
[2020-09-05] MEDS: ASPIRIN 81 MG TABLET EC PO SCH (08:56)
[2020-09-05] MEDS ORDERED: METO5TAB57 PO (11:11)
== END 2020-09-05 12:00 | disposition home or self-care (01) | DRG 74 ==
LOC: ED 10:22 → SUATTDRO 11:49 → OBSVTOIN 12:38 → EDIP 12:38 → INTOOBSV 12:38 → 5SO 13:09 → DCLOUNGE 09-05 11:33
PROVIDERS: ADMIT Family Medicine; ATTEND Family Medicine
DX: E11.43 Type 2 diabetes mellitus with diabetic autonomic (poly)neuropathy (principal); I50.22 Chronic systolic (congestive) heart failure; K21.9 Gastro-esophageal reflux disease without esophagitis; R07.89 Other chest pain; E66.9 Obesity, unspecified; Z68.30 Body mass index [BMI] 30.0-30.9, adult; E78.5 Hyperlipidemia, unspecified; F39 Unspecified mood [affective] disorder; F41.9 Anxiety disorder, unspecified; I11.0 Hypertensive heart disease with heart failure; I25.5 Ischemic cardiomyopathy; K31.84 Gastroparesis; Z66 Do not resuscitate; Z82.3 Family history of stroke; Z82.49 Family history of ischemic heart disease and other diseases of the circulatory system; Z83.3 Family history of diabetes mellitus; Z91.14 Patient's other noncompliance with medication regimen; Z95.1 Presence of aortocoronary bypass graft; Z95.5 Presence of coronary angioplasty implant and graft; Z95.810 Presence of automatic (implantable) cardiac defibrillator; Z90.49 Acquired absence of other specified parts of digestive tract
CPT/HCPCS: 36415; 71045; 74018; 78452; 80048; 80053; 83036; 83605; 84484; 85025; 85610; 85730; 87324; 93005; 93017; 96374; 96375; 99285; C8929; G0378; J1650; J1885; J2405; J2785; Q9957; A9502; C9113; J0360; J2765; J3480

== ENCOUNTER 2020-10-16 21:00 | Emergency (ER) | payer MEDICARE, MEDICAID ==
[~2020-10-16] VITALS: Ht 165.1 cm; Wt 79.5 kg
[~2020-10-16 21:00] MED LIST changes: +GABA-827 PO; +LISI10TA19 PO; +OMEP20CA20 PO
--- NOTE | 2020-10-16 21:10 | NUR ---
BIB EMS FOR SUDDEN ONSET EPISTAXIS X 30 MIN. BLEEDING CONTROLLED UPON ARRIVAL TO ED WITH NOSE CLAMP. PT. DENIES TRAUMA. DENIES BLOOD THINNERS. DENIES DUENAS OR ANY OTHER PAIN. SUCTION READY AT BS. PT. PROVIDED WITH WARM WASHCLOTHS FOR CLEANSING HIS FACE/HANDS. REPORT TO LORI MONTANO TO ASSUME CARE OF PT. CONTINUOUS PULSE OX AND B/P MONITORS PLACED. CALL LIGHT IN REACH. AWAITING PROVIDER EVAL.
[2020-10-16] MEDS ORDERED: OXYMETAZOLINE NASAL SPRAY 0.05%,30ML NAS ONE (21:30)
[2020-10-16] MEDS ORDERED: OXYMETAZOLINE NASAL SPRAY 0.05%,30ML ONE (21:35)
--- NOTE | 2020-10-16 21:39 | NUR ---
PATIENT RESTING IN BED WITH NOSE CLAMP REMAINING IN PLACE. REQUESTING WATER. I NOTIFIED HIM WE WOULD WAIT UNTIL AFRIN IS ADMINISTERED AND PATIENT WAS OK WITH THIS PLAN. MODERATE SIZED CLOTS AT END OF NARES WITH NO ACTIVE BLEEDING AT THIS TIME. PATIENT HAS BLOOD TINGED SPIT WITH CLOTS PATIENT SHOWED ME WHILE I WAS IN ROOM "SEE, LOOK. THERES CLOTS". RN EDUCATED ON REASON FOR THIS CALL CASTILLO IN REACH. SAFETY MAINTAINED. WILL CONTINUE TO MONITOR.
--- NOTE | 2020-10-16 23:33 | NUR ---
REVIEWED DC INSTRUCTIONS WITH PATIENT. EPISTAXIS STILL ACTIVE FOR SMALL AMOUNT OF BLOOD. DR. PALUMBO NOTIFIED AND WILL [facility] NOSE CLAMP ON AND GIVE MORE TIME. CALL CASTILLO IN REACH
--- NOTE | 2020-10-17 00:12 | NUR ---
NOSE CLAMP REMOVED
--- NOTE | 2020-10-17 00:47 | NUR ---
DISCHARGE INSTRUCTIONS AGAIN REVIEWED WITH PATIENT. NO BLEEDING AT THIS TIME OTHER THAN SCANT SPOTS OF BLOOD ON KLENEX WHEN PATIENT DABS NARES. DR. PALUMBO NOTIFIED AND PATIENT IS OK TO BE DISCHARGED. I EXPLAINED TO PATIENT THAT IF THE NOSE BLEED STARTS AGAIN, TO APPLY PROVIDED [facility] NOSE CLAMP AND IF NOT RESOLVED IN 15 MINUTES TO COME BACK. HE ACKNOWLEDGED THIS TEACHING/INSTRUCTION. STEADY GAIT WITH CANE TO LOBBY. ALL PERSONAL BELONGINGS WITH PATIENT ON DC. DENIES DIZZINESS
[2020-10-17 00:49] VITALS: BP 141/84
== END 2020-10-17 00:51 | disposition home or self-care (01) ==
LOC: ED 21:31
DX: R04.0 Epistaxis (principal); I11.0 Hypertensive heart disease with heart failure; I50.9 Heart failure, unspecified; E11.9 Type 2 diabetes mellitus without complications; I25.2 Old myocardial infarction; E78.5 Hyperlipidemia, unspecified; E78.00 Pure hypercholesterolemia, unspecified; I25.10 Atherosclerotic heart disease of native coronary artery without angina pectoris; Z98.61 Coronary angioplasty status; Z90.49 Acquired absence of other specified parts of digestive tract; Z95.0 Presence of cardiac pacemaker
CPT/HCPCS: 99283

== ENCOUNTER 2020-10-24 09:52 | Emergency (ER) | payer MEDICARE, MEDICAID ==
[~2020-10-24] VITALS: Ht 162.6 cm; Wt 82.0 kg
[2020-10-24 09:53] VITALS: BP 182/107
[2020-10-24] MEDS ORDERED: MAALOX/HYOSCYAMINE/LIDOCAINE 45 ML BTL ONE (10:05)
--- NOTE | 2020-10-24 10:08 | NUR ---
PT BIB EMS FOR CO LEFT CHEST PAIN AND STOMACH PAIN WITH NAUSEA. STARTED TODAY. TENDER TO PALPITATION IN CHEST AND SHOULDER. PT DENIES INJURY OR FALL. HX OF [place], DM2 HTN IN ROUTE , NITROX2 ELECTRICAL ASSEMBLY SUPERVISOR IN PLACE, GIVEN GI COCKTAIL. SEEN BY MD ANSARI
[2020-10-24 10:19] LABS: BASOPHILS % (AUTO) 1 % (0-1); EOSINOPHILS % (AUTO) 1 % (1-7); LYMPHOCYTES % (AUTO) 15 % (22-44); MEAN CORPUSCULAR HEMOGLOBIN 32.4 pg (27.5-34.5); MEAN CORPUSCULAR HGB CONC 34.6 g/dL (33.2-36.2); MEAN PLATELET VOLUME 8.1 fL (7.4-10.4); MONOCYTES % (AUTO) 6 % (2-9); NEUTROPHILS % (AUTO) 78 % (42-75); PLATELET COUNT 192 x10^3/uL (130-400); RED BLOOD COUNT 4.76 x10^6/uL (4.38-5.82); RED CELL DISTRIBUTION WIDTH 13.8 % (9.4-14.8)
[2020-10-24 10:23] LABS: MD NO
[2020-10-24] MEDS ORDERED: MAALOX/HYOSCYAMINE/LIDOCAINE 45 ML BTL PO ONE (10:30)
[2020-10-24 10:33] LABS: ALBUMIN 3.9 g/dL (3.4-5.0); ANION GAP 7 mmol/L (5-15); CALCIUM 9.6 mg/dL (8.5-10.1); CHLORIDE 106 mmol/L (98-107); CREATININE 0.97 mg/dL (0.7-1.3)
[2020-10-24 10:36] LABS: TROPONIN I 0.043 ng/mL (0.000-0.045)
[2020-10-24] MEDS ORDERED: ONDANSETRON ODT 4 MG ONE (10:47)
--- NOTE | 2020-10-24 10:52 | NUR ---
Patient given discharge instructions and they have confirmed that they understand the instructions. Patient ambulatory with steady gait.
--- NOTE | 2020-10-24 10:52 | NUR ---
PT AMBULATED TO BATHROOM W STEADY GAIT
[2020-10-24] MEDS ORDERED: ONDANSETRON ODT 4 MG PO ONE (11:00)
== END 2020-10-24 10:55 | disposition home or self-care (01) ==
LOC: ED 10:29
DX: R07.2 Precordial pain (principal); R10.9 Unspecified abdominal pain; E11.9 Type 2 diabetes mellitus without complications; I25.10 Atherosclerotic heart disease of native coronary artery without angina pectoris; I25.2 Old myocardial infarction; I11.0 Hypertensive heart disease with heart failure; I50.9 Heart failure, unspecified; E78.00 Pure hypercholesterolemia, unspecified; E78.5 Hyperlipidemia, unspecified; Z98.61 Coronary angioplasty status; Z90.49 Acquired absence of other specified parts of digestive tract; Z95.0 Presence of cardiac pacemaker; Z95.1 Presence of aortocoronary bypass graft
CPT/HCPCS: 36415; 80048; 82040; 84484; 85025; 93005; 99284; Q0162

== ENCOUNTER 2020-11-05 21:33 | Emergency (ER) | payer MEDICARE, MEDICAID ==
[~2020-11-05] VITALS: Ht 165.1 cm; Wt 85.0 kg
[~2020-11-05 21:33] MED LIST changes: +TICA90TA PO
--- NOTE | 2020-11-05 21:45 | NUR ---
PT STEPHANIE. PER EMS PT WAS DISCHARGED FROM THIS FACILITY YESTERDAY 11/04, AFTER AN NSTEMI AND CABG PROCEDURE. PT CALLED EMS [facility] D/T CP SINCE YESTERDAY THAT HAS NOT IMPROVED. PT DID NOT TAKE PRESCRIBED NITRO AT HOME. EMS GAVE PT 325MG OF ASPIRIN. PT RESTING IN [facility], MONITORING IN PLACE, EKG DONE, NADN AT THIS TIME, WCTM.
[2020-11-05 22:41] LABS: BASOPHILS % (AUTO) 1 % (0-1); EOSINOPHILS % (AUTO) 2 % (1-7); LYMPHOCYTES % (AUTO) 12 % (22-44); MD NO; MEAN CORPUSCULAR HEMOGLOBIN 32.2 pg (27.5-34.5); MEAN CORPUSCULAR HGB CONC 34.4 g/dL (33.2-36.2); MEAN PLATELET VOLUME 8.9 fL (7.4-10.4); MONOCYTES % (AUTO) 10 % (2-9); NEUTROPHILS % (AUTO) 76 % (42-75); PLATELET COUNT 211 x10^3/uL (130-400); RED BLOOD COUNT 3.82 x10^6/uL (4.38-5.82); RED CELL DISTRIBUTION WIDTH 13.5 % (9.4-14.8)
[2020-11-05 22:52] LABS: ALBUMIN 3.1 g/dL (3.4-5.0); ANION GAP 8 mmol/L (5-15); CHLORIDE 109 mmol/L (98-107); CREATININE 1.09 mg/dL (0.7-1.3)
--- NOTE | 2020-11-05 23:13 | NUR ---
PT AMBULATED TO BATHROOM STEADILY.
--- NOTE | 2020-11-06 00:52 | NUR ---
REPORT GIVEN TO LORI RODRIGUEZ.
[2020-11-06 01:27] VITALS: BP 136/81
== END 2020-11-06 01:29 | disposition home or self-care (01) ==
LOC: ED 21:39
DX: I20.0 Unstable angina (principal); R07.89 Other chest pain; E11.9 Type 2 diabetes mellitus without complications; E78.5 Hyperlipidemia, unspecified; K21.9 Gastro-esophageal reflux disease without esophagitis; I11.0 Hypertensive heart disease with heart failure; I50.9 Heart failure, unspecified; I25.2 Old myocardial infarction; E78.00 Pure hypercholesterolemia, unspecified; Z98.61 Coronary angioplasty status; Z90.49 Acquired absence of other specified parts of digestive tract; Z95.0 Presence of cardiac pacemaker; Z95.1 Presence of aortocoronary bypass graft
CPT/HCPCS: 36415; 71045; 80048; 82040; 84484; 85025; 93005; 99285

== ENCOUNTER 2021-04-02 09:38 | Inpatient (IN) | payer MEDICARE, MEDICAID ==
[~2021-04-02] VITALS: Ht 165.1 cm; Wt 82.5 kg
[~2021-04-02 09:38] MED LIST changes: -HYDR-1067 PO; +HYDR-2214 PO; -LISI2.5T PO; +LISI2.5T12 PO; -OMEP40CA42 PO; +OMEP40CA8 PO; -QUET100T PO; +QUET100T2 PO
[2021-04-02] MEDS ORDERED: ONDANSETRON 2MG/ML, 2ML ONE (10:27)
[2021-04-02] MEDS ORDERED: MORPHINE SULFATE 4 MG/ML, 1ML ONE (10:27)
[2021-04-02] MEDS ORDERED: MORPHINE SULFATE 4 MG/ML, 1ML IVPush PRN (10:30)
[2021-04-02] MEDS ORDERED: SODIUM CHLORIDE FLUSH 10ML SYR IVF ONE (10:30)
[2021-04-02] MEDS ORDERED: SODIUM CHLORIDE 0.9% 1,000ML IVBOLUS ONE (10:30)
[2021-04-02] MEDS ORDERED: ONDANSETRON 2MG/ML, 2ML IVPush ONE (10:30)
[2021-04-02 11:00] LABS: ALANINE AMINOTRANSFERASE 33 U/L (12-78); ALBUMIN 3.6 g/dL (3.4-5.0); ANION GAP 9 mmol/L (5-15); CALCIUM 8.7 mg/dL (8.5-10.1); CHLORIDE 104 mmol/L (98-107)
[2021-04-02 11:04] LABS: BASOPHILS % (AUTO) 0 % (0-1); EOSINOPHILS % (AUTO) 2 % (1-7); LYMPHOCYTES % (AUTO) 16 % (22-44); MEAN CORPUSCULAR HEMOGLOBIN 31.6 pg (27.5-34.5); MONOCYTES % (AUTO) 6 % (2-9); NEUTROPHILS % (AUTO) 76 % (42-75); PLATELET COUNT 197 x10^3/uL (130-400); RED BLOOD COUNT 4.98 x10^6/uL (4.38-5.82); RED CELL DISTRIBUTION WIDTH 14.6 % (9.4-14.8)
[2021-04-02 11:06] LABS: ALKALINE PHOSPHATASE 77 U/L (45-117); BILIRUBIN,TOTAL 0.6 mg/dL (0.2-1.0); CREATININE 1.05 mg/dL (0.7-1.3); TOTAL PROTEIN 8.1 g/dL (6.4-8.2); TROPONIN I 0.028 ng/mL (0.000-0.045)
--- NOTE | 2021-04-02 11:33 | NUR ---
PT TO GO VIA WHEELCHAIR WITH AVIATION SAFETY INSPECTOR FOR DECON PRIOR TO CT SCAN. NAD NOTED AT THIS TIME IN PT.
--- NOTE | 2021-04-02 11:49 | NUR ---
REPORT TO LORI MARI. PT MOVE TO ER 15.
[2021-04-02] MEDS ORDERED: OMNIPAQUE 350 MG/ML, 100ML BOTTLE ONE (12:19)
[2021-04-02 14:32] LABS: MICROSCOPIC AUTO
--- NOTE | 2021-04-02 15:48 | NUR ---
BREAK RN: PT. VS UPDATED. HOSPITAL BED REQUESTED FOR PT. PT. TO BE HOLD IN ED.
--- NOTE | 2021-04-02 16:01 | NUR ---
PT. REQUESTED THIS RN CALL HIS ROOM MATE AND LET HIM KNOW HE WILL BE STAYING IN THE HOSPITAL OVERNIGHT. CALLED SUNNY([phone]) PER PT. REQUEST. REPORT BACK TO LORI MARI.
[2021-04-02] MEDS ORDERED: morphine SULFATE 10 MG/ML, 1ML IV PRN (17:00)
[2021-04-02] MEDS ORDERED: morphine SULFATE 10 MG/ML, 1ML IVPush PRN (17:00)
[2021-04-02] MEDS ORDERED: ONDANSETRON 2MG/ML, 2ML IV PRN (17:00)
[2021-04-02] MEDS ORDERED: ACETAMINOPHEN 325 MG TABLET PO PRN (17:00)
[2021-04-02] MEDS ORDERED: BISACODYL 10 MG SUPP PR PRN (17:00)
[2021-04-02 17:52] LABS: TROPONIN I 0.033 ng/mL (0.000-0.045)
--- NOTE | 2021-04-02 18:18 | NUR ---
TASK RN: PT. PLACED ON HOSPITAL BED AND PROVIDED WITH MEAL TRAY.
[2021-04-02 18:44] VITALS: BP 157/101
[2021-04-02] MEDS: POLYETHYLENE GLYCOL 17 GM PACKET NG SCH ×2 (22:06→22:07)
[2021-04-02] MEDS: RANOLAZINE 500 MG TAB.ER.12H PO SCH (22:10)
[2021-04-02] MEDS: SENNA/DOCUSATE TABLET PO SCH (22:11)
[2021-04-02] MEDS: TICAGRELOR 90 MG TABLET PO SCH (22:11)
[2021-04-02] MEDS: QUETIAPINE 100MG TABLET PO SCH (22:11)
[2021-04-02] MEDS: ENOXAPARIN 40 MG/0.4 ML SQ SCH (22:11)
[2021-04-02] MEDS: CARVEDILOL 6.25 MG TABLET PO SCH (22:11)
[2021-04-02] MEDS: GABAPENTIN 300 MG CAPSULE PO SCH (22:11)
[2021-04-02] MEDS: ATORVASTATIN 40 MG TABLET PO SCH (22:11)
[2021-04-02] MEDS: SODIUM CHLORIDE FLUSH 10ML SYR IVF SCH (22:15)
[2021-04-02 23:04] LABS: TROPONIN I 0.019 ng/mL (0.000-0.045)
[2021-04-03 02:02] VITALS: BP 152/96
[2021-04-03] MEDS ORDERED: ASPIRIN 325 MG TABLET EC PO SCH (06:00)
[2021-04-03] MEDS: CARVEDILOL 6.25 MG TABLET PO SCH ×2 (06:08→17:23)
[2021-04-03 06:46] LABS: BASOPHILS % (AUTO) 0 % (0-1); EOSINOPHILS % (AUTO) 2 % (1-7); LYMPHOCYTES % (AUTO) 24 % (22-44); MEAN CORPUSCULAR HEMOGLOBIN 31.7 pg (27.5-34.5); MEAN CORPUSCULAR HGB CONC 34.1 g/dL (33.2-36.2); MONOCYTES % (AUTO) 8 % (2-9); NEUTROPHILS % (AUTO) 66 % (42-75); PLATELET COUNT 186 x10^3/uL (130-400); RED CELL DISTRIBUTION WIDTH 14.7 % (9.4-14.8)
[2021-04-03 06:50] LABS: ANION GAP 8 mmol/L (5-15); CALCIUM 9.3 mg/dL (8.5-10.1); CHLORIDE 105 mmol/L (98-107)
[2021-04-03 07:00] LABS: ALANINE AMINOTRANSFERASE 31 U/L (12-78); ALBUMIN 3.2 g/dL (3.4-5.0); ALKALINE PHOSPHATASE 65 U/L (45-117); BILIRUBIN,TOTAL 0.7 mg/dL (0.2-1.0); CHOL/HDL RATIO 8.5; CHOLESTEROL, TOTAL 282 mg/dL (140-239); CREATININE 1.14 mg/dL (0.7-1.3); HDL CHOL % 12 % (26-37); HDL CHOLESTEROL (DIRECT) 33 mg/dL (40-60); LDL CHOLESTEROL,CALCULATED 182 mg/dL (54-169); LDL/HDL RATIO 5.5 (0.5-3.0); TOTAL PROTEIN 7.3 g/dL (6.4-8.2); TRIGLYCERIDES 337 mg/dL (50-200); VLDL CHOLESTEROL 67 mg/dL (0-25)
[2021-04-03 07:26] VITALS: BP 115/78
[2021-04-03 08:46] VITALS: BP 117/81
[2021-04-03] MEDS: SENNA/DOCUSATE TABLET PO SCH ×2 (08:52→20:04)
[2021-04-03] MEDS: SODIUM CHLORIDE FLUSH 10ML SYR IVF SCH ×2 (08:52→20:12)
[2021-04-03] MEDS: LINAGLIPTIN 5 MG TAB PO SCH (08:53)
[2021-04-03] MEDS: TICAGRELOR 90 MG TABLET PO SCH (08:53)
[2021-04-03] MEDS: GABAPENTIN 300 MG CAPSULE PO SCH ×3 (08:53→20:04)
[2021-04-03] MEDS: RANOLAZINE 500 MG TAB.ER.12H PO SCH ×2 (08:57→20:03)
[2021-04-03] MEDS ORDERED: ISOSORBIDE MONONITRATE ER 30 MG TABLET PO SCH (09:00)
[2021-04-03] MEDS ORDERED: LISINOPRIL 10 MG TABLET PO SCH (09:00)
[2021-04-03] MEDS: POLYETHYLENE GLYCOL 17 GM PACKET NG SCH ×3 (09:23→20:13)
[2021-04-03 13:58] VITALS: BP 86/57
[2021-04-03] MEDS ORDERED: SODIUM CHLORIDE 0.9%, 250ML IVBOLUS ONE (15:00)
[2021-04-03 16:01] VITALS: BP 98/63
[2021-04-03 19:49] VITALS: BP 122/86
[2021-04-03] MEDS: ATORVASTATIN 40 MG TABLET PO SCH (20:03)
[2021-04-03] MEDS: ENOXAPARIN 40 MG/0.4 ML SQ SCH (20:04)
[2021-04-03] MEDS: QUETIAPINE 100MG TABLET PO SCH (20:04)
[2021-04-04 01:18] VITALS: BP 118/79
[2021-04-04] MEDS: ASPIRIN 81 MG TABLET EC PO SCH (05:31)
[2021-04-04 05:50] LABS: BASOPHILS % (AUTO) 0 % (0-1); EOSINOPHILS % (AUTO) 1 % (1-7); LYMPHOCYTES % (AUTO) 15 % (22-44); MEAN CORPUSCULAR HEMOGLOBIN 31.8 pg (27.5-34.5); MEAN CORPUSCULAR HGB CONC 34.3 g/dL (33.2-36.2); MEAN PLATELET VOLUME 8.1 fL (7.4-10.4); MONOCYTES % (AUTO) 9 % (2-9); NEUTROPHILS % (AUTO) 75 % (42-75); PLATELET COUNT 183 x10^3/uL (130-400); RED BLOOD COUNT 4.42 x10^6/uL (4.38-5.82); RED CELL DISTRIBUTION WIDTH 14.7 % (9.4-14.8)
[2021-04-04 06:02] LABS: CHLORIDE 105 mmol/L (98-107)
[2021-04-04 06:07] LABS: ANION GAP 7 mmol/L (5-15); CALCIUM 8.8 mg/dL (8.5-10.1); CREATININE 1.74 mg/dL (0.7-1.3)
[2021-04-04 07:40] VITALS: BP 114/74
[2021-04-04] MEDS: ISOSORBIDE MONONITRATE ER 30 MG TABLET PO SCH (09:26)
[2021-04-04] MEDS: CARVEDILOL 6.25 MG TABLET PO SCH ×2 (09:26→17:37)
[2021-04-04] MEDS: SENNA/DOCUSATE TABLET PO SCH ×2 (09:26→21:00)
[2021-04-04] MEDS: CLOPIDOGREL 75 MG TABLET PO SCH (09:26)
[2021-04-04] MEDS: POLYETHYLENE GLYCOL 17 GM PACKET NG SCH ×5 (09:26→21:00)
[2021-04-04] MEDS: SODIUM CHLORIDE FLUSH 10ML SYR IVF SCH ×2 (09:27→21:34)
[2021-04-04] MEDS: GABAPENTIN 300 MG CAPSULE PO SCH ×3 (09:27→21:35)
[2021-04-04] MEDS: RANOLAZINE 500 MG TAB.ER.12H PO SCH ×2 (09:27→21:00)
[2021-04-04] MEDS: LINAGLIPTIN 5 MG TAB PO SCH (09:27)
[2021-04-04] MEDS: PANTOPRAZOLE 40MG TABLET PO SCH ×2 (10:15→16:48)
[2021-04-04] MEDS: ALBUMIN HUMAN 25% 100 ML IV SCH ×2 (12:06→17:37)
[2021-04-04 14:48] VITALS: BP 101/65
[2021-04-04 17:28] VITALS: BP 112/73
[2021-04-04 19:26] VITALS: BP 148/93
[2021-04-04] MEDS: QUETIAPINE 100MG TABLET PO SCH (21:35)
[2021-04-04] MEDS: ATORVASTATIN 40 MG TABLET PO SCH (21:35)
[2021-04-04] MEDS: ENOXAPARIN 40 MG/0.4 ML SQ SCH (21:37)
[2021-04-05 02:00] VITALS: BP 134/82
[2021-04-05 05:34] VITALS: BP 120/72
[2021-04-05] MEDS: CARVEDILOL 6.25 MG TABLET PO SCH (05:36)
[2021-04-05] MEDS: ASPIRIN 81 MG TABLET EC PO SCH (05:36)
[2021-04-05] MEDS: PANTOPRAZOLE 40MG TABLET PO SCH (05:38)
[2021-04-05 05:56] LABS: BASOPHILS % (AUTO) 1 % (0-1); EOSINOPHILS % (AUTO) 1 % (1-7); LYMPHOCYTES % (AUTO) 24 % (22-44); MEAN CORPUSCULAR HGB CONC 34.2 g/dL (33.2-36.2); MEAN PLATELET VOLUME 7.9 fL (7.4-10.4); MONOCYTES % (AUTO) 11 % (2-9); NEUTROPHILS % (AUTO) 63 % (42-75); PLATELET COUNT 166 x10^3/uL (130-400); RED BLOOD COUNT 4.18 x10^6/uL (4.38-5.82); RED CELL DISTRIBUTION WIDTH 14.5 % (9.4-14.8)
[2021-04-05 06:08] LABS: ANION GAP 5 mmol/L (5-15); CALCIUM 8.8 mg/dL (8.5-10.1); CHLORIDE 107 mmol/L (98-107); CREATININE 1.37 mg/dL (0.7-1.3)
[2021-04-05] MEDS: POLYETHYLENE GLYCOL 17 GM PACKET NG SCH ×2 (07:46)
[2021-04-05] MEDS: LINAGLIPTIN 5 MG TAB PO SCH (08:35)
[2021-04-05] MEDS: CLOPIDOGREL 75 MG TABLET PO SCH (08:36)
[2021-04-05] MEDS: GABAPENTIN 300 MG CAPSULE PO SCH (08:37)
[2021-04-05] MEDS: RANOLAZINE 500 MG TAB.ER.12H PO SCH (08:38)
[2021-04-05] MEDS: ISOSORBIDE MONONITRATE ER 30 MG TABLET PO SCH (08:39)
[2021-04-05] MEDS: SODIUM CHLORIDE FLUSH 10ML SYR IVF SCH (08:40)
[2021-04-05] MEDS: SENNA/DOCUSATE TABLET PO SCH (08:40)
[2021-04-05 11:05] VITALS: BP 120/69
[2021-04-05] MEDS ORDERED: POLY17PO5 NG (12:04)
[2021-04-05] MEDS ORDERED: RANO500T2 PO (12:04)
[2021-04-05] MEDS ORDERED: ATOR40TA78 PO (12:04)
[2021-04-05] MEDS ORDERED: ASPI81TA45 PO (12:04)
[2021-04-05] MEDS ORDERED: PANT40TA6 PO (12:04)
[2021-04-05] MEDS ORDERED: SENN-211 PO (12:04)
[2021-04-05] MEDS ORDERED: GABA300C PO (12:04)
[2021-04-05] MEDS ORDERED: CARV3.1212 PO (12:04)
[2021-04-05] MEDS ORDERED: CLOP75TA PO (12:04)
[2021-04-05 14:08] VITALS: BP 120/79
[2021-04-05] MEDS ORDERED: ISOS60TA36 PO (21:37)
== END 2021-04-05 16:34 | disposition home health service (06) | DRG 303 ==
LOC: ED 09:55 → EDIP 14:19 → 5SO 18:34
PROVIDERS: ADMIT Internal Medicine; ATTEND Internal Medicine
DX: I25.119 Atherosclerotic heart disease of native coronary artery with unspecified angina pectoris (principal); E87.1 Hypo-osmolality and hyponatremia; N17.9 Acute kidney failure, unspecified; I25.5 Ischemic cardiomyopathy; D72.828 Other elevated white blood cell count; E11.9 Type 2 diabetes mellitus without complications; E78.5 Hyperlipidemia, unspecified; F12.90 Cannabis use, unspecified, uncomplicated; G89.29 Other chronic pain; I10 Essential (primary) hypertension; K59.00 Constipation, unspecified; F32.9 Major depressive disorder, single episode, unspecified; I25.2 Old myocardial infarction; Z82.3 Family history of stroke; Z82.49 Family history of ischemic heart disease and other diseases of the circulatory system; Z82.5 Family history of asthma and other chronic lower respiratory diseases; Z90.49 Acquired absence of other specified parts of digestive tract; Z91.19 Patient's noncompliance with other medical treatment and regimen; Z95.1 Presence of aortocoronary bypass graft; Z95.5 Presence of coronary angioplasty implant and graft; Z95.810 Presence of automatic (implantable) cardiac defibrillator
CPT/HCPCS: 36415; 71045; 74177; 80048; 80053; 80061; 81001; 83690; 83735; 83880; 84100; 84443; 84484; 85025; 85379; 93005; 99285; G0378; J1650; J2405; P9047; Q9967; J2270; J7030; J7050